=== PATIENT | female | born 1940 | race Caucasian/White ===

== ENCOUNTER 2020-02-27 22:48 | Inpatient (IN) | payer OTHER ==
[~2020-02-27] VITALS: Ht 157.5 cm; Wt 49.4 kg
[2020-02-28] MEDS ORDERED: MORPHINE SULFATE 4 MG/ML SYR/VIAL IV ONE (01:15)
[2020-02-28] MEDS ORDERED: ONDANSETRON HCL 4 MG/2 ML VIAL IV ONE (01:15)
[2020-02-28 01:37] LABS: Basophils # (auto) 0 10 ^3/uL (0-0.2); Basophils % (auto) 0.3 % (0.0-2.0); Eosinophils # (auto) 0.1 10 ^3/uL (0-0.8); Eosinophils % (auto) 0.5 % (0.0-7.0); Hematocrit 40.6 % (36.0-46.0); Hemoglobin 13.3 g/dL (12.2-16.2); Lymphocytes # (auto) 1.7 10 ^3/uL (0.4-5.4); Lymphocytes % (auto) 14.9 % (10.0-50.0); Mean Corpuscular Hemoglobin 32.3 pg (28.0-32.0); Mean Corpuscular Hgb Conc. 32.8 g/dL (32.0-36.0); Mean Corpuscular Volume 98.5 fL (80.0-100.0); Monocytes # (auto) 0.7 10 ^3/uL (0-1.3); Monocytes % (auto) 6.4 % (0.0-12.0); Neutrophils # (auto) 8.8 10 ^3/uL (1.6-8.6); Neutrophils % (auto) 77.9 % (37.0-80.0); Nucleated Red Blood Cells % 0.1 %; Platelet Count (auto) 179 10^3/uL (140-450); Red Blood Cells 4.13 10^6/uL (4.0-5.20); Red Cell Distribution Width 13.3 % (11.8-14.3); White Blood Cell 11.3 10^3/uL (4.4-10.8)
[2020-02-28 01:50] LABS: INR 0.98 (0.9-1.15); Partial Thromboplastin Time 23.8 sec (23.64-32.05)
[2020-02-28 01:53] LABS: Alanine Aminotransferase 24 U/L (13-56); Albumin 4.2 g/dL (3.4-5.0); Anion Gap 6 (5-15); Aspartate Aminotransferase 18 U/L (15-37); BUN/Creatinine Ratio 32.6; Blood Urea Nitrogen 28 mg/dL (7-18); Calcium 9.3 mg/dL (8.5-10.1); Carbon Dioxide 27 mmol/L (21-32); Chloride 109 mmol/L (98-107); GFR African American 82 mL/min; GFR Non-African American 68 mL/min; Glucose 103 mg/dL (74-106); Sodium 142 mmol/L (136-145)
[2020-02-28 01:58] LABS: Alkaline Phosphatase 63 U/L (45-117); Bilirubin, Total 0.5 mg/dL (0.2-1.0)
[2020-02-28 02:01] LABS: Potassium 5.6 mmol/L (3.5-5.1)
[2020-02-28] MEDS ORDERED: SODIUM ZIRCONIUM CYCL 10 GM PAK PO ONE (02:15)
[2020-02-28] MEDS ORDERED: ONDANSETRON HCL 4 MG/2 ML VIAL IV PRN (03:00)
[2020-02-28] MEDS ORDERED: MORPHINE SULF INJ 2 MG/ML SYRINGE 1ML IV PRN (03:00)
[2020-02-28] MEDS ORDERED: ACETAMINOPHEN 325 MG TAB PO PRN (03:00)
[2020-02-28] MEDS ORDERED: HYDROcodone-ACET 5/325MG TAB PO PRN (03:00)
[2020-02-28] MEDS ORDERED: NITROGLYCERIN 0.4 MG SL TAB SL PRN (03:00)
[2020-02-28 04:00] LABS: Urine Amorphous Crystal FEW /hpf (None Seen); Urine Bacteria FEW /hpf (None Seen); Urine Blood 1+ /uL (Negative); Urine Mucus FEW (None Seen); Urine WBC 1 /hpf (0 - 5)
--- NOTE | 2020-02-28 04:10 | NUR ---
Telemetry admit from ER MARIE BRANDT admitted to Telemetry unit after SBAR received. Patient oriented to Deyanira Plye RN primary RN, unit, room, bed, and unit policies regarding patient care and visiting hours. Patient now on continuous telemetry monitoring, tele box #35. Patient weighed by bedscale and encouraged to call if they need something. All questions and concerns addressed, patient verbalized understanding. Bed is in lowest locked poisition with bed rails up x2 and call light is within reach of the patient.
[2020-02-28] MEDS ORDERED: ATOR10TA PO (04:41)
[2020-02-28] MEDS ORDERED: TRAZ150T79 PO (04:41)
[2020-02-28] MEDS ORDERED: GABA100C9 PO (04:41)
[2020-02-28] MEDS ORDERED: MID10T PO (04:41)
[2020-02-28] MEDS ORDERED: CITA10TA70 PO (04:41)
[2020-02-28 05:15] VITALS: BP 111/64
[2020-02-28] MEDS: MORPHINE SULFATE 4 MG/ML SYR/VIAL IV PRN ×3 (06:18→18:20)
--- NOTE | 2020-02-28 07:40 | NUR ---
Opening Note Assumed pt care from NOC RN. Pt is a/ox4 with no s/s of distress or SOB. Pt is currently sitting upright in bed with mild c/o pain 4/10 to R Hip; discussed pain relieving interventions. Discussed POC with pt; pt verbalized understanding. Cox is present, draining to gravity. Safety measures maintained with call light within reach, bed in lowest position and side rails up. Will continue to monitor for changes.
[2020-02-28 09:00] VITALS: BP 101/56
[2020-02-28] MEDS ORDERED: FAMOTIDINE 20 MG TAB PO SCH (10:00)
--- NOTE | 2020-02-28 10:21 | NUR ---
Dr Lopez at Bedside MD to see pt. Discussed POC with pt. Plans to possibly transfer pt to [facility] due to pt's insurance. Discussed plans to possibly perform surgery; pending Ortho's consult. MD stated that he would keep updated on POC. Will continue to monitor.
[2020-02-28 11:18] LABS: BUN/Creatinine Ratio 31.6; Calcium 8.6 mg/dL (8.5-10.1); Potassium 3.9 mmol/L (3.5-5.1)
--- NOTE | 2020-02-28 11:35 | NUR ---
Updated Dr Noe Updated MD on POC. No new orders at this time.
[2020-02-28 13:00] VITALS: BP 95/50
--- NOTE | 2020-02-28 13:45 | NUR ---
COVID SWAB WALKED TO LAB
--- NOTE | 2020-02-28 13:55 | NUR ---
D/C PLANNING Per Dr Lopez, pt has been accepted into room 260A at [facility]. Accepting MD is Dr Vera. Will call case management.
--- NOTE | 2020-02-28 14:10 | NUR ---
D/C Alejandra Spoke with Jennifer in case management regarding case. Jennifer requested that I place a SS consul. Will continue with d/c plan. Addendum: 02/28/20 at 1648 by COURTNEY TAO RN RN Left message with Jennifer in case management for transportation status. Awaiting call back for further transport information.
[2020-02-28 14:33] VITALS: BP 99/50
[2020-02-28 17:00] VITALS: BP 101/48
--- NOTE | 2020-02-28 17:33 | NUR ---
Transfer Planning Spoke with manager case management with [employer] [facility]. Updated on pt's current status and POC for transfer. Stated that pt has bed at this time, just pending transportation. fruit or nut crops farm manager stated that she would contact me to help arrange pick up attendant. Will continue to monitor and continue with transfer. Addendum: 02/28/20 at 1813 by COURTNEY TAO RN RN Spoke with manager case management from [employer]. [facility] to pick up attendant pt at 1999. Will endorse to ARIELLE WATTS for transportation as well as report. Will continue with d/c. Mari's number for report [phone] To go to room 260A. Accepting MD alpesh Vera Addendum: 02/28/20 at 1817 by COURTNEY TAO RN RN [facility] fruit or nut crops farm manager further requested that I try to reach out to Dr Vera for confirmation of transfer. I have paged and left a message with MD regarding the need to contact [facility]. Will continue with transfer.
--- NOTE | 2020-02-28 20:13 | NUR ---
PATIENT TRANSFERRED TO [facility] VIA [facility]. ALL BELONGINGS AND APPROPRIATE DOCUMENTS SENT WITH PATIENT. PATIENT GOING TO ROOM 260A. NO ACUTE S/S OF DISTRESS NOTED. TELE BOX REMOVED AND SENT TO SOCIAL WORK THERAPIST. ATTEMPTED TO CALL [facility] AT [phone] TO GIVE REPORT. ON HOLD FOR 10 MINS WITH NO ANSWER. WILL ATTEMPT TO REACH RN AGAIN.
--- NOTE | 2020-02-28 21:01 | NUR ---
RECEIVED CALL BACK FROM RUBEN WATTS AT [facility]. REPORT GIVEN.
== END 2020-02-28 20:13 | disposition short-term general hospital (02) | DRG 536 ==
LOC: ER 22:48 → TELE 22:49 → TELE-CENTR 02-28 03:47
PROVIDERS: ADMIT Nurse Practitioner; ATTEND Internal Medicine Geriatric Medicine
DX: S72.144A Nondisplaced intertrochanteric fracture of right femur, initial encounter for closed fracture (principal); I10 Essential (primary) hypertension; E87.5 Hyperkalemia; E78.5 Hyperlipidemia, unspecified; I95.1 Orthostatic hypotension; M85.80 Other specified disorders of bone density and structure, unspecified site; W18.39XA Other fall on same level, initial encounter; Y93.89 Activity, other specified; Y92.89 Other specified places as the place of occurrence of the external cause; Z83.3 Family history of diabetes mellitus; Y99.8 Other external cause status; Z11.59 Encounter for screening for other viral diseases
CPT/HCPCS: 36415; 71045; 73502; 73700; 80048; 80053; 81001; 84484; 85025; 85610; 85730; 86850; 86900; 86901; 96374; 96375; 96376; G0378; J2405

== ENCOUNTER 2023-08-31 17:40 | Inpatient (IN) | payer OTHER ==
[~2023-08-31] VITALS: Ht 160 cm; Wt 43.3 kg
[~2023-08-31 17:40] MED LIST: ATOR10TA PO; CITA10TA5 PO; GABA-1308 PO; MID10T PO; TRAZ1TAB12 PO
[2023-08-31 18:42] LABS: Basophils # (auto) 0 10 ^3/uL (0-0.2); Basophils % (auto) 0.2 % (0.0-2.0); Eosinophils # (auto) 0 10 ^3/uL (0-0.8); Hematocrit 43.7 % (36.0-46.0); Hemoglobin 14.4 g/dL (12.2-16.2); Lymphocytes # (auto) 0.6 10 ^3/uL (0.4-5.4); Lymphocytes % (auto) 4.1 % (10.0-50.0); Mean Corpuscular Hemoglobin 30.5 pg (28.0-32.0); Mean Corpuscular Volume 92.2 fL (80.0-100.0); Monocytes # (auto) 0.5 10 ^3/uL (0-1.3); Monocytes % (auto) 3.7 % (0.0-12.0); Neutrophils # (auto) 12.8 10 ^3/uL (1.6-8.6); Red Blood Cells 4.74 10^6/uL (4.0-5.20); Red Cell Distribution Width 14.6 % (11.8-14.3); White Blood Cell 13.9 10^3/uL (4.4-10.8)
[2023-08-31 18:59] LABS: INR 1.01 (0.9-1.15); Partial Thromboplastin Time 22.9 SEC (24.5-34.5); Prothrombin Time 10.6 sec (9.3-11.8)
[2023-08-31 19:00] LABS: Alanine Aminotransferase 18 U/L (7-40); Albumin 4.8 g/dL (3.2-4.8); Alkaline Phosphatase 63 U/L (46-116); Anion Gap 13 (5-15); Aspartate Aminotransferase 24 U/L (13-40); BUN/Creatinine Ratio 32.9 (10.0-20.0); Blood Alcohol < 3.0 mg/dL (<10); Blood Urea Nitrogen 23 mg/dL (9-23); Carbon Dioxide 23 mmol/L (20-30); Chloride 110 mmol/L (98-107); Glucose 108 mg/dL (74-106); Potassium 3.3 mmol/L (3.5-5.1); Sodium 146 mmol/L (136-145)
[2023-08-31 19:01] VITALS: PULSE 71; RESP 13; O2SAT 97
[2023-08-31 19:01] LABS: Bilirubin, Total 0.7 mg/dL (0.2-1.0); Total Protein 7.7 g/dL (5.7-8.2)
[2023-08-31 19:19] LABS: Magnesium 1.8 mg/dL (1.6-2.6)
[2023-08-31 19:23] LABS: Lactic Acid w/Reflex 2.3 mmol/L (0.4-2.0)
[2023-08-31 19:36] VITALS: PULSE 68; RESP 13; O2SAT 96
[2023-08-31] MEDS: LACTATED RINGER'S 2,000 ML IV ONE (20:00)
[2023-08-31 20:47] LABS: Urine Bacteria FEW /hpf (None Seen); Urine Blood 1+ /uL (Negative); Urine Clarity Clear (Clear); Urine Hyaline Cast FEW /lpf (0 - 2); Urine Mucus FEW (None Seen); Urine Protein, UAD 1+ (Negative); Urine Specific Gravity 1.012 (1.001-1.035); Urine Urobilinogen Normal (Negative); Urine WBC 5 /hpf (0 - 5)
[2023-08-31 20:49] LABS: Urine Color STRAW (Yellow)
[2023-08-31 20:56] LABS: Amphetamine Screen, Urine Neg (NEGATIVE); Barbiturate Scree,Urine Neg (NEGATIVE); Benzodiazephine Screen, Urine Neg (NEGATIVE); Cannabinoid Screen, Urine Neg (NEGATIVE); Cocaine Screen, Urine Neg (NEGATIVE); Opiate Scree,Urine Neg (NEGATIVE); Phencyclidine Screen, Urine Neg (NEGATIVE)
[2023-08-31] MEDS ORDERED: ONDANSETRON HCL 4 MG/2 ML VIAL IV PRN (22:30)
[2023-08-31] MEDS ORDERED: MORPHINE SULFATE INJ 2 MG/ml SYRG IV PRN (22:30)
[2023-08-31] MEDS ORDERED: NITROGLYCERIN 0.4 MG SL TAB SL PRN (22:30)
[2023-08-31] MEDS: POTASSIUM CHL 20MEQ/100ML 100 ML IV ONE (22:52)
[2023-08-31] MEDS: D5W/SOD CHLO 0.9% 1,000 ML IV SCH (22:52)
[2023-09-01] VITALS (8 sets, daily range): BP systolic 142–159; BP diastolic 56–97; PULSE 75–98; RESP 16–18; TEMP 98.1–99.1; O2SAT 95–100
[2023-09-01] MEDS: hydrALAZINE HCL 20 MG/ML VL IV PRN (02:28)
[2023-09-01 06:24] LABS: Basophils # (auto) 0 10 ^3/uL (0-0.2); Basophils % (auto) 0.1 % (0.0-2.0); Eosinophils # (auto) 0 10 ^3/uL (0-0.8); Hematocrit 37.3 % (36.0-46.0); Hemoglobin 12.5 g/dL (12.2-16.2); Lymphocytes # (auto) 0.9 10 ^3/uL (0.4-5.4); Lymphocytes % (auto) 9.1 % (10.0-50.0); Mean Corpuscular Hemoglobin 30.9 pg (28.0-32.0); Mean Corpuscular Hgb Conc. 33.6 g/dL (32.0-36.0); Mean Corpuscular Volume 92.1 fL (80.0-100.0); Monocytes # (auto) 0.6 10 ^3/uL (0-1.3); Monocytes % (auto) 6.6 % (0.0-12.0); Neutrophils # (auto) 8.1 10 ^3/uL (1.6-8.6); Neutrophils % (auto) 84.2 % (37.0-80.0); Red Blood Cells 4.05 10^6/uL (4.0-5.20); Red Cell Distribution Width 14.8 % (11.8-14.3); White Blood Cell 9.7 10^3/uL (4.4-10.8)
[2023-09-01 06:34] LABS: Chloride 113 mmol/L (98-107); Potassium 3.3 mmol/L (3.5-5.1); Sodium 145 mmol/L (136-145)
[2023-09-01 06:35] LABS: Anion Gap 8 (5-15); Calcium 9.2 mg/dL (8.5-10.1); Carbon Dioxide 24 mmol/L (20-30)
[2023-09-01 06:40] LABS: BUN/Creatinine Ratio 18.5 (10.0-20.0); Blood Urea Nitrogen 12 mg/dL (9-23); Glucose 126 mg/dL (74-106)
[2023-09-01] MEDS: ENOXAPARIN SOD 40 MG/0.4 ML SYRINGE SC SCH (09:12)
[2023-09-01] MEDS: cefTRIAXone 1GM/50ML D5W 50 ML IV SCH (09:12)
[2023-09-01] MEDS: D5W/SOD CHL 0.45%/KCL 20MEQ 1,000 ML IV SCH (13:11)
[2023-09-01] MEDS ORDERED: CITA-73 PO (16:32)
[2023-09-01] MEDS ORDERED: BACL10TA PO (16:32)
[2023-09-01] MEDS ORDERED: GABA-1250 PO (16:32)
[2023-09-01] MEDS ORDERED: LEV25T GT (16:32)
[2023-09-01] MEDS ORDERED: ATOR20TA50 PO (16:32)
[2023-09-02] VITALS (8 sets, daily range): BP systolic 126–159; BP diastolic 58–91; PULSE 87–104; RESP 12–18; TEMP 97.3–98.9; O2SAT 93–98
[2023-09-02 06:54] LABS: Basophils # (auto) 0 10 ^3/uL (0-0.2); Basophils % (auto) 0.2 % (0.0-2.0); Eosinophils # (auto) 0 10 ^3/uL (0-0.8); Eosinophils % (auto) 0.3 % (0.0-7.0); Hematocrit 35.6 % (36.0-46.0); Hemoglobin 12.1 g/dL (12.2-16.2); Lymphocytes # (auto) 1.2 10 ^3/uL (0.4-5.4); Lymphocytes % (auto) 16.1 % (10.0-50.0); Mean Corpuscular Hemoglobin 31.3 pg (28.0-32.0); Mean Corpuscular Hgb Conc. 33.9 g/dL (32.0-36.0); Mean Corpuscular Volume 92.3 fL (80.0-100.0); Monocytes # (auto) 0.6 10 ^3/uL (0-1.3); Monocytes % (auto) 7.8 % (0.0-12.0); Neutrophils # (auto) 5.5 10 ^3/uL (1.6-8.6); Neutrophils % (auto) 75.6 % (37.0-80.0); Red Blood Cells 3.86 10^6/uL (4.0-5.20); Red Cell Distribution Width 14.7 % (11.8-14.3); White Blood Cell 7.2 10^3/uL (4.4-10.8)
[2023-09-02 07:03] LABS: Alanine Aminotransferase 10 U/L (7-40); Albumin 3.8 g/dL (3.2-4.8); Alkaline Phosphatase 48 U/L (46-116); Anion Gap 8 (5-15); Aspartate Aminotransferase 14 U/L (13-40); BUN/Creatinine Ratio 19.6 (10.0-20.0); Blood Urea Nitrogen 10 mg/dL (9-23); Calcium 8.8 mg/dL (8.7-10.4); Carbon Dioxide 26 mmol/L (20-30); Chloride 110 mmol/L (98-107); Glucose 105 mg/dL (74-106); Magnesium 1.7 mg/dL (1.6-2.6); Potassium 2.8 mmol/L (3.5-5.1); Sodium 144 mmol/L (136-145)
[2023-09-02 07:04] LABS: Bilirubin, Total 0.8 mg/dL (0.2-1.0); Total Protein 6.2 g/dL (5.7-8.2)
[2023-09-02 07:11] LABS: Cholesterol 135 mg/dL (< 200); HDL Cholesterol 56 mg/dL (40-59); LDL Cholesterol 58 mg/dL (< 100); Triglycerides 58 mg/dL (< 150)
[2023-09-02] MEDS: MAGNESIUM SULFATE 1GM/100ML 100 ML IV SCH (13:57)
[2023-09-02] MEDS: POTASSIUM CHL 20MEQ/100ML 100 ML IV SCH (14:00)
[2023-09-02] MEDS ORDERED: LORazepam 2MG/ML-1ML VIAL IV PRN (20:45)
[2023-09-02] MEDS: CARBIDOPA W LEVODOPA 25/100mg TABLET PO SCH (22:00)
[2023-09-03 04:43] VITALS: BP 140/75; PULSE 86; RESP 14; TEMP 97.9; O2SAT 96
[2023-09-03 06:31] LABS: Anion Gap 7 (5-15); Carbon Dioxide 25 mmol/L (20-30); Chloride 109 mmol/L (98-107); Potassium 3.4 mmol/L (3.5-5.1); Sodium 141 mmol/L (136-145)
[2023-09-03 06:32] LABS: Calcium 8.4 mg/dL (8.7-10.4)
[2023-09-03 06:37] LABS: BUN/Creatinine Ratio 18.4 (10.0-20.0); Blood Urea Nitrogen 9 mg/dL (9-23); Glucose 107 mg/dL (74-106)
[2023-09-03 08:00] VITALS: PULSE 89; PULSE 93; RESP 18; O2SAT 98
[2023-09-03 09:00] VITALS: BP 141/76; PULSE 94; RESP 20; TEMP 97.9; O2SAT 96
[2023-09-03] MEDS: POTASSIUM CHL 20MEQ/100ML 100 ML IV ONE (12:23)
[2023-09-03 13:00] VITALS: BP 134/71; PULSE 112; RESP 20; TEMP 98; O2SAT 95
[2023-09-03 16:54] VITALS: BP 142/82; PULSE 99; RESP 20; TEMP 98.2; O2SAT 96
[2023-09-03 20:00] VITALS: PULSE 97
[2023-09-04] VITALS (7 sets, daily range): BP systolic 120–143; BP diastolic 69–80; PULSE 76–91; RESP 12–20; TEMP 98.1–98.3; O2SAT 95–98
[2023-09-04 07:25] LABS: Basophils # (auto) 0 10 ^3/uL (0-0.2); Basophils % (auto) 0.2 % (0.0-2.0); Eosinophils # (auto) 0.1 10 ^3/uL (0-0.8); Eosinophils % (auto) 1.7 % (0.0-7.0); Hematocrit 37.3 % (36.0-46.0); Hemoglobin 12.6 g/dL (12.2-16.2); Lymphocytes # (auto) 1.3 10 ^3/uL (0.4-5.4); Lymphocytes % (auto) 17.9 % (10.0-50.0); Mean Corpuscular Hemoglobin 31.2 pg (28.0-32.0); Mean Corpuscular Hgb Conc. 33.7 g/dL (32.0-36.0); Mean Corpuscular Volume 92.4 fL (80.0-100.0); Monocytes # (auto) 0.3 10 ^3/uL (0-1.3); Monocytes % (auto) 4.6 % (0.0-12.0); Neutrophils # (auto) 5.5 10 ^3/uL (1.6-8.6); Neutrophils % (auto) 75.6 % (37.0-80.0); Red Blood Cells 4.03 10^6/uL (4.0-5.20); Red Cell Distribution Width 14.4 % (11.8-14.3); White Blood Cell 7.3 10^3/uL (4.4-10.8)
[2023-09-04 07:41] LABS: Anion Gap 7 (5-15); Carbon Dioxide 25 mmol/L (20-30); Chloride 108 mmol/L (98-107); Potassium 3.8 mmol/L (3.5-5.1); Sodium 140 mmol/L (136-145)
[2023-09-04 07:42] LABS: Calcium 8.7 mg/dL (8.7-10.4)
[2023-09-04 07:47] LABS: BUN/Creatinine Ratio 14.8 (10.0-20.0); Blood Urea Nitrogen 8 mg/dL (9-23); Glucose 113 mg/dL (74-106)
[2023-09-04 07:48] LABS: Magnesium 1.8 mg/dL (1.6-2.6)
[2023-09-04] MEDS: D5W/SOD CHL 0.45%/KCL 20MEQ 1,000 ML IV SCH (13:22)
[2023-09-04] MEDS: MAGNESIUM OXIDE 400 MG TAB PO SCH (21:49)
[2023-09-05] VITALS (7 sets, daily range): BP systolic 113–147; BP diastolic 67–79; PULSE 74–89; RESP 16–76; TEMP 97.7–98.6; O2SAT 92–96
[2023-09-05 06:22] LABS: Anion Gap 6 (5-15); Carbon Dioxide 27 mmol/L (20-30); Chloride 109 mmol/L (98-107); Potassium 3.5 mmol/L (3.5-5.1); Sodium 142 mmol/L (136-145)
[2023-09-05 06:23] LABS: Calcium 8.5 mg/dL (8.5-10.1)
[2023-09-05 06:28] LABS: Blood Urea Nitrogen 9 mg/dL (9-23); Glucose 93 mg/dL (74-106)
[2023-09-05 11:30] LABS: Folate (Folic Acid) 8.39 ng/mL (>5.38)
[2023-09-06 04:50] VITALS: BP 138/74; PULSE 78; RESP 20; TEMP 98.1; O2SAT 95
[2023-09-06 08:00] VITALS: PULSE 82; PULSE 88; RESP 19; O2SAT 96
[2023-09-06 09:16] VITALS: BP 117/62; PULSE 81; RESP 17; TEMP 98.3; O2SAT 96
[2023-09-06 12:43] VITALS: BP 132/69; PULSE 72; RESP 17; TEMP 98; O2SAT 95
[2023-09-06 15:23] VITALS: BP 159/89
[2023-09-06 16:59] VITALS: BP 143/85; PULSE 76; RESP 16; TEMP 97.3; O2SAT 94
== END 2023-09-06 18:00 | DRG 640 ==
LOC: ER 17:40 → EDUNIT# 17:40 → EDBD 17:40 → TELE-EAST 22:35 → TELE 22:35 → TELE-EAST 23:49
PROVIDERS: ADMIT Nurse Practitioner; ATTEND Internal Medicine Geriatric Medicine
DX: E86.0 Dehydration (principal); G93.41 Metabolic encephalopathy; N39.0 Urinary tract infection, site not specified; E87.1 Hypo-osmolality and hyponatremia; E87.20 Acidosis, unspecified; E87.6 Hypokalemia; E78.5 Hyperlipidemia, unspecified; E03.9 Hypothyroidism, unspecified; F17.200 Nicotine dependence, unspecified, uncomplicated; G20.A1 Parkinson's disease without dyskinesia, without mention of fluctuations; G30.9 Alzheimer's disease, unspecified; F32.A Depression, unspecified; Z81.1 Family history of alcohol abuse and dependence; Z83.3 Family history of diabetes mellitus
CPT/HCPCS: 36415; 70450; 70551; 71045; 80048; 80053; 80061; 80307; 80320; 81001; 82140; 82607; 82746; 83605; 83735; 84443; 84484; 85025; 85610; 85730; 87040; 92507; 92610; 93005; 93306; 93886; 95819; 96361; 96365; 97110; 97116; 97163; 97530; G0378; J3480; J7042

== ENCOUNTER 2023-12-06 16:42 | Inpatient (IN) | payer OTHER ==
[~2023-12-06] VITALS: Ht 167.6 cm; Wt 40.1 kg
[~2023-12-06 16:42] MED LIST changes: -ATOR10TA PO; +ATOR20TA50 PO; +BACL10TA PO; +BUSP5TAB51 PO; +GABA-1250 PO; -GABA-1308 PO; +LEV25T PO; +PERCOT PO; +TRAZ-181 PO; -TRAZ1TAB12 PO
[2023-12-06 18:20] VITALS: O2SAT 96
[2023-12-06 19:16] LABS: Basophils # (auto) 0 10 ^3/uL (0-0.2); Basophils % (auto) 0.1 % (0.0-2.0); Eosinophils # (auto) 0 10 ^3/uL (0-0.8); Eosinophils % (auto) 0.1 % (0.0-7.0); Hematocrit 39.1 % (36.0-46.0); Hemoglobin 12.6 g/dL (12.2-16.2); Lymphocytes # (auto) 0.5 10 ^3/uL (0.4-5.4); Lymphocytes % (auto) 4.1 % (10.0-50.0); Mean Corpuscular Hemoglobin 31.3 pg (28.0-32.0); Mean Corpuscular Hgb Conc. 32.4 g/dL (32.0-36.0); Mean Corpuscular Volume 96.7 fL (80.0-100.0); Monocytes # (auto) 0.8 10 ^3/uL (0-1.3); Monocytes % (auto) 5.9 % (0.0-12.0); Neutrophils # (auto) 11.9 10 ^3/uL (1.6-8.6); Neutrophils % (auto) 89.8 % (37.0-80.0); Red Blood Cells 4.04 10^6/uL (4.0-5.20); Red Cell Distribution Width 16.1 % (11.8-14.3); White Blood Cell 13.3 10^3/uL (4.4-10.8)
[2023-12-06 19:30] VITALS: PULSE 111; RESP 14; O2SAT 97
[2023-12-06 19:53] LABS: Urine Bacteria None Seen /hpf (None Seen)
[2023-12-06 20:14] LABS: Alanine Aminotransferase 11 U/L (7-40); Albumin 4.3 g/dL (3.2-4.8); Alkaline Phosphatase 84 U/L (46-116); Anion Gap 11 (5-15); Aspartate Aminotransferase 23 U/L (13-40); BUN/Creatinine Ratio 10.6 (10.0-20.0); Blood Urea Nitrogen 11 mg/dL (9-23); Calcium 9.7 mg/dL (8.5-10.1); Carbon Dioxide 24 mmol/L (20-30); Chloride 106 mmol/L (98-107); Glucose 122 mg/dL (74-106); Sodium 141 mmol/L (136-145)
[2023-12-06 20:15] LABS: Bilirubin, Total 0.8 mg/dL (0.2-1.0); Total Protein 7.1 g/dL (5.7-8.2)
[2023-12-06 20:30] LABS: Urine Blood 1+ /uL (Negative); Urine Budding Yeast OCCASIONAL /hpf (None Seen); Urine Clarity Turbid (Clear); Urine Color Yellow (Yellow); Urine Hyaline Cast MANY /lpf (0 - 2); Urine Mucus FEW (None Seen); Urine Protein, UAD 1+ (Negative); Urine Specific Gravity 1.015 (1.001-1.035); Urine Urobilinogen Normal (Negative); Urine WBC 6 /hpf (0 - 5)
[2023-12-06] MEDS: SODIUM CHLORIDE 0.9% 1,000 ML IV ONE (22:25)
[2023-12-06] MEDS: cefTRIAXone 1GM/50ML D5W 50 ML IV ONE (22:25)
[2023-12-06] MEDS: hydrALAZINE HCL 20 MG/ML VL IV ONE (22:26)
[2023-12-06] MEDS: LORazepam 2MG/ML-1ML VIAL IV ONE (23:07)
[2023-12-06 23:13] LABS: Amphetamine Screen, Urine Neg (NEGATIVE); Barbiturate Scree,Urine Neg (NEGATIVE); Benzodiazephine Screen, Urine Neg (NEGATIVE); Cannabinoid Screen, Urine Neg (NEGATIVE); Cocaine Screen, Urine Neg (NEGATIVE); Opiate Scree,Urine Neg (NEGATIVE); Phencyclidine Screen, Urine Neg (NEGATIVE)
[2023-12-06] MEDS ORDERED: ONDANSETRON HCL 4 MG/2 ML VIAL IV PRN (23:15)
[2023-12-06] MEDS: POTASSIUM CHLORIDE 20 MEQ, LIDOCAINE 1% (LOCAL ANESTH.) 2 ML in SODIUM CHL 0.9% 100 ML IV ONE (23:15)
[2023-12-07 06:46] LABS: Alanine Aminotransferase 21 U/L (7-40); Albumin 3.9 g/dL (3.2-4.8); Alkaline Phosphatase 72 U/L (46-116); Anion Gap 9 (5-15); Aspartate Aminotransferase 50 U/L (13-40); BUN/Creatinine Ratio 15.7 (10.0-20.0); Bilirubin, Total 0.8 mg/dL (0.2-1.0); Blood Urea Nitrogen 13 mg/dL (9-23); Calcium 9.3 mg/dL (8.5-10.1); Carbon Dioxide 25 mmol/L (20-30); Chloride 109 mmol/L (98-107); Glucose 120 mg/dL (74-106); Potassium 2.9 mmol/L (3.5-5.1); Sodium 143 mmol/L (136-145); Total Protein 6.4 g/dL (5.7-8.2)
[2023-12-07 06:48] LABS: Basophils # (auto) 0 10 ^3/uL (0-0.2); Basophils % (auto) 0.3 % (0.0-2.0); Eosinophils # (auto) 0 10 ^3/uL (0-0.8); Eosinophils % (auto) 0.1 % (0.0-7.0); Hemoglobin 11.7 g/dL (12.2-16.2); Lymphocytes # (auto) 0.7 10 ^3/uL (0.4-5.4); Lymphocytes % (auto) 6.7 % (10.0-50.0); Mean Corpuscular Hemoglobin 31.2 pg (28.0-32.0); Mean Corpuscular Hgb Conc. 32.6 g/dL (32.0-36.0); Mean Corpuscular Volume 95.8 fL (80.0-100.0); Monocytes # (auto) 0.6 10 ^3/uL (0-1.3); Monocytes % (auto) 5.7 % (0.0-12.0); Neutrophils # (auto) 8.9 10 ^3/uL (1.6-8.6); Neutrophils % (auto) 87.2 % (37.0-80.0); Nucleated Red Blood Cells % 0.1 %; Red Blood Cells 3.76 10^6/uL (4.0-5.20); White Blood Cell 10.2 10^3/uL (4.4-10.8)
[2023-12-07] MEDS: LEVOTHYROXINE SODIUM 25 MCG TAB PO SCH (07:02)
[2023-12-07] MEDS: GABAPENTIN 300 MG CAP PO SCH (09:57)
[2023-12-07] MEDS: ENOXAPARIN SOD 40 MG/0.4 ML SYRINGE SC SCH (09:58)
[2023-12-07] MEDS: POTASSIUM CHL 20 Meq TABLET PO ONE (14:29)
[2023-12-07] MEDS: SODIUM CHLORIDE 0.9% 1,000 ML IV SCH (14:29)
[2023-12-07] MEDS ORDERED: VENL37.588 PO (17:17)
[2023-12-07] MEDS ORDERED: CARB-112 PO (17:17)
[2023-12-07] MEDS ORDERED: PRIM50TA27 PO (17:17)
[2023-12-07 20:00] VITALS: BP 115/65; PULSE 85; RESP 16; TEMP 97.9; O2SAT 93
[2023-12-07 21:00] VITALS: BP 115/65; PULSE 85; RESP 16; TEMP 97.9; O2SAT 93
[2023-12-07] MEDS: cefTRIAXone 1GM/50ML D5W 50 ML IV SCH (21:13)
[2023-12-07] MEDS: ATORVASTATIN 20 MG TAB PO SCH (21:13)
[2023-12-08] VITALS (7 sets, daily range): BP systolic 120–152; BP diastolic 66–79; PULSE 76–88; RESP 14–18; TEMP 97.9–98.8; O2SAT 90–94
[2023-12-08 07:05] LABS: Basophils # (auto) 0 10 ^3/uL (0-0.2); Basophils % (auto) 0.3 % (0.0-2.0); Eosinophils # (auto) 0.1 10 ^3/uL (0-0.8); Eosinophils % (auto) 1.5 % (0.0-7.0); Hematocrit 34.7 % (36.0-46.0); Hemoglobin 11.4 g/dL (12.2-16.2); Lymphocytes # (auto) 1.1 10 ^3/uL (0.4-5.4); Lymphocytes % (auto) 13.9 % (10.0-50.0); Mean Corpuscular Hgb Conc. 32.8 g/dL (32.0-36.0); Mean Corpuscular Volume 94.6 fL (80.0-100.0); Monocytes # (auto) 0.5 10 ^3/uL (0-1.3); Monocytes % (auto) 5.9 % (0.0-12.0); Neutrophils # (auto) 6.5 10 ^3/uL (1.6-8.6); Neutrophils % (auto) 78.4 % (37.0-80.0); Red Blood Cells 3.66 10^6/uL (4.0-5.20); Red Cell Distribution Width 16.5 % (11.8-14.3); White Blood Cell 8.2 10^3/uL (4.4-10.8)
[2023-12-08 07:35] LABS: Calcium 9.1 mg/dL (8.5-10.1); Chloride 111 mmol/L (98-107); Potassium 3.5 mmol/L (3.5-5.1); Sodium 143 mmol/L (136-145)
[2023-12-08 07:36] LABS: Anion Gap 8 (5-15); Carbon Dioxide 24 mmol/L (20-30)
[2023-12-08 07:41] LABS: Glucose 93 mg/dL (74-106)
[2023-12-08 07:42] LABS: Blood Urea Nitrogen 13 mg/dL (9-23); Magnesium 1.8 mg/dL (1.6-2.6)
[2023-12-08] MEDS ORDERED: CEPH250C PO (12:12)
[2023-12-08] MEDS: ACETAMINOPHEN 325 MG TAB PO PRN (14:43)
[2023-12-09] VITALS (8 sets, daily range): BP systolic 118–179; BP diastolic 54–100; PULSE 77–99; RESP 17–18; TEMP 97.7–98.5; O2SAT 91–97
[2023-12-09] MEDS: hydrALAZINE HCL 20 MG/ML VL IV PRN (05:38)
[2023-12-10] VITALS (10 sets, daily range): BP systolic 116–184; BP diastolic 62–92; PULSE 75–89; RESP 17–21; TEMP 97.6–98.4; O2SAT 91–97
[2023-12-10 06:42] LABS: Basophils # (auto) 0 10 ^3/uL (0-0.2); Basophils % (auto) 0.4 % (0.0-2.0); Eosinophils # (auto) 0.2 10 ^3/uL (0-0.8); Hematocrit 35.5 % (36.0-46.0); Hemoglobin 11.8 g/dL (12.2-16.2); Lymphocytes # (auto) 1.6 10 ^3/uL (0.4-5.4); Mean Corpuscular Hemoglobin 31.7 pg (28.0-32.0); Mean Corpuscular Hgb Conc. 33.4 g/dL (32.0-36.0); Mean Corpuscular Volume 95.1 fL (80.0-100.0); Monocytes # (auto) 0.4 10 ^3/uL (0-1.3); Monocytes % (auto) 7.1 % (0.0-12.0); Neutrophils # (auto) 3.8 10 ^3/uL (1.6-8.6); Neutrophils % (auto) 62.5 % (37.0-80.0); Red Blood Cells 3.73 10^6/uL (4.0-5.20); Red Cell Distribution Width 15.9 % (11.8-14.3); White Blood Cell 6.1 10^3/uL (4.4-10.8)
[2023-12-10 06:49] LABS: Anion Gap 8 (5-15); Carbon Dioxide 25 mmol/L (20-30); Chloride 109 mmol/L (98-107); Potassium 3.6 mmol/L (3.5-5.1); Sodium 142 mmol/L (136-145)
[2023-12-10 06:50] LABS: Calcium 9.3 mg/dL (8.5-10.1)
[2023-12-10 06:55] LABS: BUN/Creatinine Ratio 21.7 (10.0-20.0); Blood Urea Nitrogen 13 mg/dL (9-23); Glucose 88 mg/dL (74-106); Magnesium 1.6 mg/dL (1.6-2.6)
[2023-12-11] VITALS (8 sets, daily range): BP systolic 133–178; BP diastolic 69–84; PULSE 75–93; RESP 16–20; TEMP 97.7–98.3; O2SAT 90–93
[2023-12-12] VITALS (8 sets, daily range): BP systolic 132–154; BP diastolic 65–85; PULSE 62–88; RESP 16–20; TEMP 36.8; O2SAT 90–92
[2023-12-13] VITALS (7 sets, daily range): BP systolic 122–148; BP diastolic 68–83; PULSE 63–85; RESP 16–19; TEMP 97.7–99.7; O2SAT 91–94
[2023-12-14] VITALS (8 sets, daily range): BP systolic 108–150; BP diastolic 62–80; PULSE 69–80; RESP 15–19; TEMP 97.6–98.5; O2SAT 90–94
[2023-12-15 05:00] VITALS: BP 135/68; PULSE 72; RESP 16; TEMP 98.1; O2SAT 91
[2023-12-15 08:00] VITALS: PULSE 77; RESP 20; O2SAT 99
[2023-12-15 08:52] VITALS: BP 148/79; PULSE 77; RESP 16; TEMP 98.8; O2SAT 99
[2023-12-15 12:58] VITALS: BP 101/60; PULSE 77; RESP 16; TEMP 98; O2SAT 92
[2023-12-15 14:39] VITALS: BP 154/70
[2023-12-15 17:00] VITALS: BP 139/62; PULSE 76; RESP 18; TEMP 98.2; O2SAT 97
== END 2023-12-15 19:45 | DRG 70 ==
LOC: EDUNIT# 16:42 → EDBD 16:42 → ER 16:42 → OVERFLOW 23:11 → WEST WING 12-07 16:46
PROVIDERS: ADMIT Internal Medicine Geriatric Medicine; ATTEND Internal Medicine Geriatric Medicine
DX: G93.41 Metabolic encephalopathy (principal); N17.0 Acute kidney failure with tubular necrosis; N39.0 Urinary tract infection, site not specified; E86.0 Dehydration; G20.A1 Parkinson's disease without dyskinesia, without mention of fluctuations; E87.6 Hypokalemia; E03.9 Hypothyroidism, unspecified; E78.5 Hyperlipidemia, unspecified; F17.200 Nicotine dependence, unspecified, uncomplicated; I25.2 Old myocardial infarction; Z83.3 Family history of diabetes mellitus; Z82.49 Family history of ischemic heart disease and other diseases of the circulatory system; W01.0XXA Fall on same level from slipping, tripping and stumbling without subsequent striking against object, initial encounter; Y92.009 Unspecified place in unspecified non-institutional (private) residence as the place of occurrence of the external cause; Z87.440 Personal history of urinary (tract) infections
CPT/HCPCS: 36415; 70450; 80048; 80053; 80307; 81001; 83605; 83735; 85025; 87040; 95819; 97110; 97116; 97163; 97530; G0378; J2001

== ENCOUNTER 2024-02-22 12:55 | Inpatient (IN) | payer OTHER ==
[~2024-02-22] VITALS: Ht 157.5 cm; Wt 42.4 kg
[~2024-02-22 12:55] MED LIST changes: +CARB-112 PO; +CEPH250C PO; +PRIM50TA27 PO; +VENL37.588 PO
[2024-02-22 13:10] VITALS: PULSE 80; RESP 16; O2SAT 96
[2024-02-22] MEDS: fentaNYL CITRATE 100 MCG/2 ML VL IV ONE (14:25)
[2024-02-22] MEDS: SODIUM CHLORIDE 0.9% 1,000 ML IV ONE (14:30)
[2024-02-22 14:36] LABS: Urine Bacteria None Seen /hpf (None Seen)
[2024-02-22 14:51] LABS: Urine Blood TRACE /uL (Negative); Urine Clarity Clear (Clear); Urine Color Light-Yellow (Yellow); Urine Protein, UAD TRACE (Negative); Urine Specific Gravity 1.012 (1.001-1.035); Urine Urobilinogen Normal (Negative); Urine WBC 2 /hpf (0 - 5)
[2024-02-22 15:15] LABS: Basophils # (auto) 0 10 ^3/uL (0-0.2); Basophils % (auto) 0.2 % (0.0-2.0); Eosinophils # (auto) 0 10 ^3/uL (0-0.8); Hematocrit 36.3 % (36.0-46.0); Hemoglobin 12.3 g/dL (12.2-16.2); Lymphocytes # (auto) 0.6 10 ^3/uL (0.4-5.4); Lymphocytes % (auto) 5.8 % (10.0-50.0); Mean Corpuscular Hemoglobin 31.6 pg (28.0-32.0); Monocytes # (auto) 0.4 10 ^3/uL (0-1.3); Neutrophils # (auto) 9.6 10 ^3/uL (1.6-8.6); Nucleated Red Blood Cells % 0.1 %; Red Cell Distribution Width 15.4 % (11.8-14.3); White Blood Cell 10.6 10^3/uL (4.4-10.8)
[2024-02-22 15:37] LABS: Alanine Aminotransferase 21 U/L (7-40); Albumin 4.2 g/dL (3.2-4.8); Alkaline Phosphatase 146 U/L (46-116); Anion Gap 8 (5-15); Aspartate Aminotransferase 20 U/L (13-40); BUN/Creatinine Ratio 20.3 (10.0-20.0); Bilirubin, Total 0.9 mg/dL (0.2-1.0); Blood Urea Nitrogen 13 mg/dL (9-23); Calcium 9.2 mg/dL (8.7-10.4); Carbon Dioxide 28 mmol/L (20-30); Chloride 108 mmol/L (98-107); Glucose 103 mg/dL (74-106); Sodium 144 mmol/L (136-145); Total Protein 6.9 g/dL (5.7-8.2)
[2024-02-22 15:50] LABS: Potassium 2.5 mmol/L (3.5-5.1)
[2024-02-22] MEDS: ONDANSETRON HCL 4 MG/2 ML VIAL IV ONE (17:15)
[2024-02-22] MEDS: POTASSIUM EFFERVESENT TAB 25 MEQ PO ONE (17:15)
[2024-02-22] MEDS: MORPHINE SULFATE INJ 2 MG/ml SYRG IV ONE (17:18)
[2024-02-22 19:30] VITALS: PULSE 82; RESP 11; O2SAT 99
[2024-02-22] MEDS ORDERED: ACETAMINOPHEN 325 MG TAB PO PRN (19:45)
[2024-02-22] MEDS ORDERED: ONDANSETRON HCL 4 MG/2 ML VIAL IV PRN (19:45)
[2024-02-22] MEDS: LACTATED RINGER'S 1,000 ML IV ONE (21:23)
[2024-02-22] MEDS: HYDROmorphone HCL 2 MG/ML VL/or syr IV PRN (21:24)
[2024-02-22] MEDS: SODIUM CHLOR 0.9% PF (SALINE LOCK) 10ML VIAL/SYR IV SCH (21:24)
[2024-02-23 07:34] LABS: Basophils # (auto) 0 10 ^3/uL (0-0.2); Basophils % (auto) 0.6 % (0.0-2.0); Eosinophils # (auto) 0 10 ^3/uL (0-0.8); Eosinophils % (auto) 0.6 % (0.0-7.0); Hematocrit 33.2 % (36.0-46.0); Hemoglobin 11.2 g/dL (12.2-16.2); Lymphocytes # (auto) 0.9 10 ^3/uL (0.4-5.4); Lymphocytes % (auto) 12.6 % (10.0-50.0); Mean Corpuscular Hemoglobin 31.3 pg (28.0-32.0); Mean Corpuscular Hgb Conc. 33.7 g/dL (32.0-36.0); Mean Corpuscular Volume 92.9 fL (80.0-100.0); Monocytes # (auto) 0.4 10 ^3/uL (0-1.3); Monocytes % (auto) 5.6 % (0.0-12.0); Neutrophils # (auto) 5.8 10 ^3/uL (1.6-8.6); Neutrophils % (auto) 80.6 % (37.0-80.0); Red Blood Cells 3.57 10^6/uL (4.0-5.20); Red Cell Distribution Width 15.2 % (11.8-14.3); White Blood Cell 7.2 10^3/uL (4.4-10.8)
[2024-02-23 07:42] LABS: Chloride 111 mmol/L (98-107); Potassium 3.1 mmol/L (3.5-5.1); Sodium 145 mmol/L (136-145)
[2024-02-23 07:43] LABS: Anion Gap 7 (5-15); Carbon Dioxide 27 mmol/L (20-30)
[2024-02-23 07:44] LABS: Calcium 8.8 mg/dL (8.7-10.4)
[2024-02-23 07:48] LABS: Glucose 95 mg/dL (74-106)
[2024-02-23 07:49] LABS: BUN/Creatinine Ratio 21.8 (10.0-20.0); Blood Urea Nitrogen 12 mg/dL (9-23)
[2024-02-23] MEDS: HYDROcodone-ACET 5/325MG TAB PO PRN (08:23)
[2024-02-23 09:05] VITALS: PULSE 81; RESP 16; O2SAT 95
[2024-02-23] MEDS: FAMOTIDINE 20 MG TAB PO SCH (10:43)
[2024-02-23] MEDS: ENOXAPARIN SOD 30 MG/0.3 ML SYRINGE SC SCH (10:44)
[2024-02-23 13:46] VITALS: BP 145/76; PULSE 80; RESP 16; TEMP 98.1; O2SAT 97
[2024-02-23 14:08] VITALS: BP 145/76; PULSE 80; RESP 16; TEMP 98.1; O2SAT 97
[2024-02-23 16:42] VITALS: BP 158/71; PULSE 75; RESP 14; TEMP 97.6; O2SAT 95
[2024-02-23 21:00] VITALS: BP 159/75; PULSE 81; RESP 18; TEMP 99.1; O2SAT 90
[2024-02-24] VITALS (7 sets, daily range): BP systolic 130–152; BP diastolic 63–78; PULSE 71–81; RESP 17–19; TEMP 97.4–98.2; O2SAT 86–98
[2024-02-24 07:37] LABS: Basophils # (auto) 0 10 ^3/uL (0-0.2); Basophils % (auto) 0.3 % (0.0-2.0); Eosinophils # (auto) 0.1 10 ^3/uL (0-0.8); Eosinophils % (auto) 2.2 % (0.0-7.0); Hematocrit 32.2 % (36.0-46.0); Lymphocytes # (auto) 1.3 10 ^3/uL (0.4-5.4); Lymphocytes % (auto) 19.5 % (10.0-50.0); Mean Corpuscular Hemoglobin 31.8 pg (28.0-32.0); Mean Corpuscular Hgb Conc. 34.1 g/dL (32.0-36.0); Mean Corpuscular Volume 93.3 fL (80.0-100.0); Monocytes # (auto) 0.3 10 ^3/uL (0-1.3); Monocytes % (auto) 4.6 % (0.0-12.0); Neutrophils # (auto) 4.9 10 ^3/uL (1.6-8.6); Neutrophils % (auto) 73.4 % (37.0-80.0); Red Blood Cells 3.46 10^6/uL (4.0-5.20); White Blood Cell 6.7 10^3/uL (4.4-10.8)
[2024-02-24 07:43] LABS: Chloride 108 mmol/L (98-107); Potassium 3.2 mmol/L (3.5-5.1); Sodium 144 mmol/L (136-145)
[2024-02-24 07:44] LABS: Anion Gap 5 (5-15); Carbon Dioxide 31 mmol/L (20-30)
[2024-02-24 07:45] LABS: Calcium 8.6 mg/dL (8.7-10.4)
[2024-02-24 07:49] LABS: Glucose 96 mg/dL (74-106)
[2024-02-24 07:50] LABS: BUN/Creatinine Ratio 19.4 (10.0-20.0); Blood Urea Nitrogen 12 mg/dL (9-23); Magnesium 1.6 mg/dL (1.6-2.6)
[2024-02-24] MEDS: POTASSIUM CHL 20 Meq TABLET PO ONE (15:07)
[2024-02-24] MEDS: MAGNESIUM OXIDE 400 MG TAB PO SCH (21:41)
[2024-02-25] VITALS (7 sets, daily range): BP systolic 124–164; BP diastolic 63–90; PULSE 70–80; RESP 17–18; TEMP 97.5–98.7; O2SAT 91–99
[2024-02-25] MEDS: POTASSIUM CHL 10 Meq TABLET PO ONE (11:30)
[2024-02-26 00:52] VITALS: BP 124/86; PULSE 74; RESP 18; TEMP 97.7; O2SAT 94
[2024-02-26 05:00] VITALS: BP 156/81; PULSE 70; RESP 17; TEMP 97.6; O2SAT 97
[2024-02-26] MEDS: DOCUSATE SOD 100 MG CAP PO PRN (05:05)
[2024-02-26 08:00] VITALS: BP 152/84; PULSE 73; PULSE 78; RESP 16; RESP 17; TEMP 98.1; O2SAT 92; O2SAT 95
[2024-02-26] MEDS: POTASSIUM CHL 10 Meq TABLET PO SCH (08:37)
[2024-02-26 17:11] VITALS: BP 160/75; PULSE 81; RESP 16; O2SAT 93
[2024-02-26 20:50] VITALS: BP 132/66; PULSE 87; RESP 18; TEMP 97.6; O2SAT 96
[2024-02-26] MEDS: risperiDONE 1 MG TAB PO SCH (22:00)
[2024-02-27 01:00] VITALS: BP_SYST 132; BP_SYST 161; BP_DIAS 62; BP_DIAS 83; PULSE 82; PULSE 87; RESP 17; RESP 19; TEMP 97.5; O2SAT 95; O2SAT 96
[2024-02-27] MEDS: hydrALAZINE HCL 20 MG/ML VL IV PRN (01:35)
[2024-02-27 04:49] VITALS: BP 138/72; PULSE 94; RESP 18; O2SAT 98
[2024-02-27 05:57] LABS: Basophils # (auto) 0 10 ^3/uL (0-0.2); Basophils % (auto) 0.3 % (0.0-2.0); Eosinophils # (auto) 0.1 10 ^3/uL (0-0.8); Eosinophils % (auto) 1.9 % (0.0-7.0); Hematocrit 36.3 % (36.0-46.0); Hemoglobin 12.1 g/dL (12.2-16.2); Lymphocytes # (auto) 1.5 10 ^3/uL (0.4-5.4); Lymphocytes % (auto) 20.2 % (10.0-50.0); Mean Corpuscular Hemoglobin 31.3 pg (28.0-32.0); Mean Corpuscular Hgb Conc. 33.3 g/dL (32.0-36.0); Mean Corpuscular Volume 94.1 fL (80.0-100.0); Monocytes # (auto) 0.6 10 ^3/uL (0-1.3); Monocytes % (auto) 7.4 % (0.0-12.0); Neutrophils # (auto) 5.3 10 ^3/uL (1.6-8.6); Neutrophils % (auto) 70.2 % (37.0-80.0); Nucleated Red Blood Cells % 0.2 %; Red Blood Cells 3.86 10^6/uL (4.0-5.20); Red Cell Distribution Width 15.9 % (11.8-14.3); White Blood Cell 7.6 10^3/uL (4.4-10.8)
[2024-02-27 06:16] LABS: Albumin 3.5 g/dL (3.2-4.8); Alkaline Phosphatase 99 U/L (46-116); Anion Gap 10 (5-15); Aspartate Aminotransferase 12 U/L (13-40); BUN/Creatinine Ratio 16.9 (10.0-20.0); Blood Urea Nitrogen 10 mg/dL (9-23); Calcium 8.9 mg/dL (8.7-10.4); Carbon Dioxide 26 mmol/L (20-30); Chloride 105 mmol/L (98-107); Glucose 90 mg/dL (74-106); Magnesium 2.1 mg/dL (1.6-2.6); Sodium 141 mmol/L (136-145)
[2024-02-27 06:17] LABS: Alanine Aminotransferase < 9 U/L (7-40); Bilirubin, Total 0.8 mg/dL (0.2-1.0); Total Protein 6.1 g/dL (5.7-8.2)
[2024-02-27 08:00] VITALS: PULSE 74; RESP 16; O2SAT 95
[2024-02-27 09:00] VITALS: BP 117/74; PULSE 78; RESP 16; TEMP 97.8; O2SAT 95
[2024-02-27 13:00] VITALS: BP 122/70; PULSE 80; RESP 16; TEMP 98.1; O2SAT 98
[2024-02-27 17:00] VITALS: BP 134/82; PULSE 78; RESP 16; TEMP 98.2; O2SAT 98
[2024-02-28 01:00] VITALS: BP 132/62; PULSE 82; RESP 17; TEMP 97.5; O2SAT 95
[2024-02-28 05:00] VITALS: BP 154/81; PULSE 75; RESP 18; TEMP 97.5; O2SAT 96
[2024-02-28 06:25] VITALS: BP 120/74; PULSE 78
[2024-02-28 08:00] VITALS: PULSE 80; RESP 18; O2SAT 95
[2024-02-28 09:00] VITALS: BP 116/60; PULSE 81; RESP 18; TEMP 97.5; O2SAT 94
[2024-02-28 11:16] LABS: Urine Amorphous Crystal FEW /hpf (None Seen); Urine Bacteria FEW /hpf (None Seen); Urine Blood 2+ /uL (Negative); Urine Clarity Turbid (Clear); Urine Color Colorless (Yellow); Urine Mucus FEW (None Seen); Urine Protein, UAD TRACE (Negative); Urine Specific Gravity 1.009 (1.001-1.035); Urine Urobilinogen Normal (Negative); Urine WBC 49 /hpf (0 - 5)
[2024-02-28 13:00] VITALS: BP 129/75; PULSE 80; RESP 18; TEMP 97.8; O2SAT 96
[2024-02-28] MEDS: cefTRIAXone 1GM/50ML D5W 50 ML IV ONE (13:05)
[2024-02-28] MEDS ORDERED: CARBIDOPA W LEVODOPA 25/100mg TABLET PO SCH (14:00)
[2024-02-28] MEDS ORDERED: MIDODRINE HCL 10 MG TAB PO SCH (14:00)
[2024-02-28] MEDS ORDERED: GABAPENTIN 300 MG CAP PO SCH (22:00)
[2024-02-28] MEDS ORDERED: ATORVASTATIN 20 MG TAB PO SCH (22:00)
[2024-02-29] MEDS ORDERED: LEVOTHYROXINE SODIUM 25 MCG TAB PO SCH (07:00)
[2024-02-29] MEDS ORDERED: cefTRIAXone 1GM/50ML D5W 50 ML IV SCH (09:00)
[2024-02-29] MEDS ORDERED: VENLAFAXINE HCL 37.5mg XR cap PO SCH (10:00)
== END 2024-02-28 15:12 | DRG 565 ==
LOC: EDBD 12:55 → ER 12:55 → OVERFLOW 19:36 → CENTRAL 02-23 12:00 → WEST WING 02-26 06:05
PROVIDERS: ADMIT Internal Medicine; ATTEND Internal Medicine Geriatric Medicine
DX: S42.191A Fracture of other part of scapula, right shoulder, initial encounter for closed fracture (principal); M48.54XA Collapsed vertebra, not elsewhere classified, thoracic region, initial encounter for fracture; S42.031A Displaced fracture of lateral end of right clavicle, initial encounter for closed fracture; E03.9 Hypothyroidism, unspecified; E78.5 Hyperlipidemia, unspecified; E87.6 Hypokalemia; G20.A1 Parkinson's disease without dyskinesia, without mention of fluctuations; F02.80 Dementia in other diseases classified elsewhere, unspecified severity, without behavioral disturbance, psychotic disturbance, mood disturbance, and anxiety; S40.011A Contusion of right shoulder, initial encounter; I95.9 Hypotension, unspecified; Z87.440 Personal history of urinary (tract) infections; W18.39XA Other fall on same level, initial encounter; Y92.098 Other place in other non-institutional residence as the place of occurrence of the external cause; Y93.89 Activity, other specified; Y99.8 Other external cause status
CPT/HCPCS: 36415; 70450; 71250; 72125; 73030; 74176; 80048; 80053; 81001; 83735; 85025; 87086; 97110; 97116; 97163; 97530; G0378; J2405

== ENCOUNTER 2024-06-06 18:48 | Emergency (ER) | payer MEDICARE, OTHER ==
[~2024-06-06] VITALS: Ht 154.9 cm; Wt 64.0 kg
[~2024-06-06 18:48] MED LIST changes: -BACL10TA PO; -BUSP5TAB51 PO; -CITA10TA5 PO; -PRIM50TA27 PO; -TRAZ-181 PO
--- NOTE | 2024-06-06 19:29 | ED.PDOC ---
History of Present Illness HPI Comments HPI: HPI: Poor Historian. Patient is Full Code. 84-year-old female brought in by EMS from intermediate presents with a chief complaint of right elbow abrasion s/p mechanical fall earlier today. Patient is being brought to the ER from a SNF and had a mechanical slip and fall there. Patient mentions that she was trying to be careful walking, "but I just slipped". Patient reports that she hit her head on the floor, but denies losing consciousness. Patient has a small minimal skin abrasion on the lateral aspect of her right elbow. Patient is alert and oriented currently. Patient denies any acute pain or distress. Patient says that she is not allowed to walk but she took a chance anyways. PMHx: Parkinson's with Dyskinesia, UTIs, HLD, Anxiety-Unspecified Diagnosis, Dementia with Agitation, Multiple Rib Fx, Scapula Fx, Right Shoulder Fx, Right Clavicle Fx, Hypothyroidism, Depression, Restless/Agitation, GERD, Fall History, Gait Abnormality, Dysphasia PSHx: Right Hip Replacement, Appendectomy Allergies: None Initial Vital Signs: BP: 144/76 HR: 74 Temp: 98.6F SpO2: 97% RR: 16 REVIEW OF SYSTEMS: CONSTITUTIONAL: Denies acute: fever, diaphoresis, chills, generalized weakness. HEAD: Denies acute: headache, photophobia Eyes: Denies acute: Double vision, vision loss, eye pain, eye discharge. EARS: Denies acute: tinnitus, hearing loss, ear discharge, ear pain, THROAT: Denies acute: sore throat, swelling, difficulty swallowing , pain with swallowing, change in voice. NECK: Denies acute: neck pain, neck swelling, stiff neck. HEART: Denies acute : chest pain, palpitations, LUNGS: Denies acute: SOB, wheezing, cough, hemoptysis ABDOMEN: Denies acute: abdominal pain, Nausea, Vomiting, diarrhea, melena , hematemesis, hematochezia SKIN: Denies acute: rash, redness, lesions, itchiness. EXTREMITIES: Denies acute: calf pain, numbness, tingling, weakness, denies pain in extremity. Denies acute: Low back pain. Neuro: Denies acute: focal neurological deficit, motor or sensory focal neurological deficit, tremors, seizure like activity, confusion, dizziness, change in mental status, loss of bowel or bladder function, cauda equina like symptoms. : Denies acute: dysuria, hematuria, flank pain, increase in urinary frequency. PSYCH: Denies acute: hallucination, suicidal ideation, homicidal ideation. FEMALE: Denies acute: abnormal vaginal bleeding, foul odor, unusual discharge. PHYSICAL EXAM: General: no acute distress, awake and alert. Head: normocephalic, atraumatic. Neck: supple, trachea is midline, no swelling. Cervical spine: Palpation of the posterior midline of the cervical spine reveals no focal swelling, erythema, focal tenderness to palpation. Patient has normal range of motion. Throat: Normal phonation. Eyes:, no erythema, no purulent discharge, no proptosis, no icterus. Heart: regular rate, regular rhythm, no significant murmur appreciated. Lungs: no apparent respiratory distress, Able to speak in full sentences. No wheezing, no rhonchi, no crackles. No stridors Clear to auscultation bilaterally. Abdomen: non tender to palpation, non distended, soft, no guarding, no rebound, + bowel sounds. Neuro: Awake, Alert, oriented to name, self, situation, follows commands GCS=15. Speech is normal. Skin: no petechia, no purpura, no cyanosis, non-pale, not jaundice. Lower extremities: --no - Pitting edema no deformity, no focal swelling, no calf TTP. Evaluation of the right elbow reveals no erythema, no deformity, no swelling, normal range of motion. Patient is neurovascularly intact in the affected extremity. Radial pulses palpable. Makes eye contact. moves all four extremities. Face: no apparent facial droop. . No nuchal rigidity, Kernig's sign, Brudzinski's sign, no meningeal signs. Chief Complaint: Fall Injury Time Seen by MD: 19:30 Primary Care Provider: UNKNOWN Reviewed Notes: Nurses Notes, Medications, Allergies Allergies: Coded Allergies: No Known Drug Allergy (Verified Allergy, Unknown, 02/28/20) Home Meds Active Scripts Cephalexin (KEFLEX CAPSULE) 250 Mg Cp, 1 CAP PO TID, #21 CAP Prov:YARED MCINTYRE MD 12/08/23 Reported Medications Levodopa W/Carbidopa (Carbidopa/Levodopa) 1 Tab Tab, 1 TAB PO TID 12/07/23 Venlafaxine Hcl (Venlafaxine Hcl Er) 37.5 Mg Cap, 1 CAP PO DAILY 12/07/23 Oxycodone W/ Acetaminophen (Percocet 5/325MG) 1 Tab Tb, 1 TAB PO BID PRN for PAIN SCALE 7 THRU 10, TAB 10/31/23 Atorvastatin Calcium (ATORVASTATIN CALCIUM) 20 Mg Tab, 1 TAB PO HS, #30 TAB 5 Refills 09/01/23 Gabapentin (Gabapentin) 300 Mg Cap, 300 MG PO BID for 30 Days, MG 09/01/23 Levothyroxine Sodium (Levothyroxine Sodium) 25 Mcg Tab, 25 MCG PO QAM, TAB 09/01/23 Midodrine HCl (Midodrine HCl) 10 Mg Tab, 10 MG PO TID, TAB 02/28/20 Information Source: Patient, Emergency Med Personnel, PMD Records Mode of Arrival: EMS Past Medical History PAST MEDICAL HISTORY: Dementia, High Lipids, Hypotension, [place], 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 Was a procedure done?: No Differential Dx Considerations may include: Dislocation, fracture, contusion, bleeding, spinal cord injury, X-Ray, Labs, Meds, VS Vital Signs Date Time Temp Pulse Resp B/P (MAP) Pulse Ox O2 Delivery O2 Flow Rate FiO2 06/06/24 19:55 71 06/06/24 19:08 98.6 74 16 144/76 (98) 97 Lab Test 06/06/24 20:50 06/06/24 20:28 06/06/24 19:37 Range/Units Troponin I High Sensitivity Pending 3 L </=34 ng/L Urine Color Yellow Yellow Urine Clarity Clear Clear Urine pH 6.0 5.0-9.0 Urine Specific Addison 1.023 1.001-1.035 Urine Protein Negative Negative Urine Ketones Negative Negative Urine Blood Negative Negative /uL Urine Nitrite Negative Negative Urine Bilirubin Negative Negative Urine Urobilinogen Normal Negative mg/dL Urine Leukocyte Esterase Negative Negative /uL Urine RBC 2 0 - 4 /hpf Urine WBC 2 0 - 5 /hpf Urine Squamous Epithelial Cells Few <5 /hpf Urine Bacteria None seen None Seen /hpf Urine Glucose Normal Normal mg/dL White Blood Count 6.2 4.4-10.8 10^3/uL Red Blood Count 4.48 4.0-5.20 10^6/uL Hemoglobin 14.0 12.2-16.2 g/dL Hematocrit 42.0 36.0-46.0 % Mean Corpuscular Volume 93.8 80.0-100.0 fL Mean Corpuscular Hemoglobin 31.4 28.0-32.0 pg Mean Corpuscular Hemoglobin Concent 33.4 32.0-36.0 g/dL Red Cell Distribution Width 14.9 H 11.8-14.3 % Platelet Count 246 140-450 10^3/uL Mean Platelet Volume 8.9 6.9-10.8 fL Neutrophils (%) (Auto) 58.4 37.0-80.0 % Lymphocytes (%) (Auto) 31.3 10.0-50.0 % Monocytes (%) (Auto) 7.9 0.0-12.0 % Eosinophils (%) (Auto) 2.1 0.0-7.0 % Basophils (%) (Auto) 0.3 0.0-2.0 % Neutrophils # (Auto) 3.6 1.6-8.6 10 ^3/uL Lymphocytes # (Auto) 1.9 0.4-5.4 10 ^3/uL Monocytes # (Auto) 0.5 0-1.3 10 ^3/uL Eosinophils # (Auto) 0.1 0-0.8 10 ^3/uL Basophils # (Auto) 0 0-0.2 10 ^3/uL Nucleated Red Blood Cells 0.1 % Sodium Level 140 136-145 mmol/L Potassium Level 5.1 3.5-5.1 mmol/L Chloride Level 105 98-107 mmol/L Carbon Dioxide Level 32 H 20-31 mmol/L Anion Gap 3 L 5-15 Blood Urea Nitrogen 35 H 9-23 mg/dL Creatinine 0.81 0.550-1.02 mg/dL Glomerular Filtration Rate Calc 72 >90 mL/min BUN/Creatinine Ratio 43.2 H 10.0-20.0 Serum Glucose 98 74-106 mg/dL Lactic Acid Level 1.4 0.4-2.0 mmol/L Calcium Level 10.5 H 8.7-10.4 mg/dL Total Bilirubin 0.3 0.2-1.0 mg/dL Aspartate Amino Transferase (AST) 13 13-40 U/L Alanine Aminotransferase (ALT) 17 7-40 U/L Alkaline Phosphatase 106 46-116 U/L Total Protein 7.8 5.7-8.2 g/dL Albumin 4.6 3.2-4.8 g/dL [facility] [id number] [place] [id number] Ph: [phone] DIAGNOSTIC IMAGING Diagnostic Imaging Report : [id number] Signed PATIENT: MARIE BRANDT ACCT: [id number] UNIT: [id number] : 1940 LOC: ER ROOM / BED: / AGE / SEX: 84 / F ADM STATUS: REG ER SERVICE 00 ORDERING PHYSICIAN: GASTON HERBERT DO PROCEDURE(s): CS2 - CERVICAL WITHOUT CONTRAST REASON: fall ORDER NUMBER(s): [id number], ACCESSION NUMBER(s): [id number] EXAM: CT CERVICAL WITHOUT CONTRAST INDICATION: fall EXAM DATE: 06/06/2024 07:18 PM COMPARISON: CT HEAD WITHOUT CONTRAST on DOS: 02/22/24, CT CERVICAL WITHOUT CONTRAST on DOS: 02/22/24, CT HEAD WITHOUT CONTRAST on DOS: 12/06/23 TECHNIQUE: Multiple axial CT images of the cervical spine were obtained using bone algorithm. Axial and coronal reformatting was done. Bone and soft tissue windows were reviewed. Radiation Dose Information: CT Dose: CTDI volume is 7.74 mGy. Dose-length product is 196.05 mGy*cm Findings: There is no evidence of an acute fracture or spondylolisthesis. The vertebral body heights are well-maintained. The craniocervical junction and dens are intact. No neuroforaminal narrowing. No spinal canal stenosis. There is a normal cervical lordosis. Multinodular thyroid gland. The lung apices demonstrate no acute abnormality. The paraspinal and neck soft tissues appear within normal limits. C2-3: Normal C3-4: Severe degenerative disc disease. C4-5: Moderate degenerative disc disease. C5-6: Moderate degenerative disc disease. C6-7: Normal C7-T1: Normal Impression: 1. No evidence of an acute fracture. 2. Mild degenerative changes with multilevel moderate to severe degenerative disc disease. 3. Multinodular thyroid gland. Consider a nonemergent, outpatient thyroid ultrasound as clinically indicated. ATED BY: JULIANNA JACKSON DO DICTATED DATE/TIME: 06/06/241947 SIGNED BY: JULIANNA JACKSON DO SIGNED DATE/TIME: 06/06/241947 [place] [address] Ph: [phone] DIAGNOSTIC IMAGING Diagnostic Imaging Report : [id number] Signed PATIENT: MARIE BRANDT ACCT: [id number] UNIT: [id number] : 1940 LOC: ER ROOM / BED: / AGE / SEX: 84 / F ADM STATUS: REG ER SERVICE 00 ORDERING PHYSICIAN: GASTON HERBERT DO PROCEDURE(s): RELB3 - R ELBOW 3 VIEW XRAY REASON: fall ORDER NUMBER(s): [id number], ACCESSION NUMBER(s): [id number] EXAM: XY R ELBOW 3 VIEW XRAY CLINICAL HISTORY: fall COMPARISON: XY R SHOULDER 2+ VIEW XRAY on DOS: 02/22/24 TECHNIQUE: XY R ELBOW 3 VIEW XRAY Findings/Impression: 3 views of the right elbow. There is no evidence of an acute fracture, dislocation, blastic, or lytic lesions. No radiopaque foreign bodies. Osteopenia. No joint effusion or superficial soft tissue abnormalities. ATED BY: JULIANNA JACKSON DO DICTATED DATE/TIME: 06/06/241930 SIGNED BY: JULIANNA JACKSON DO SIGNED DATE/TIME: 06/06/241930 [place] [address] Ph: [phone] DIAGNOSTIC IMAGING Diagnostic Imaging Report : [id number] Signed PATIENT: MARIE BRANDT ACCT: [id number] UNIT: [id number] : 1940 LOC: ER ROOM / BED: / AGE / SEX: 84 / F ADM STATUS: REG ER SERVICE 00 ORDERING PHYSICIAN: GASTON HERBERT DO PROCEDURE(s): HWOCT - HEAD WITHOUT CONTRAST REASON: fall ORDER NUMBER(s): [id number], ACCESSION NUMBER(s): [id number] CT BRAIN WITHOUT CONTRAST HISTORY: fall TECHNIQUE: Axial scans were obtained from the skull base through the vertex without contrast. Sagittal and coronal reformats were generated. One or more of the following radiation dose reduction techniques were used for this examination: automated exposure control, adjustment of the mA and/or kV according to patient size, use of iterative reconstruction technique. COMPARISON: CT HEAD WITHOUT CONTRAST on DOS: 02/22/24 FINDINGS: Mild to moderate generalized cerebral atrophy. No acute intracranial hemorrhage or evidence of large vessel territorial infarction is identified at this time. No midline shift. The basilar cisterns are patent. Focal calcification again noted in the superior left parietal lobe. The visualized paranasal sinuses and mastoid air cells are clear. No grossly displaced calvarial fracture is identified. IMPRESSION: No acute intracranial findings. ATED BY: LINCOLN DOTY MD DICTATED DATE/TIME: 06/06/241947 SIGNED BY: LINCOLN DOTY MD SIGNED DATE/TIME: 06/06/241947 Time of 1ST Reevaluation: 20:00 Reevaluation 1ST: Unchanged Patient Education/Counseling: Diagnosis, Treatment Family Education/Counseling: No Family Present Comments Patient presented with the above HPI.---fall/head injury---workup was initiated. patient was found with the above mentioned diagnosis. Patient ED course and VS have been stabilized. Patient has been reassessed in the ED and remained in a stable condition. Pertinent incidental findings were discussed with the patient and/or family. Patient/family voices understanding and is agreeable with plan. Patient has been observed in the ED adequate length of time to insure improvement/stability. patient was discharged home in a stable condition. All the reports of any imaging studies that were ordered by myself were reviewed by myself. Departure 1 Departure Time of Disposition: 20:08 Impression: Primary Impression: History of unsteady gait Additional Impressions: Closed head injury Abrasion of right elbow Abnormal finding on CT scan Multinodular thyroid Disposition: HOME / SELF CARE / HOMELESS Condition: Stable Additional Instructions: Additional discharge instructions: You MUST follow-up with your primary care/family doctor in 1 to 2 days. If you are unable to see your primary care/family doctor, please return to our emergency room for re-assessment and re-evaluation in 1 to 2 days. Return to the emergency room here in our facility or to the nearest ER [facility] if your symptoms change or worsen. CONSULTATIONS: you MUST Follow-up for consultation as soon as possible with: -ENT doctor regarding the incidental finding of the thyroid gland. Please call for appointment You MUST call the consultants office yourself to make an appointment. You may n eed to arrange that through your insurance and/or your primary/family doctor. If you are unable to see the financial management consultant in 1 to 2 days, you must return to our emergency room (or any other ER of your choice) for re-assessment and re- evaluation. Adequate fluid hydration. Fall precautions. Ambulate with the assistance at all times. Below is a copy of your radiological report for follow up: [place] [address] Ph: [phone] DIAGNOSTIC IMAGING Diagnostic Imaging Report : [id number] Signed PATIENT: MARIE BRANDT ACCT: [id number] UNIT: [id number] : 1940 LOC: ER ROOM / BED: / AGE / SEX: 84 / F ADM STATUS: REG ER SERVICE 190 ORDERING PHYSICIAN: GASTON HERBERT DO PROCEDURE(s): CS2 - CERVICAL WITHOUT CONTRAST REASON: fall ORDER NUMBER(s): [id number], ACCESSION NUMBER(s): [id number] EXAM: CT CERVICAL WITHOUT CONTRAST INDICATION: fall EXAM DATE: 06/06/2024 07:18 PM COMPARISON: CT HEAD WITHOUT CONTRAST on DOS: 02/22/24, CT CERVICAL WITHOUT CONTRAST on DOS: 02/22/24, CT HEAD WITHOUT CONTRAST on DOS: 12/06/23 TECHNIQUE: Multiple axial CT images of the cervical spine were obtained using bone algorithm. Axial and coronal reformatting was done. Bone and soft tissue windows were reviewed. Radiation Dose Information: CT Dose: CTDI volume is 7.74 mGy. Dose-length product is 196.05 mGy*cm Findings: There is no evidence of an acute fracture or spondylolisthesis. The vertebral body heights are well-maintained. The craniocervical junction and dens are intact. No neuroforaminal narrowing. No spinal canal stenosis. There is a normal cervical lordosis. Multinodular thyroid gland. The lung apices demonstrate no acute abnormality. The paraspinal and neck soft tissues appear within normal limits. C2-3: Normal C3-4: Severe degenerative disc disease. C4-5: Moderate degenerative disc disease. C5-6: Moderate degenerative disc disease. C6-7: Normal C7-T1: Normal Impression: 1. No evidence of an acute fracture. 2. Mild degenerative changes with multilevel moderate to severe degenerative disc disease. 3. Multinodular thyroid gland. Consider a nonemergent, outpatient thyroid ultrasound as clinically indicated. ATED BY: JULIANNA JACKSON DO DICTATED DATE/TIME: 06/06/241947 SIGNED BY: JULIANNA JACKSON DO SIGNED DATE/TIME: 06/06/241947 Discharged With: Self Critical Care Note Critical Care Time?: No I personally scribed for GASTON HERBERT DO ([email or web address]) on 06/06/24 at 19:28. Electronically submitted by Radhames Mercer ([email or web address]). I personally scribed for GASTON HERBERT DO ([email or web address]) on 06/06/24 at 19:36. Electronically submitted by Radhames Mercer ([email or web address]). I personally scribed for GASTON HERBERT DO ([email or web address]) on 06/06/24 at 20:10. Electronically submitted by Radhames Mercer ([email or web address]). I personally scribed for GASTON HERBERT DO ([email or web address]) on 06/06/24 at 20:50. Electronically submitted by Radhames Mercer ([email or web address]). GASTON HERBERT DO Jun 06, 2024 19:28
--- NOTE | 2024-06-06 19:33 | DVH ---
EXAM: XY R ELBOW 3 VIEW XRAY CLINICAL HISTORY: fall COMPARISON: XY R SHOULDER 2+ VIEW XRAY on DOS: 02/22/24 TECHNIQUE: XY R ELBOW 3 VIEW XRAY Findings/Impression: 3 views of the right elbow. There is no evidence of an acute fracture, dislocation, blastic, or lytic lesions. No radiopaque foreign bodies. Osteopenia. No joint effusion or superficial soft tissue abnormalities.
--- NOTE | 2024-06-06 19:50 | DVH ---
EXAM: CT CERVICAL WITHOUT CONTRAST INDICATION: fall EXAM DATE: 06/06/2024 07:18 PM COMPARISON: CT HEAD WITHOUT CONTRAST on DOS: 02/22/24, CT CERVICAL WITHOUT CONTRAST on DOS: 02/22/24, C T HEAD WITHOUT CONTRAST on DOS: 12/06/23 TECHNIQUE: Multiple axial CT images of the cervical spine were obtained using bone algorithm. Axial a nd coronal reformatting was done. Bone and soft tissue windows were reviewed. Radiation Dose Information: CT Dose: CTDI volume is 7.74 mGy. Dose-length product is 196.05 mGy*cm Findings: There is no evidence of an acute fracture or spondylolisthesis. The vertebral body heights are well-m aintained. The craniocervical junction and dens are intact. No neuroforaminal narrowing. No spinal canal stenosis. There is a normal cervical lordosis. Multinodular thyroid gland. The lung apices demonstrate no acute abnormality. The paraspinal and neck soft tissues appear within normal limits. C2-3: Normal C3-4: Severe degenerative disc disease. C4-5: Moderate degenerative disc disease. C5-6: Moderate degenerative disc disease. C6-7: Normal C7-T1: Normal Impression: 1. No evidence of an acute fracture. 2. Mild degenerative changes with multilevel moderate to severe degenerative disc disease. 3. Multinodular thyroid gland. Consider a nonemergent, outpatient thyroid ultrasound as clinically in dicated.
--- NOTE | 2024-06-06 19:51 | DVH ---
CT BRAIN WITHOUT CONTRAST HISTORY: fall TECHNIQUE: Axial scans were obtained from the skull base through the vertex without contrast. Sagitta l and coronal reformats were generated. One or more of the following radiation dose reduction techniq ues were used for this examination: automated exposure control, adjustment of the mA and/or kV accord ing to patient size, use of iterative reconstruction technique. COMPARISON: CT HEAD WITHOUT CONTRAST on DOS: 02/22/24 FINDINGS: Mild to moderate generalized cerebral atrophy. No acute intracranial hemorrhage or evidence of large vessel territorial infarction is identified at this time. No midline shift. The basilar cisterns are patent. Focal calcification again noted in the superior left parietal lobe. The visualized paranasal sinuses and mastoid air cells are clear. No grossly displaced calvarial fra cture is identified. IMPRESSION: No acute intracranial findings.
[2024-06-06 20:29] LABS: Urine Bacteria None Seen /hpf (None Seen)
[2024-06-06 20:29] LABS: Basophils # (auto) 0 10 ^3/uL (0-0.2); Basophils % (auto) 0.3 % (0.0-2.0); Eosinophils # (auto) 0.1 10 ^3/uL (0-0.8); Eosinophils % (auto) 2.1 % (0.0-7.0); Lymphocytes # (auto) 1.9 10 ^3/uL (0.4-5.4); Lymphocytes % (auto) 31.3 % (10.0-50.0); Mean Corpuscular Hemoglobin 31.4 pg (28.0-32.0); Mean Corpuscular Hgb Conc. 33.4 g/dL (32.0-36.0); Mean Corpuscular Volume 93.8 fL (80.0-100.0); Monocytes # (auto) 0.5 10 ^3/uL (0-1.3); Monocytes % (auto) 7.9 % (0.0-12.0); Neutrophils # (auto) 3.6 10 ^3/uL (1.6-8.6); Neutrophils % (auto) 58.4 % (37.0-80.0); Nucleated Red Blood Cells % 0.1 %; Platelet Count (auto) 246 10^3/uL (140-450); Red Blood Cells 4.48 10^6/uL (4.0-5.20); Red Cell Distribution Width 14.9 % (11.8-14.3); White Blood Cell 6.2 10^3/uL (4.4-10.8)
[2024-06-06 20:30] LABS: Alanine Aminotransferase 17 U/L (7-40); Albumin 4.6 g/dL (3.2-4.8); Alkaline Phosphatase 106 U/L (46-116); Anion Gap 3 (5-15); Aspartate Aminotransferase 13 U/L (13-40); BUN/Creatinine Ratio 43.2 (10.0-20.0); Bilirubin, Total 0.3 mg/dL (0.2-1.0); Blood Urea Nitrogen 35 mg/dL (9-23); Calcium 10.5 mg/dL (8.7-10.4); Carbon Dioxide 32 mmol/L (20-31); Chloride 105 mmol/L (98-107); Glucose 98 mg/dL (74-106); Potassium 5.1 mmol/L (3.5-5.1); Sodium 140 mmol/L (136-145); Total Protein 7.8 g/dL (5.7-8.2)
[2024-06-06 20:42] LABS: Urine Blood Negative /uL (Negative); Urine Clarity Clear (Clear); Urine Color Yellow (Yellow); Urine Protein, UAD Negative (Negative); Urine Specific Gravity 1.023 (1.001-1.035); Urine Urobilinogen Normal (Negative); Urine WBC 2 /hpf (0 - 5)
--- NOTE | 2024-06-06 21:06 | ECG ---
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
[2024-06-07 02:43] VITALS: PULSE 86; RESP 12; O2SAT 98
[2024-06-07 07:30] VITALS: PULSE 88; RESP 12; TEMP 98.4; O2SAT 96
[2024-06-07 11:00] VITALS: BP 129/61; PULSE 83; RESP 15; O2SAT 97
== END 2024-06-06 21:06 ==
LOC: EDBD 18:48 → ER 18:48
DX: S50.311A Abrasion of right elbow, initial encounter (principal); S09.8XXA Other specified injuries of head, initial encounter; E04.2 Nontoxic multinodular goiter; I10 Essential (primary) hypertension; E03.9 Hypothyroidism, unspecified; E78.5 Hyperlipidemia, unspecified; F03.90 Unspecified dementia, unspecified severity, without behavioral disturbance, psychotic disturbance, mood disturbance, and anxiety; Z90.49 Acquired absence of other specified parts of digestive tract; Z79.899 Other long term (current) drug therapy; W01.0XXA Fall on same level from slipping, tripping and stumbling without subsequent striking against object, initial encounter; Y93.89 Activity, other specified; Y92.89 Other specified places as the place of occurrence of the external cause; Y99.8 Other external cause status
CPT/HCPCS: 36415; 70450; 72125; 73080; 80053; 81001; 83605; 84484; 85025; 93005

== ENCOUNTER 2024-09-27 06:37 | Inpatient (IN) | payer MEDICARE, MEDICAID ==
[~2024-09-27] VITALS: Ht 157.5 cm; Wt 43.6 kg
[2024-09-27] MEDS: HYDROcodone-ACET 5/325MG TAB PO ONE (07:23)
--- NOTE | 2024-09-27 07:25 | ED.PDOC ---
History of Present Illness HPI Comments 84 y/o F, BIBA with PMHX of HLD, HTN, Dementia, and MT presents to the ED for CC of back pain. Per EMS, patient has been experiencing back pain [id number]. Patient comments on, getting out of bed and twisting her body which resulted in back pain. Patient endorse on, pain worsening with movement. Patient is able to ambulate with walker. Patient denies musculoskeletal injury, head injury, recent fall, LOC, fatigue, or weakness. Patient is poor historian and no other symptoms or PMHX obtainable at this time. Chief Complaint: Back Pain Time Seen by MD: 07:10 Primary Care Provider: n/a Reviewed Notes: Nurses Notes, Art Instructor Notes, Medications, Allergies Allergies: Coded Allergies: No Known Drug Allergy (Verified Allergy, Unknown, 02/28/20) Home Meds Active Scripts Cephalexin (KEFLEX CAPSULE) 250 Mg Cp, 1 CAP PO TID, #21 CAP Prov:YARED MCINTYRE MD 12/08/23 Reported Medications Levodopa W/Carbidopa (Carbidopa/Levodopa) 1 Tab Tab, 1 TAB PO TID 12/07/23 Venlafaxine Hcl (Venlafaxine Hcl Er) 37.5 Mg Cap, 1 CAP PO DAILY 12/07/23 Oxycodone W/ Acetaminophen (Percocet 5/325MG) 1 Tab Tb, 1 TAB PO BID PRN for PAIN SCALE 7 THRU 10, TAB 10/31/23 Atorvastatin Calcium (ATORVASTATIN CALCIUM) 20 Mg Tab, 1 TAB PO HS, #30 TAB 5 Refills 09/01/23 Gabapentin (Gabapentin) 300 Mg Cap, 300 MG PO BID for 30 Days, MG 09/01/23 Levothyroxine Sodium (Levothyroxine Sodium) 25 Mcg Tab, 25 MCG PO QAM, TAB 09/01/23 Midodrine HCl (Midodrine HCl) 10 Mg Tab, 10 MG PO TID, TAB 02/28/20 Information Source: Patient, Emergency Med Personnel Mode of Arrival: EMS Severity: Moderate Timing: Days Duration: Since onset Prehospital treatment: None Past Medical History PAST MEDICAL HISTORY: Dementia, High Lipids, Hypotension, MT, Thyroid Surgical History: Unobtainable 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 Hx Family History Family History: Reviewed,noncontributory to illness Social History Smoker: Non-Smoker Alcohol: Denies ETOH Use Drugs: Denies Drug Use Lives In: Home Constitutional: denies: chills, diaphoresis, fatigue, fever, malaise, sweats, weakness, others EENTM: denies: blurred vision, double vision, ear bleeding, ear discharge, ear drainage, ear pain, ear ringing, eye pain, eye redness, hearing loss, mouth pain, mouth swelling, nasal discharge, nose bleeding, nose congestion, nose pain, photophobia, tearing, throat pain, throat swelling, voice changes, others Respiratory: denies: cough, hemoptysis, orthopnea, SOB at rest, shortness of breath, SOB with excertion, stridor, wheezing, others Cardiovascular: denies: chest pain, dizzy spells, diaphoresis, Dyspnea on exertion, edema, irregular heart beat, left arm pain, lightheadedness, palpitations, PND, syncope, others Gastrointestinal: denies: abdomen distended, abdominal pain, blood streaked bowels, constipated, diarrhea, dysphagia, difficulty swallowing, hematemesis, melena, nausea, poor appetite, poor fluid intake, rectal bleeding, rectal pain, vomiting, others Genitourinary: denies: abnormal vagina bleeding, burning, dyspareunia, dysuria, flank pain, frequency, hematuria, incontinence, pain, , vagina discharge, urgency, others Neurological: denies: dizziness, fainting, headache, left sided numbness, left sided weakness, numbness, paresthesia, pre-existing deficit, right sided numbness, right sided weakness, seizure, speech problems, tingling, tremors, weakness, others Musculoskeletal: reports: back pain; denies: gout, joint pain, joint swelling, muscle pain, muscle stiffness, neck pain, others Integumetry: denies: bruises, change in color, change in hair/nails, dryness, laceration, lesions, lumps, rash, wounds, others Allergic/Immunocompromised: denies: Difficulty Healing, Frequent Infections, Hives, Itching, others Hematologic/Lymphatic: denies: anemia, blood clots, easy bleeding, easy bruising, swollen glands, others Endocrine: denies: excessive hunger, excessive sweating, excessive thirst, excessive urination, flushing, intolerance to cold, intolerance to heat, unexplained weight gain, unexplained weight loss, others Psychiatric: denies: anxiety, bipolar disorder, depression, hopeless, panic disorder, schizophrenia, sleepless, suicidal, others All Other Systems: Reviewed and Negative Physical Exam General Appearance: Moderate Distress HEENT: Normal ENT Inspection, Pharynx Normal, TMs Normal Neck: Full Range of Motion, Non-Tender, Normal, Normal Inspection Respiratory: Chest Non-Tender, Lungs Clear, No Accessory Muscle Use, No Respiratory Distress, Normal Breath Sounds Cardiovascular: No Edema, No JVD, No Murmur, No Gallop, Normal Peripheral Pulses, Regular Rate/Rhythm Breast Exam: Deferred Gastrointestinal: No Organomegaly, Non Tender, No Pulsatile Mass, Normal Bowel Sounds, Soft Genitalia: Deferred Pelvic: Deferred Rectal: Deferred Extremities: Normal inspection Musculoskeletal : Apperance: Normal Neurologic: Disoriented Cerebellar Function: NOT DONE Reflexes: NOT DONE Skin: Normal Color Peripheral Pulses: 3+ Radial (R), 3+ Radial (L) Lymphatic: No Adenopathy Was a procedure done? Was a procedure done?: No Differential Dx Considerations may include: musculoskeletal pain Dementia X-Ray, Labs, Meds, VS Vital Signs Date Time Temp Pulse Resp B/P (MAP) Pulse Ox O2 Delivery O2 Flow Rate FiO2 09/27/24 07:28 97.9 85 16 115/58 (77) 95 97.9 09/27/24 07:28 85 16 95 Room Air* 0 21 09/27/24 06:38 98.6 91 16 144/86 (105) 96 09/27/24 06:37 86 Lab Test 09/27/24 07:31 09/27/24 07:17 09/27/24 07:03 Range/Units White Blood Count 7.1 4.4-10.8 10^3/uL Red Blood Count 4.59 4.0-5.20 10^6/uL Hemoglobin 14.3 12.2-16.2 g/dL Hematocrit 43.3 36.0-46.0 % Mean Corpuscular Volume 94.4 80.0-100.0 fL Mean Corpuscular Hemoglobin 31.2 28.0-32.0 pg Mean Corpuscular Hemoglobin Concent 33.1 32.0-36.0 g/dL Red Cell Distribution Width 15.3 H 11.8-14.3 % Platelet Count 276 140-450 10^3/uL Mean Platelet Volume 8.8 6.9-10.8 fL Neutrophils (%) (Auto) 82.8 H 37.0-80.0 % Lymphocytes (%) (Auto) 11.9 10.0-50.0 % Monocytes (%) (Auto) 5.0 0.0-12.0 % Eosinophils (%) (Auto) 0.1 0.0-7.0 % Basophils (%) (Auto) 0.2 0.0-2.0 % Neutrophils # (Auto) 5.9 1.6-8.6 10 ^3/uL Lymphocytes # (Auto) 0.8 0.4-5.4 10 ^3/uL Monocytes # (Auto) 0.4 0-1.3 10 ^3/uL Eosinophils # (Auto) 0 0-0.8 10 ^3/uL Basophils # (Auto) 0 0-0.2 10 ^3/uL Nucleated Red Blood Cells 0.3 % Sodium Level 139 136-145 mmol/L Potassium Level 3.2 L 3.5-5.1 mmol/L Chloride Level 106 98-107 mmol/L Carbon Dioxide Level 20 20-31 mmol/L Anion Gap 13 5-15 Blood Urea Nitrogen 16 9-23 mg/dL Creatinine 0.83 0.550-1.02 mg/dL Glomerular Filtration Rate Calc 70 >90 mL/min BUN/Creatinine Ratio 19.3 10.0-20.0 Serum Glucose 104 74-106 mg/dL Calcium Level 9.8 8.7-10.4 mg/dL Urine Color Yellow Yellow Urine Clarity Clear Clear Urine pH 5.5 5.0-9.0 Urine Specific [place] 1.037 H 1.001-1.035 Urine Protein 1+ H Negative Urine Ketones Negative Negative Urine Blood Negative Negative /uL Urine Nitrite Negative Negative Urine Bilirubin Negative Negative Urine Urobilinogen Normal Negative mg/dL Urine Leukocyte Esterase Negative Negative /uL Urine RBC 4 0 - 4 /hpf Urine Microscopic WBC 4 0-5 /HPF Urine Squamous Epithelial Cells Few <5 /hpf Urine Bacteria None seen None Seen /hpf Urine Mucus Few None Seen Urine Glucose Normal Normal mg/dL POC Glucose 99 70-106 mg/dl Current Medications Medications (Trade) Dose Ordered Sig/Judah Route Start Time Stop Time Status Last Admin Acetaminophen/ Hydrocodone Bitart ([place] 5/325MG Tab) 1 tab ONCE ONCE PO 09/27/24 07:15 09/27/24 07:16 DC 2/27/25 07:23 Patient slightly confused. Generalized symptoms. Possible degenerative disc disease. Vitals stable. Possibly dementia. WBC within normal limits. Neutrophils are elevated. Possible dehydration. Was given pain medication. Fluid challenge. She continues to have pain. Possibly will need MRI of the spine. Physiotherapy. Patient will need to be admitted with referral to histology specialist. Continue to monitor. Time of 1ST Reevaluation: 07:40 Reevaluation 1ST: Unchanged Patient Education/Counseling: Diagnosis, Treatment Family Education/Counseling: No Family Present Departure 1 Departure Time of Disposition: 09:28 Impression: Primary Impression: Metabolic encephalopathy Additional Impression: Degenerative disc disease Qualified Codes: M51.369 - Other intervertebral disc degeneration, lumbar region without mention of lumbar back pain or lower extremity pain Disposition: ADMITTED INPATIENT Admit to: Med Surg Condition: Guarded Critical Care Note Critical Care Time?: No Stability Stability form required: No Heart Score Heart Score: Heart Score Response (Comments) Value History Slightly Suspicious 0 EKG Normal 0 Age >65 2 Risk Factors 1 or 2 risk factors 1 Troponin N/A 0 Total 3 I personally scribed for MELANIE MONGE MD ([email or web address]) on 09/27/24 at 07:25. Electronically submitted by Luann Hanley ([email or web address]). I personally scribed for MELANIE MONGE MD ([email or web address]) on 09/27/24 at 07:26. Electronically submitted by Luann Hanley ([employer]). I personally scribed for MELANIE MONGE MD ([email or web address]) on 09/27/24 at 07:30. Electronically submitted by Luann Hanley ([employer]). MELANIE MONGE MD Sep 27, 2024 07:25
[2024-09-27 07:28] VITALS: PULSE 85; RESP 16; O2SAT 95
[2024-09-27 07:46] LABS: Basophils # (auto) 0 10 ^3/uL (0-0.2); Basophils % (auto) 0.2 % (0.0-2.0); Eosinophils # (auto) 0 10 ^3/uL (0-0.8); Eosinophils % (auto) 0.1 % (0.0-7.0); Hematocrit 43.3 % (36.0-46.0); Hemoglobin 14.3 g/dL (12.2-16.2); Lymphocytes # (auto) 0.8 10 ^3/uL (0.4-5.4); Lymphocytes % (auto) 11.9 % (10.0-50.0); Mean Corpuscular Hemoglobin 31.2 pg (28.0-32.0); Mean Corpuscular Hgb Conc. 33.1 g/dL (32.0-36.0); Mean Corpuscular Volume 94.4 fL (80.0-100.0); Monocytes # (auto) 0.4 10 ^3/uL (0-1.3); Neutrophils # (auto) 5.9 10 ^3/uL (1.6-8.6); Neutrophils % (auto) 82.8 % (37.0-80.0); Nucleated Red Blood Cells % 0.3 %; Platelet Count (auto) 276 10^3/uL (140-450); Red Blood Cells 4.59 10^6/uL (4.0-5.20); Red Cell Distribution Width 15.3 % (11.8-14.3); White Blood Cell 7.1 10^3/uL (4.4-10.8)
[2024-09-27 07:50] LABS: Chloride 106 mmol/L (98-107); Sodium 139 mmol/L (136-145)
[2024-09-27 07:51] LABS: Anion Gap 13 (5-15); Calcium 9.8 mg/dL (8.7-10.4)
[2024-09-27 07:53] LABS: Urine Bacteria None Seen /hpf (None Seen)
[2024-09-27 07:54] LABS: Carbon Dioxide 20 mmol/L (20-31); Potassium 3.2 mmol/L (3.5-5.1)
[2024-09-27 07:56] LABS: BUN/Creatinine Ratio 19.3 (10.0-20.0); Blood Urea Nitrogen 16 mg/dL (9-23); Glucose 104 mg/dL (74-106)
[2024-09-27 08:06] LABS: Urine Blood Negative /uL (Negative); Urine Clarity Clear (Clear); Urine Color Yellow (Yellow); Urine Mucus FEW (None Seen); Urine Protein, UAD 1+ (Negative); Urine Specific Gravity 1.037 (1.001-1.035); Urine Squamous Epithelial Cell FEW /hpf (<5); Urine Urobilinogen Normal (Negative); Urine WBC 4 /HPF (0-5); Urine pH 5.5 (5.0-9.0)
--- NOTE | 2024-09-27 08:39 | ECG ---
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
--- NOTE | 2024-09-27 11:37 | DVH ---
INDICATION: pain COMPARISON: CT 02/22/2024 TECHNIQUE: 3 views of the lumbar spine were obtained. FINDINGS/IMPRESSION: Diffuse osteopenia. Severe multilevel degenerative disc disease of the lumbosacral spine. Dextroscol iosis centered at the L3 vertebral body. Chronic appearing vertebral compression fractures of the L2 vertebral body and and T12 and T11 vertebral bodies.
[2024-09-27] MEDS ORDERED: FAMO-12 (12:19)
--- NOTE | 2024-09-27 12:21 | DVHHP2 ---
History of Present Illness Reason for Visit: Back pain History of Present Illness Keena Kelley is an 84-year-old female with past medical history of hyperlipidemia, dementia, hypotension, IA, thyroid disease, and knee surgery who presents to the ED with back pain. Patient states that she fell out of her bed in 2023 does not recall the month. She also states that her left leg is shorter than her right. She states that the pain is 10/10 sharp and constant she also reports that she has been using a wheelchair the last several days but before that was using a front wheel walker to ambulate. She states that she lives with a roommate. She denies any chest pain, shortness of breath, fever, chills, recent sick contacts, abdominal pain, nausea, vomiting, diarrhea, and lightheadedness. 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 IMPROVEMENT: Dementia Endocrine: Hypothyroidism Past Surgical History: Other (Knee surgery) Family History: DM, Other (Mom with diabetes) Smoke: No ALCOHOL: none Drugs: None Lives: Roommate Domestic Violence: Neg Review of Systems Musculoskeletal: back pain Allergies: Coded Allergies: No Known Drug Allergy (Verified Allergy, Unknown, 02/28/20) Exam Vital Signs Vital Signs Date Time Temp Pulse Resp B/P (MAP) Pulse Ox O2 Delivery O2 Flow Rate FiO2 09/27/24 10:09 98.0 82 16 97/55 (69) 97 98.0 09/27/24 07:28 Room Air* 0 21 General Appearance: Alert, Oriented X3, Cooperative, No acute distress HEENT: Atraumatic, PERRLA, EOMI, Mucous membr. moist/pink Respiratory: Clear to auscultation, Normal air movement Cardiovascular: Normal S1, Normal S2, No murmurs Abdominal: Normal bowel sounds, Soft, No tenderness, No hepatospenomegaly Extremities: No clubbing, No cyanosis, No edema, Normal pulses, No tenderness/swelling Neuro: Normal speech, Sensation intact Psych/Mental Status: Mental status NL, Mood NL Labs/Xrays Labs Test 09/27/24 07:31 09/27/24 07:17 09/27/24 07:03 Range/Units White Blood Count 7.1 4.4-10.8 10^3/uL Red Blood Count 4.59 4.0-5.20 10^6/uL Hemoglobin 14.3 12.2-16.2 g/dL Hematocrit 43.3 36.0-46.0 % Mean Corpuscular Volume 94.4 80.0-100.0 fL Mean Corpuscular Hemoglobin 31.2 28.0-32.0 pg Mean Corpuscular Hemoglobin Concent 33.1 32.0-36.0 g/dL Red Cell Distribution Width 15.3 H 11.8-14.3 % Platelet Count 276 140-450 10^3/uL Mean Platelet Volume 8.8 6.9-10.8 fL Neutrophils (%) (Auto) 82.8 H 37.0-80.0 % Lymphocytes (%) (Auto) 11.9 10.0-50.0 % Monocytes (%) (Auto) 5.0 0.0-12.0 % Eosinophils (%) (Auto) 0.1 0.0-7.0 % Basophils (%) (Auto) 0.2 0.0-2.0 % Neutrophils # (Auto) 5.9 1.6-8.6 10 ^3/uL Lymphocytes # (Auto) 0.8 0.4-5.4 10 ^3/uL Monocytes # (Auto) 0.4 0-1.3 10 ^3/uL Eosinophils # (Auto) 0 0-0.8 10 ^3/uL Basophils # (Auto) 0 0-0.2 10 ^3/uL Nucleated Red Blood Cells 0.3 % Sodium Level 139 136-145 mmol/L Potassium Level 3.2 L 3.5-5.1 mmol/L Chloride Level 106 98-107 mmol/L Carbon Dioxide Level 20 20-31 mmol/L Anion Gap 13 5-15 Blood Urea Nitrogen 16 9-23 mg/dL Creatinine 0.83 0.550-1.02 mg/dL Glomerular Filtration Rate Calc 70 >90 mL/min BUN/Creatinine Ratio 19.3 10.0-20.0 Serum Glucose 104 74-106 mg/dL Calcium Level 9.8 8.7-10.4 mg/dL Urine Color Yellow Yellow Urine Clarity Clear Clear Urine pH 5.5 5.0-9.0 Urine Specific [place] 1.037 H 1.001-1.035 Urine Protein 1+ H Negative Urine Ketones Negative Negative Urine Blood Negative Negative /uL Urine Nitrite Negative Negative Urine Bilirubin Negative Negative Urine Urobilinogen Normal Negative mg/dL Urine Leukocyte Esterase Negative Negative /uL Urine RBC 4 0 - 4 /hpf Urine Microscopic WBC 4 0-5 /HPF Urine Squamous Epithelial Cells Few <5 /hpf Urine Bacteria None seen None Seen /hpf Urine Mucus Few None Seen Urine Glucose Normal Normal mg/dL POC Glucose 99 70-106 mg/dl INDICATION: pain COMPARISON: CT 02/22/2024 TECHNIQUE: 3 views of the lumbar spine were obtained. FINDINGS/IMPRESSION: Diffuse osteopenia. Severe multilevel degenerative disc disease of the lumbosacral spine. Dextroscoliosis centered at the L3 vertebral body. Chronic appearing vertebral compression fractures of the L2 vertebral body and and T12 and T11 vertebral bodies. Assessment/Plan Assessment/Plan Assessment/Plan: Intractable back pain Diffuse osteopenia Severe multilevel degenerative disc disease of the lumbosacral spine Dextroscoliosis centered at the L3 vertebral body Hypokalemia Proteinuria Replete lytes Labs UA Pain management Diet EKG X-ray lumbar spine Antiemetics A.m. labs Chronic hyperlipidemia Continue home medications History of dementia Continue home medications History of IA Continue home medications History of hypothyroidism Continue home medications FEN/PPX diet Hep-Lock DVT prophylaxis -Lovenox PUD prophylaxis - continue home medication, famotidine Admit to med surge Home medications reconciled Discussed plan of care with patient and nurse Plan discussed with: Patient My Orders Orders - SATYA BERNAL Procedure Category Date Status Time Lumbar Spine 3 View XY 09/27/24 Resulted 10:51 Date of Service: Sep 27, 2024 Billing Provider: SATYA BERNAL Common Visit Codes: [id number] INP/OBS CARE (HIGH) SATYA BERNAL Sep 27, 2024 12:21
[2024-09-27] MEDS: SODIUM CHLORIDE 0.9% 500 ML IV ONE (12:41)
[2024-09-27] MEDS: POTASSIUM CHL 20 Meq TABLET PO ONE (12:55)
[2024-09-27] MEDS: MIDODRINE HCL 10 MG TAB PO SCH (13:03)
[2024-09-27] MEDS: CARBIDOPA W LEVODOPA 25/100mg TABLET PO SCH (14:15)
[2024-09-27 16:45] VITALS: BP 123/67; PULSE 84; RESP 16; TEMP 98.1; O2SAT 94
[2024-09-27 17:14] VITALS: PULSE 76; RESP 16; O2SAT 93
[2024-09-27] MEDS: ONDANSETRON HCL 4 MG/2 ML VIAL IV PRN (18:04)
[2024-09-27 20:00] VITALS: PULSE 60; RESP 16; O2SAT 93
[2024-09-27 21:00] VITALS: BP 133/55; PULSE 60; RESP 16; TEMP 97.9; O2SAT 93
[2024-09-27] MEDS: ATORVASTATIN 20 MG TAB PO SCH (21:37)
[2024-09-27] MEDS: GABAPENTIN 300 MG CAP PO SCH (21:37)
[2024-09-28] VITALS (9 sets, daily range): BP systolic 122–130; BP diastolic 59–67; PULSE 66–87; RESP 16–19; TEMP 97.1–98.7; O2SAT 91–98
[2024-09-28] MEDS: ACETAMINOPHEN 325 MG TAB PO PRN (05:46)
[2024-09-28] MEDS: LEVOTHYROXINE SODIUM 25 MCG TAB PO SCH (07:00)
[2024-09-28 07:11] LABS: Basophils # (auto) 0 10 ^3/uL (0-0.2); Basophils % (auto) 0.4 % (0.0-2.0); Eosinophils # (auto) 0.1 10 ^3/uL (0-0.8); Eosinophils % (auto) 1.4 % (0.0-7.0); Hematocrit 37.6 % (36.0-46.0); Hemoglobin 12.5 g/dL (12.2-16.2); Lymphocytes # (auto) 1.5 10 ^3/uL (0.4-5.4); Mean Corpuscular Hemoglobin 31.7 pg (28.0-32.0); Mean Corpuscular Hgb Conc. 33.4 g/dL (32.0-36.0); Mean Corpuscular Volume 94.9 fL (80.0-100.0); Monocytes # (auto) 0.5 10 ^3/uL (0-1.3); Monocytes % (auto) 7.2 % (0.0-12.0); Neutrophils # (auto) 5.1 10 ^3/uL (1.6-8.6); Nucleated Red Blood Cells % 0.2 %; Platelet Count (auto) 239 10^3/uL (140-450); Red Blood Cells 3.96 10^6/uL (4.0-5.20); Red Cell Distribution Width 15.2 % (11.8-14.3); White Blood Cell 7.2 10^3/uL (4.4-10.8)
[2024-09-28 07:17] LABS: Alkaline Phosphatase 82 U/L (46-116); Anion Gap 14 (5-15); BUN/Creatinine Ratio 22.6 (10.0-20.0); Blood Urea Nitrogen 19 mg/dL (9-23); Calcium 9.5 mg/dL (8.7-10.4); Carbon Dioxide 21 mmol/L (20-31); Chloride 106 mmol/L (98-107); Glucose 77 mg/dL (74-106); Sodium 141 mmol/L (136-145)
[2024-09-28 07:18] LABS: Aspartate Aminotransferase 19 U/L (13-40); Bilirubin, Total 0.4 mg/dL (0.2-1.0); Total Protein 6.2 g/dL (5.7-8.2)
[2024-09-28 07:25] LABS: Potassium 3.4 mmol/L (3.5-5.1)
[2024-09-28 07:26] LABS: Alanine Aminotransferase < 9 U/L (7-40)
[2024-09-28] MEDS: ENOXAPARIN SOD 40 MG/0.4 ML SYRINGE SC SCH (10:25)
[2024-09-28] MEDS: VENLAFAXINE HCL 37.5mg XR cap PO SCH (10:25)
--- NOTE | 2024-09-28 13:34 | DVHPN2 ---
Reviewed: Care Plan, H&P, Labs, Medications, Previous Orders, Radiology Changes from previous H/P or p: No Changes Musculoskeletal: back pain Objective Vitals Vital Signs Date Time Temp Pulse Resp B/P (MAP) Pulse Ox O2 Delivery O2 Flow Rate FiO2 09/28/24 09:00 97.3 69 16 122/61 (81) 92 97.3 09/27/24 20:00 Room Air* 0 21 Intake/Output Intake and Output 09/28/24 07:00 Intake Total 650 ml Balance 650 ml Intake Oral 150 ml IV Total 500 ml # Voids 1 Medications Current Medications Medications Dose Ordered Sig/Judah Route Start Time Stop Time Status Last Admin Dose Admin Ondansetron HCl 4 mg Q4HP PRN IV 09/27/24 12:00 09/28/24 10:26 4 MG Acetaminophen 650 mg Q6HP PRN PO 09/27/24 12:00 09/28/24 05:46 650 MG Enoxaparin Sodium 40 mg DAILY SC 09/28/24 10:00 09/28/24 10:25 40 MG Atorvastatin Calcium 20 mg HS PO 09/27/24 22:00 09/27/24 21:37 20 MG Gabapentin 300 mg BID PO 09/27/24 22:00 09/28/24 10:24 300 MG Carbidopa/Levodopa 1 tab TID PO 09/27/24 14:00 09/28/24 05:46 1 TAB Levothyroxine Sodium 25 mcg QAM PO 09/28/24 07:00 09/28/24 07:00 25 MCG Midodrine 10 mg DAILY@0600,1200,1800 PO 09/27/24 12:45 09/28/24 05:46 10 MG Venlafaxine HCl 37.5 mg DAILY PO 09/28/24 10:00 09/28/24 10:25 37.5 MG Laboratory Results Laboratory Tests 09/28/24 05:49 Chemistry Test 09/28/24 05:49 Albumin 4.0 g/dL (3.2-4.8) Calcium Level 9.5 mg/dL (8.7-10.4) Total Protein 6.2 g/dL (5.7-8.2) LFT Test 09/28/24 05:49 Alanine Aminotransferase (ALT) < 9 U/L (7-40) Alkaline Phosphatase 82 U/L (46-116) Aspartate Amino Transferase (AST) 19 U/L (13-40) Total Bilirubin 0.4 mg/dL (0.2-1.0) Urinalysis Test 09/27/24 07:17 Urine Color Yellow (Yellow) Urine Clarity Clear (Clear) Urine pH 5.5 (5.0-9.0) Urine Specific [place] 1.037 (1.001-1.035) Urine Protein 1+ (Negative) H Urine Ketones Negative (Negative) Urine Blood Negative /uL (Negative) Urine Nitrite Negative (Negative) Urine Bilirubin Negative (Negative) Urine Urobilinogen Normal mg/dL (Negative) Urine Leukocyte Esterase Negative /uL (Negative) Urine RBC 4 /hpf (0 - 4) Urine Microscopic WBC 4 /HPF (0-5) Urine Squamous Epithelial Cells Few /hpf (<5) Urine Bacteria None seen /hpf (None Seen) Urine Mucus Few (None Seen) Urine Glucose Normal mg/dL (Normal) Labs and/or images reviewed: Labs reviewed by me, Image(s) reviewed by me Assessment/Plan Assessment/Plan Acute exacerbation of chronic back pain L-spine x-ray shows DJD changes, will order L-spine CT: [place] History of [place] Depression: Effexor Hypercholesterolemia lipitor Hypothyroidism : Synthroid Chronic hypotension: Midodrine Parkinson's: Sinemet Dementia Patient lives with a roommate Plan discussed with: Patient My Orders Orders - BLAKE LINDA MD Procedure Category Date Status Time Ls Spine Wo Contrast CT 09/28/24 Verified 13:28 Date of Service: Sep 28, 2024 Billing Provider: BLAKE LINDA MD Common Visit Codes: [id number] INP/OBS CARE(HIGH) BLAKE LINDA MD Sep 28, 2024 13:34
--- NOTE | 2024-09-28 14:32 | DVH ---
EXAM: CT LS SPINE WO CONTRAST INDICATION: Severe back pain EXAM DATE: 09/28/2024 01:46 PM COMPARISON: CT CAP from 02/22/24 TECHNIQUE: Multiple axial CT images of the lumbar spine were obtained using bone algorithm. Axial and coronal reformatting was done. Bone and soft tissue windows were reviewed. Radiation Dose Information: CT Dose: CTDI volume is 9.03 mGy. Dose-length product is 274.58 mGy*cm Findings: There are 5 nonrib-bearing lumbar vertebrae. Severe compression fractures of T11, L2, and L5. No retropulsion. Mild compression fracture of T12. There is no evidence of spondylolisthesis. Moderate spondylosis. No spinal canal stenosis. The alignment is within normal limits. The paraspinal soft tissues appear within normal limits. Diver ticulosis. Bilateral nephrolithiasis. T12-L1: Moderate degenerative disc disease. Mild left neuroforaminal stenosis. L1-L2: Moderate degenerative disc disease. Moderate right and mild left neuroforaminal stenosis. L2-L3: Moderate degenerative disc disease. Mild to moderate right and mild left neuroforaminal steno sis. L3-L4: Severe degenerative disc disease. L4-L5: Moderate degenerative disc disease. Mild right neuroforaminal stenosis. L5-S1: Normal Impression: 1. No evidence of an acute fracture. 2. Chronic compression fractures of T11, T12, L2, and L5. No retropulsion. 3. Moderate degenerative changes of the lumbar spine with multilevel [id number] degenerative disc disease and neural foraminal stenosis.
[2024-09-28] MEDS: HYDROcodone-ACET 5/325MG TAB PO PRN (16:55)
[2024-09-29 05:00] VITALS: BP 133/66; PULSE 81; RESP 18; TEMP 98; O2SAT 94
[2024-09-29 09:24] VITALS: BP 148/78; PULSE 81; RESP 17; O2SAT 92
--- NOTE | 2024-09-29 09:37 | DVHPN2 ---
Reviewed: Care Plan, H&P, Labs, Medications, Previous Orders, Radiology Changes from previous H/P or p: No Changes Musculoskeletal: back pain Objective Vitals Vital Signs Date Time Temp Pulse Resp B/P (MAP) Pulse Ox O2 Delivery O2 Flow Rate FiO2 09/29/24 05:00 98.0 81 18 133/66 (88) 94 98.0 09/28/24 20:00 Room Air* 0 21 Intake/Output Intake and Output 09/29/24 07:00 Intake Total 240 ml Output Total 0 ml Balance 240 ml Intake Oral 240 ml Output Urine Total 0 ml # Voids 3 # Bowel Movements 1 Medications Current Medications Medications Dose Ordered Sig/Judah Route Start Time Stop Time Status Last Admin Dose Admin Ondansetron HCl 4 mg Q4HP PRN IV 09/27/24 12:00 09/28/24 10:26 4 MG Acetaminophen 650 mg Q6HP PRN PO 09/27/24 12:00 09/28/24 05:46 650 MG Enoxaparin Sodium 40 mg DAILY SC 09/28/24 10:00 09/28/24 10:25 40 MG Atorvastatin Calcium 20 mg HS PO 09/27/24 22:00 09/28/24 21:19 20 MG Gabapentin 300 mg BID PO 09/27/24 22:00 09/28/24 21:19 300 MG Carbidopa/Levodopa 1 tab TID PO 09/27/24 14:00 09/29/24 05:46 1 TAB Levothyroxine Sodium 25 mcg QAM PO 09/28/24 07:00 09/29/24 05:47 25 MCG Midodrine 10 mg DAILY@0600,1200,1800 PO 09/27/24 12:45 09/29/24 05:52 10 MG Venlafaxine HCl 37.5 mg DAILY PO 09/28/24 10:00 09/28/24 10:25 37.5 MG Acetaminophen/ Hydrocodone Bitart 1 tab Q4HPRN PRN PO 09/28/24 13:45 09/29/24 04:07 1 TAB Laboratory Results Laboratory Tests 09/28/24 05:49 Urinalysis Test 09/27/24 07:17 Urine Color Yellow (Yellow) Urine Clarity Clear (Clear) Urine pH 5.5 (5.0-9.0) Urine Specific [place] 1.037 (1.001-1.035) Urine Protein 1+ (Negative) H Urine Ketones Negative (Negative) Urine Blood Negative /uL (Negative) Urine Nitrite Negative (Negative) Urine Bilirubin Negative (Negative) Urine Urobilinogen Normal mg/dL (Negative) Urine Leukocyte Esterase Negative /uL (Negative) Urine RBC 4 /hpf (0 - 4) Urine Microscopic WBC 4 /HPF (0-5) Urine Squamous Epithelial Cells Few /hpf (<5) Urine Bacteria None seen /hpf (None Seen) Urine Mucus Few (None Seen) Urine Glucose Normal mg/dL (Normal) Labs and/or images reviewed: Labs reviewed by me, Image(s) reviewed by me Assessment/Plan Assessment/Plan Acute exacerbation of chronic back pain L-spine x-ray shows DJD changes, [place] Chronic compression fractures of T11, T12, L2, and L5. No retropulsion. 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
[2024-09-29 13:01] VITALS: BP 138/81; PULSE 81; RESP 18; O2SAT 91
[2024-09-29 17:20] VITALS: BP 124/66; PULSE 83; RESP 18; TEMP 97.6; O2SAT 90
[2024-09-29 21:00] VITALS: BP 153/83; PULSE 96; RESP 18; TEMP 97.7; O2SAT 93
[2024-09-30] VITALS (7 sets, daily range): BP systolic 124–142; BP diastolic 67–75; PULSE 70–87; RESP 16–19; TEMP 97.5–98; O2SAT 92–97
--- NOTE | 2024-09-30 10:30 | DVHPN2 ---
Reviewed: Care Plan, H&P, Labs, Medications, Previous Orders, Radiology Changes from previous H/P or p: No Changes Musculoskeletal: back pain Objective Vitals Vital Signs Date Time Temp Pulse Resp B/P (MAP) Pulse Ox O2 Delivery O2 Flow Rate FiO2 09/30/24 05:00 97.7 77 18 126/73 (90) 97 97.7 09/29/24 20:00 Room Air* 0 21 Intake/Output Intake and Output 09/30/24 07:00 Intake Total 1015 ml Balance 1015 ml Intake Oral 1015 ml # Voids 7 Medications Current Medications Medications Dose Ordered Sig/Judah Route Start Time Stop Time Status Last Admin Dose Admin Ondansetron HCl 4 mg Q4HP PRN IV 09/27/24 12:00 09/28/24 10:26 4 MG Acetaminophen 650 mg Q6HP PRN PO 09/27/24 12:00 09/28/24 05:46 650 MG Enoxaparin Sodium 40 mg DAILY SC 09/28/24 10:00 09/29/24 09:45 40 MG Atorvastatin Calcium 20 mg HS PO 09/27/24 22:00 09/29/24 21:30 20 MG Gabapentin 300 mg BID PO 09/27/24 22:00 09/29/24 21:30 300 MG Carbidopa/Levodopa 1 tab TID PO 09/27/24 14:00 09/30/24 05:56 1 TAB Levothyroxine Sodium 25 mcg QAM PO 09/28/24 07:00 09/30/24 05:56 25 MCG Midodrine 10 mg DAILY@0600,1200,1800 PO 09/27/24 12:45 09/30/24 05:56 10 MG Venlafaxine HCl 37.5 mg DAILY PO 09/28/24 10:00 09/29/24 09:44 37.5 MG Acetaminophen/ Hydrocodone Bitart 1 tab Q4HPRN PRN PO 09/28/24 13:45 09/30/24 05:57 1 TAB Laboratory Results Laboratory Tests 09/28/24 05:49 Urinalysis Test 09/27/24 07:17 Urine Color Yellow (Yellow) Urine Clarity Clear (Clear) Urine pH 5.5 (5.0-9.0) Urine Specific [place] 1.037 (1.001-1.035) Urine Protein 1+ (Negative) H Urine Ketones Negative (Negative) Urine Blood Negative /uL (Negative) Urine Nitrite Negative (Negative) Urine Bilirubin Negative (Negative) Urine Urobilinogen Normal mg/dL (Negative) Urine Leukocyte Esterase Negative /uL (Negative) Urine RBC 4 /hpf (0 - 4) Urine Microscopic WBC 4 /HPF (0-5) Urine Squamous Epithelial Cells Few /hpf (<5) Urine Bacteria None seen /hpf (None Seen) Urine Mucus Few (None Seen) Urine Glucose Normal mg/dL (Normal) Labs and/or images reviewed: Labs reviewed by me, Image(s) reviewed by me Assessment/Plan Assessment/Plan Acute exacerbation of chronic back pain L-spine x-ray shows DJD changes, [place] Chronic compression fractures of T11, T12, L2, and L5. No retropulsion. History of [place] Depression: Effexor Hypercholesterolemia lipitor Hypothyroidism : Synthroid Chronic hypotension: Midodrine Parkinson's: Sinemet Dementia Patient lives with a roommate Grandson and power of deputy attorney general Silvestre [phone] bedside Per Silvestre, patient was in [place] post acute Mar 2024 to 08-15-24 Physical therapy ordered Plan discussed with: Patient Date of Service: Sep 30, 2024 Billing Provider: BLAKE LINDA MD Common Visit Codes: [id number] INP/OBS CARE(HIGH) BLAKE LINDA MD Sep 30, 2024 10:30
[2024-10-01 05:00] VITALS: BP 131/70; PULSE 70; RESP 17; TEMP 97.9; O2SAT 93
[2024-10-01 07:06] LABS: COVID19 ANTIGEN SOFIA FIA NEGATIVE (NEGATIVE)
[2024-10-01 08:00] VITALS: PULSE 63; RESP 18; O2SAT 96
[2024-10-01 08:54] VITALS: BP 158/78; PULSE 63; RESP 18; TEMP 97.4; O2SAT 96
--- NOTE | 2024-10-01 11:10 | DVHPN2 ---
Reviewed: Care Plan, H&P, Labs, Medications, Previous Orders, Radiology Changes from previous H/P or p: No Changes Musculoskeletal: back pain Objective Vitals Vital Signs Date Time Temp Pulse Resp B/P (MAP) Pulse Ox O2 Delivery O2 Flow Rate FiO2 10/01/24 08:54 97.4 63 18 158/78 (104) 96 97.4 10/01/24 08:00 Room Air* 0 21 Intake/Output Intake and Output 10/01/24 07:00 Intake Total 515 ml Balance 515 ml Intake Oral 515 ml # Voids 6 Medications Current Medications Medications Dose Ordered Sig/Judah Route Start Time Stop Time Status Last Admin Dose Admin Ondansetron HCl 4 mg Q4HP PRN IV 09/27/24 12:00 09/28/24 10:26 4 MG Acetaminophen 650 mg Q6HP PRN PO 09/27/24 12:00 09/28/24 05:46 650 MG Enoxaparin Sodium 40 mg DAILY SC 09/28/24 10:00 10/01/24 09:58 40 MG Atorvastatin Calcium 20 mg HS PO 09/27/24 22:00 09/30/24 21:17 20 MG Gabapentin 300 mg BID PO 09/27/24 22:00 10/01/24 09:56 300 MG Carbidopa/Levodopa 1 tab TID PO 09/27/24 14:00 10/01/24 05:56 1 TAB Levothyroxine Sodium 25 mcg QAM PO 09/28/24 07:00 10/01/24 05:56 25 MCG Midodrine 10 mg DAILY@0600,1200,1800 PO 09/27/24 12:45 10/01/24 05:56 10 MG Venlafaxine HCl 37.5 mg DAILY PO 09/28/24 10:00 10/01/24 09:56 37.5 MG Acetaminophen/ Hydrocodone Bitart 1 tab Q4HPRN PRN PO 09/28/24 13:45 10/01/24 10:05 1 TAB Laboratory Results Laboratory Tests 09/28/24 05:49 Urinalysis Test 09/27/24 07:17 Urine Color Yellow (Yellow) Urine Clarity Clear (Clear) Urine pH 5.5 (5.0-9.0) Urine Specific [place] 1.037 (1.001-1.035) Urine Protein 1+ (Negative) H Urine Ketones Negative (Negative) Urine Blood Negative /uL (Negative) Urine Nitrite Negative (Negative) Urine Bilirubin Negative (Negative) Urine Urobilinogen Normal mg/dL (Negative) Urine Leukocyte Esterase Negative /uL (Negative) Urine RBC 4 /hpf (0 - 4) Urine Microscopic WBC 4 /HPF (0-5) Urine Squamous Epithelial Cells Few /hpf (<5) Urine Bacteria None seen /hpf (None Seen) Urine Mucus Few (None Seen) Urine Glucose Normal mg/dL (Normal) Labs and/or images reviewed: Labs reviewed by me, Image(s) reviewed by me Assessment/Plan Assessment/Plan Acute exacerbation of chronic back pain L-spine x-ray shows DJD changes, [place] Chronic compression fractures of T11, T12, L2, and L5. No retropulsion. Recurrent falls History of [place] Depression: Effexor Hypercholesterolemia lipitor Hypothyroidism : Synthroid Chronic hypotension: Midodrine Parkinson's: Sinemet Dementia Patient lives with a roommate Grandson and power of trial attorney Silvestre [phone] bedside Per Silvestre, patient was in [place] post acute Mar 2024 to 08-15-24 Physical therapy ordered Plan discussed with: Patient Date of Service: Oct 01, 2024 Billing Provider: BLAEK LINDA MD Common Visit Codes: [id number] INP/OBS CARE(HIGH) BLAKE LINDA MD Oct 01, 2024 11:10
--- NOTE | 2024-10-01 11:14 | DVHDS2 ---
Discharge Summary Date of Admission Sep 27, 2024 at 11:46 Date of Discharge: Oct 01, 2024 Admitting Diagnosis Acute exacerbation of chronic back pain Wounds: None Labs/Diagnostic Data: Laboratory Results Test 10/01/24 06:06 09/28/24 05:49 09/27/24 07:17 09/27/24 07:03 SARS-CoV-2 Antigen (Rapid) Negative (NEGATIVE) White Blood Count 7.2 10^3/uL (4.4-10.8) Red Blood Count 3.96 10^6/uL (4.0-5.20) Hemoglobin 12.5 g/dL (12.2-16.2) Hematocrit 37.6 % (36.0-46.0) Mean Corpuscular Volume 94.9 fL (80.0-100.0) Mean Corpuscular Hemoglobin 31.7 pg (28.0-32.0) Mean Corpuscular Hemoglobin Concent 33.4 g/dL (32.0-36.0) Red Cell Distribution Width 15.2 % (11.8-14.3) Platelet Count 239 10^3/uL (140-450) Mean Platelet Volume 9.5 fL (6.9-10.8) Neutrophils (%) (Auto) 70.0 % (37.0-80.0) Lymphocytes (%) (Auto) 21.0 % (10.0-50.0) Monocytes (%) (Auto) 7.2 % (0.0-12.0) Eosinophils (%) (Auto) 1.4 % (0.0-7.0) Basophils (%) (Auto) 0.4 % (0.0-2.0) Neutrophils # (Auto) 5.1 10 ^3/uL (1.6-8.6) Lymphocytes # (Auto) 1.5 10 ^3/uL (0.4-5.4) Monocytes # (Auto) 0.5 10 ^3/uL (0-1.3) Eosinophils # (Auto) 0.1 10 ^3/uL (0-0.8) Basophils # (Auto) 0 10 ^3/uL (0-0.2) Nucleated Red Blood Cells 0.2 % Sodium Level 141 mmol/L (136-145) Potassium Level 3.4 mmol/L (3.5-5.1) Chloride Level 106 mmol/L (98-107) Carbon Dioxide Level 21 mmol/L (20-31) Anion Gap 14 (5-15) Blood Urea Nitrogen 19 mg/dL (9-23) Creatinine 0.84 mg/dL (0.550-1.02) Glomerular Filtration Rate Calc 69 mL/min (>90) BUN/Creatinine Ratio 22.6 (10.0-20.0) Serum Glucose 77 mg/dL (74-106) Calcium Level 9.5 mg/dL (8.7-10.4) Total Bilirubin 0.4 mg/dL (0.2-1.0) Aspartate Amino Transferase (AST) 19 U/L (13-40) Alanine Aminotransferase (ALT) < 9 U/L (7-40) Alkaline Phosphatase 82 U/L (46-116) Total Protein 6.2 g/dL (5.7-8.2) Albumin 4.0 g/dL (3.2-4.8) Urine Color Yellow (Yellow) Urine Clarity Clear (Clear) Urine pH 5.5 (5.0-9.0) Urine Specific [place] 1.037 (1.001-1.035) Urine Protein 1+ (Negative) Urine Ketones Negative (Negative) Urine Blood Negative /uL (Negative) Urine Nitrite Negative (Negative) Urine Bilirubin Negative (Negative) Urine Urobilinogen Normal mg/dL (Negative) Urine Leukocyte Esterase Negative /uL (Negative) Urine RBC 4 /hpf (0 - 4) Urine Microscopic WBC 4 /HPF (0-5) Urine Squamous Epithelial Cells Few /hpf (<5) Urine Bacteria None seen /hpf (None Seen) Urine Mucus Few (None Seen) Urine Glucose Normal mg/dL (Normal) POC Glucose 99 mg/dl (70-106) Other Laboratory Tests 09/28/24 05:49 Brief Hx & Hospital Course: Ruled out female with a history of [place] depression hypercholesterolemia hypothyroidism chronic hypotension Parkinson's disease dementia with a chronic back pain multiple fractures in the back recurrent falls at home lives alone came in for exacerbation of the back pain. CT LS spine showed chronic compression fractures T11, T12-L2 and L5, no retropulsion. 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 Patient was put back on home medications and treated with the pain medications for the chronic back pain exacerbation received physical therapy who recommended nursing facility placement for rehab with the patient and her grandson is agreeable Consults/Reason for consult None Operations or Procedures CT LS spine Condition at Discharge: Fair Final Diagnosis/Problems List Acute exacerbation of chronic back pain L-spine x-ray shows DJD changes, [place] Chronic compression fractures of T11, T12, L2, and L5. No retropulsion. Recurrent falls History of [place] Depression: Effexor Hypercholesterolemia lipitor Hypothyroidism : Synthroid Chronic hypotension: Midodrine Parkinson's: Sinemet Dementia Discharge Disposition: Nursing Home Facility Discharge Instruct/Medications Diet: Regular Activity: Light activity Follow Up/Referral: Follow up with the longterm Medications: see list 39 (Time Taken for discharge summary 39 minutes) Discharge Statement: "Patient was advised to return to the ER or call 911 if any headaches, dizziness, shortness of breath, chest pain, abdominal pain, bleeding, fevers, or worsening of medical condition. Patient was counseled about treatment plan, medications, possible side effects, patientverbalized understanding. All questions were answered to the best of my ability. This discharge took greater then 30 minutes in planning, reviewing documentation, counseling the patient, and discussing with other team members." ASSESSMENT ASSESSMENT Hospital Course Uneventful Assessment Acute exacerbation of chronic back pain L-spine x-ray shows DJD changes, [place] Chronic compression fractures of T11, T12, L2, and L5. No retropulsion. Recurrent falls History of [place] Depression: Effexor Hypercholesterolemia lipitor Hypothyroidism : Synthroid Chronic hypotension: Midodrine Parkinson's: Sinemet Dementia Date of Service: Oct 01, 2024 Billing Provider: BLAKE LINDA MD Common Visit Codes: [id number] DISCH DAY >30min BLAKE LINDA MD Oct 01, 2024 11:14
[2024-10-01 12:10] VITALS: BP 158/78; PULSE 63; RESP 18; TEMP 97.4; O2SAT 96
[2024-10-01 12:59] VITALS: BP 133/59; PULSE 70; RESP 18; TEMP 97.9; O2SAT 95
[2024-10-01 17:05] VITALS: BP 137/69; PULSE 73; RESP 18; TEMP 97.6; O2SAT 94
== END 2024-10-01 18:45 | DRG 551 ==
LOC: ER 06:37 → EDBD 06:37 → OVERFLOW 11:46 → EAST 16:37
PROVIDERS: ADMIT Family Medicine; ATTEND Family Medicine
DX: M47.816 Spondylosis without myelopathy or radiculopathy, lumbar region (principal); G93.41 Metabolic encephalopathy; M48.54XA Collapsed vertebra, not elsewhere classified, thoracic region, initial encounter for fracture; M48.55XA Collapsed vertebra, not elsewhere classified, thoracolumbar region, initial encounter for fracture; M51.379 Other intervertebral disc degeneration, lumbosacral region without mention of lumbar back pain or lower extremity pain; M41.86 Other forms of scoliosis, lumbar region; E03.9 Hypothyroidism, unspecified; E78.00 Pure hypercholesterolemia, unspecified; E87.6 Hypokalemia; F32.A Depression, unspecified; G20.A1 Parkinson's disease without dyskinesia, without mention of fluctuations; Z20.822 Contact with and (suspected) exposure to COVID-19; F02.80 Dementia in other diseases classified elsewhere, unspecified severity, without behavioral disturbance, psychotic disturbance, mood disturbance, and anxiety; R29.6 Repeated falls; G89.29 Other chronic pain; I10 Essential (primary) hypertension; I95.89 Other hypotension; R80.9 Proteinuria, unspecified; M85.88 Other specified disorders of bone density and structure, other site; Z79.2 Long term (current) use of antibiotics; Z79.899 Other long term (current) drug therapy; Z79.891 Long term (current) use of opiate analgesic; Z83.3 Family history of diabetes mellitus; Z79.1 Long term (current) use of non-steroidal anti-inflammatories (NSAID); I25.2 Old myocardial infarction
CPT/HCPCS: 36415; 72100; 72131; 80048; 80053; 81001; 82962; 85025; 87426; 93005; 97163; G0378; J2405

== ENCOUNTER 2025-01-18 11:18 | Inpatient (IN) | payer MEDICARE, MEDICAID ==
[~2025-01-18] VITALS: Ht 157.5 cm; Wt 59.6 kg
[~2025-01-18 11:18] MED LIST changes: +FAMO-12
[2025-01-18] MEDS: SODIUM CHLORIDE 0.9% 1,000 ML IV ONE (11:30)
--- NOTE | 2025-01-18 12:04 | ED.PDOC ---
HPI Comments This is a 84 year old female LEIGH ANN presenting to the ED with chief complaint of chest pain. Patient reports that she has started to experience sudden 10/10 chest pain this morning that radiated to her left arm. EMS relays that the patient's BP was 60 systolically and HR ranged from 150-160 with A-Fib with RVR. EMS notes patient was given 324mg of ASA and 500mL of fluids prior to arrival. Patient denies any SOB, dizziness, N/V, fever, chills, numbness, or weakness. Chief Complaint: Chest Pain Time Seen by MD: 11:30 Primary Care Provider: n/a Reviewed Notes: Nurses Notes, Parachutist/Combatant Diver Qualified Notes, Medications, Allergies Allergies: Coded Allergies: No Known Drug Allergy (Verified Allergy, Unknown, 02/28/20) Home Meds Active Scripts Cephalexin (KEFLEX CAPSULE) 250 Mg Cp, 1 CAP PO TID, #21 CAP Prov:YARED MCINTYRE MD 12/08/23 Reported Medications Famotidine (Famotidine) 20 Mg Tab, 1 DAILY 09/27/24 Levodopa W/Carbidopa (Carbidopa/Levodopa) 1 Tab Tab, 1 TAB PO TID 12/07/23 Venlafaxine Hcl (Venlafaxine Hcl Er) 37.5 Mg Cap, 1 CAP PO DAILY 12/07/23 Oxycodone W/ Acetaminophen (Percocet 5/325MG) 1 Tab Tb, 1 TAB PO BID PRN for PAIN SCALE 7 THRU 10, TAB 10/31/23 Atorvastatin Calcium (ATORVASTATIN CALCIUM) 20 Mg Tab, 1 TAB PO HS, #30 TAB 5 Refills 09/01/23 Gabapentin (Gabapentin) 300 Mg Cap, 300 MG PO BID for 30 Days, MG 09/01/23 Levothyroxine Sodium (Levothyroxine Sodium) 25 Mcg Tab, 25 MCG PO QAM, TAB 09/01/23 Midodrine HCl (Midodrine HCl) 10 Mg Tab, 10 MG PO TID, TAB 02/28/20 Information Source: Patient, Emergency Med Personnel Mode of Arrival: EMS Severity: Moderate Timing: Hours Duration: Since onset Prehospital treatment: None Location: Chest (L) Quality: Sharp Onset: At Rest Cardiac Risk Factors: Hyperlipidemia PE Risk Factors: None History of: None Past Medical History PAST MEDICAL HISTORY: AFIB, Dementia, High Lipids, Hypotension, [place], Thyroid Surgical History: Denies all surgeries REPACKER History: Denies all REPACKER Hx Family History Family History: Reviewed,noncontributory to illness Social History Smoker: Non-Smoker Alcohol: Denies ETOH Use Drugs: Denies Drug Use Lives In: Home Constitutional: denies: chills, diaphoresis, fatigue, fever, malaise, sweats, weakness, others EENTM: denies: blurred vision, double vision, ear bleeding, ear discharge, ear drainage, ear pain, ear ringing, eye pain, eye redness, hearing loss, mouth pa in, mouth swelling, nasal discharge, nose bleeding, nose congestion, nose pain, photophobia, tearing, throat pain, throat swelling, voice changes, others Respiratory: denies: cough, hemoptysis, orthopnea, SOB at rest, shortness of breath, SOB with excertion, stridor, wheezing, others Cardiovascular: reports: chest pain, left arm pain; denies: dizzy spells, diaphoresis, Dyspnea on exertion, edema, irregular heart beat, lightheadedness, palpitations, PND, syncope, others Gastrointestinal: denies: abdomen distended, abdominal pain, blood streaked bowels, constipated, diarrhea, dysphagia, difficulty swallowing, hematemesis, melena, nausea, poor appetite, poor fluid intake, rectal bleeding, rectal pain, vomiting, others Genitourinary: denies: abnormal vagina bleeding, burning, dyspareunia, dysuria, flank pain, frequency, hematuria, incontinence, pain, , vagina discharge, urgency, others Neurological: denies: dizziness, fainting, headache, left sided numbness, left sided weakness, numbness, paresthesia, pre-existing deficit, right sided numbness, right sided weakness, seizure, speech problems, tingling, tremors, weakness, others Musculoskeletal: denies: back pain, gout, joint pain, joint swelling, muscle pain, muscle stiffness, neck pain, others Integumetry: denies: bruises, change in color, change in hair/nails, dryness, laceration, lesions, lumps, rash, wounds, others Allergic/Immunocompromised: denies: Difficulty Healing, Frequent Infections, Hives, Itching, others Hematologic/Lymphatic: denies: anemia, blood clots, easy bleeding, easy bruising, swollen glands, others Endocrine: denies: excessive hunger, excessive sweating, excessive thirst, excessive urination, flushing, intolerance to cold, intolerance to heat, unexplained weight gain, unexplained weight loss, others Psychiatric: denies: anxiety, bipolar disorder, depression, hopeless, panic disorder, schizophrenia, sleepless, suicidal, others All Other Systems: Reviewed and Negative Physical Exam General Appearance: No Apparent Distress, Normal HEENT: Normal ENT Inspection, Pharynx Normal, TMs Normal Neck: Full Range of Motion, Non-Tender, Normal, Normal Inspection Respiratory: Chest Non-Tender, Lungs Clear, No Accessory Muscle Use, No Respiratory Distress, Normal Breath Sounds Cardiovascular: No Edema, No JVD, No Murmur, No Gallop, Normal Peripheral Pulses, Tachycardia, Other (Irregularly irregular) Breast Exam: Deferred Gastrointestinal: No Organomegaly, Non Tender, No Pulsatile Mass, Normal Bowel Sounds, Soft Genitalia: Deferred Pelvic: Deferred Rectal: Deferred Extremities: No calf tenderness, Normal capillary refill, Normal inspection, Normal range of motion, Non-tender, No pedal edema Musculoskeletal : Apperance: Normal Neurologic: Alert, casual shoe inspector II-XII nml as Tested, No Motor Deficits, Normal Affect, Normal Mood, No Sensory Deficits Cerebellar Function: Normal Reflexes: Normal Skin: Dry, Normal Color, Warm Lymphatic: No Adenopathy Was a procedure done? Was a procedure done?: No CP Differential Dx Differential Diagnosis: A-fib, A-Flutter, Angina, PAC's Differential Diagnosis: Medical NonCompliance Differential Diagnosis: Cholelithiasis, Myocardial Infarction, Pericarditis X-Ray, Labs, Meds, VS Vital Signs Date Time Temp Pulse Resp B/P (MAP) Pulse Ox O2 Delivery O2 Flow Rate FiO2 01/18/25 12:20 140 12 95 Room Air* 0 21 01/18/25 12:20 98.2 140 16 85/56 (66) 96 98.2 01/18/25 12:17 132 01/18/25 11:24 98.1 148 16 100/47 (64) 96 98.1 01/18/25 11:20 156 Lab Test 01/18/25 12:58 01/18/25 11:53 Range/Units Troponin I High Sensitivity Pending 11 </=34 ng/L White Blood Count 7.4 4.4-10.8 10^3/uL Red Blood Count 4.49 4.0-5.20 10^6/uL Hemoglobin 14.2 12.2-16.2 g/dL Hematocrit 42.1 36.0-46.0 % Mean Corpuscular Volume 93.7 80.0-100.0 fL Mean Corpuscular Hemoglobin 31.5 28.0-32.0 pg Mean Corpuscular Hemoglobin Concent 33.6 32.0-36.0 g/dL Red Cell Distribution Width 14.7 H 11.8-14.3 % Platelet Count 147 140-450 10^3/uL Mean Platelet Volume 10.0 6.9-10.8 fL Neutrophils (%) (Auto) 37.0-80.0 % Lymphocytes (%) (Auto) 10.0-50.0 % Monocytes (%) (Auto) 0.0-12.0 % Basophils (%) (Auto) 0.0-2.0 % Neutrophils # (Auto) 1.6-8.6 10 ^3/uL Lymphocytes # (Auto) 0.4-5.4 10 ^3/uL Monocytes # (Auto) 0-1.3 10 ^3/uL Differential Total Cells Counted 100.0 100 Neutrophils % (Manual) 79 37.0-80.0 Band Neutrophils % (Manual) 0 Lymphocytes % (Manual) 16 10.0-50.0 Monocytes % (Manual) 2 0-12 Eosinophils % (Manual) 3 0-7 Basophils % (Manual) 0 0.0-2.0 Metamyelocytes % (manual) 0 Myelocytes % (Manual) 0 Promyelocytes % (Manual) 0 Blast Cells % (Manual) 0 Reactive Lymphocytes 0 Platelet Estimate Adequate Sodium Level 143 136-145 mmol/L Potassium Level 3.5 3.5-5.1 mmol/L Chloride Level 108 H 98-107 mmol/L Carbon Dioxide Level 15 L 20-31 mmol/L Anion Gap 20 H 5-15 Blood Urea Nitrogen 18 9-23 mg/dL Creatinine 0.86 0.550-1.02 mg/dL Glomerular Filtration Rate Calc 67 >90 mL/min BUN/Creatinine Ratio 20.9 H 10.0-20.0 Serum Glucose 78 74-106 mg/dL Calcium Level 8.9 8.7-10.4 mg/dL B-Type Natriuretic Peptide 186.92 0-100 pg/mL Current Medications Medications (Trade) Dose Ordered Sig/Judah Route Start Time Stop Time Status Last Admin Sodium Chloride 1,000 ml @ 1,000 mls/hr Q1H ONCE IV 01/18/25 11:30 01/18/25 12:29 DC 01/18/25 11:30 Time of 1ST Reevaluation: 12:27 Reevaluation 1ST: Improved Patient Education/Counseling: Diagnosis, Treatment Family Education/Counseling: No Family Present Additional Information Previous visits reviewed: 09/27/24 for intractable back pain The following tests were ordered, and results were reviewed by me: CBC, BMP, UA, BNP, Troponin, EKG, Chest XR Additional Information was gathered from interviewing the following independent historians: EMS I reviewed and agreed with the following test results read by other providers: Chest XR I discussed treatment and results with medical personnel and: patient Comprehensive systems review obtained and negative except for what is stated in the HPI. SEPSIS Sepsis Screen Physician Orders Urinalysis (01/18/25 11:22) Chest Portable (01/18/25 11:22) Electrocardigram (01/18/25 11:22) Troponin-I Hs (01/18/25 12:22) Troponin-I Hs (01/18/25 14:22) Electrocardigram (01/18/25 12:22) Electrocardigram (01/18/25 14:22) Amiodarone Bolus Kit (Cordarone) (01/18/25 13:30) Amiodarone 360mg/200ml Premix (Nexterone (01/18/25 13:30) Amiodarone 360mg/200ml Premix (Nexterone (01/18/25 19:30) Vital Signs Date Time Temp Pulse Resp B/P (MAP) Pulse Ox O2 Delivery O2 Flow Rate FiO2 01/18/25 12:20 140 12 95 Room Air* 0 21 01/18/25 12:20 98.2 140 16 85/56 (66) 96 98.2 01/18/25 12:17 132 01/18/25 11:24 98.1 148 16 100/47 (64) 96 98.1 01/18/25 11:20 156 Laboratory Tests Test 01/18/25 11:53 White Blood Count 7.4 10^3/uL (4.4-10.8) Medications Medications Dose Ordered Sig/Judah Route Start Time Stop Time Status Last Admin Dose Admin Sodium Chloride 1,000 ml @ 1,000 mls/hr Q1H ONCE IV 01/18/25 11:30 01/18/25 12:29 DC 01/18/25 11:30 Departure 1 Departure Time of Disposition: 13:22 (Patient presented with chest pain that was concerning for possible STEMI, ACS, PE, Pneumonia, Muscle Strain, COPD, Dissection. Data: 1. I ordered and reviewed the result of at least 3 labs including a CBC, BMP, and Troponin. 2. I independently interpreted the following tests: EKG which shows AFib with RVR and Chest X-ray which shows benign chest.Risk:This patient has a high risk of morbidity due to further diagnostic testing or treatment and may suffer from an acute cardiac or respiratory disorder. Workup reveals AFib with RVR and patient should be admitted for further workup and possible expert consultation. ) Impression: Primary Impression: Atrial fibrillation with RVR Additional Impression: Acute chest pain Disposition: ADMITTED INPATIENT Admit to: Tele Condition: Guarded Critical Care Note Critical Care Time?: Yes Critical care comment: AFib with RVR Authorized and Performed by: Laura Galeano MD Total critical care time: Approximately 39 minutes Due to a high probability of clinically significant, life threatening deterioration, the patient required my highest level of preparedness to intervene emergently and I personally spent this critical care time directly and personally managing the patient. This critical care time included obtaining a history; examining the patient; pulse oximetry; ordering and review of studies; arranging urgent treatment with development of a management plan; evaluation of patient's response to treatment; frequent reassessment; and, discussions with ot her providers. This critical care time was performed to assess and manage the high probability of imminent, life-threatening deterioration that could result in multi-organ failure. It was exclusive of separately billable procedures and treating other patients and teaching time. Please see my other sections and the rest of the note for further information on patient assessment and treatment. Stability Stability form required: No Heart Score Heart Score: Heart Score Response (Comments) Value History Highly Suspicious 2 EKG Repolarization Disturb 1 Age >65 2 Risk Factors >3 or Hx ASHD 2 Troponin >3 x's Normal limit 2 Total 9 I personally scribed for LAURA GALEANO MD ([email or web address]) on 01/18/25 at 12:03. Electronically submitted by Petr Franco ([email or web address]). LAURA GALEANO MD Jan 18, 2025 12:03
[2025-01-18 12:20] VITALS: PULSE 140; RESP 12; O2SAT 95
[2025-01-18 12:25] LABS: Hematocrit 42.1 % (36.0-46.0); Hemoglobin 14.2 g/dL (12.2-16.2); Mean Corpuscular Hemoglobin 31.5 pg (28.0-32.0); Mean Corpuscular Hgb Conc. 33.6 g/dL (32.0-36.0); Mean Corpuscular Volume 93.7 fL (80.0-100.0); Platelet Count (auto) 147 10^3/uL (140-450); Red Blood Cells 4.49 10^6/uL (4.0-5.20); Red Cell Distribution Width 14.7 % (11.8-14.3); White Blood Cell 7.4 10^3/uL (4.4-10.8)
[2025-01-18 12:27] LABS: Band Neutrophils % (manual) 0; Basophils % (manual) 0 (0.0-2.0); Blast Cells 0; Metamyelocytes % 0; Myelocytes % 0; Promyelocytes % 0; Reactive Lymphocytes 0
[2025-01-18 12:38] LABS: Anion Gap 20 (5-15); Sodium 143 mmol/L (136-145)
[2025-01-18 12:39] LABS: Calcium 8.9 mg/dL (8.7-10.4)
[2025-01-18 12:42] LABS: Carbon Dioxide 15 mmol/L (20-31); Chloride 108 mmol/L (98-107); Potassium 3.5 mmol/L (3.5-5.1)
[2025-01-18 12:44] LABS: BUN/Creatinine Ratio 20.9 (10.0-20.0); Blood Urea Nitrogen 18 mg/dL (9-23); Glucose 78 mg/dL (74-106)
--- NOTE | 2025-01-18 12:45 | DVH ---
CHEST RADIOGRAPH Indication: left sided chest pain Technique: Single frontal view of the chest was obtained COMPARISON: XY CHEST PORTABLE on DOS: 10/30/23, XY CHEST PORTABLE on DOS: 08/31/23, CHEST PORTABLE on D OS: 02/27/20 FINDINGS: Lines and Tubes: None Lungs: Clear Pleura: No effusion. No pneumothorax. Cardiomediastinal contours: Unremarkable Bones: Unremarkable IMPRESSION: No acute disease.
[2025-01-18 12:49] LABS: Eosinophils % (manual) 3 (0-7); Lymphocytes % (manual) 16 (10.0-50.0); Monocytes % (manual) 2 (0-12)
[2025-01-18 12:50] LABS: Platelet Estimate Adequate
[2025-01-18] MEDS: AMIODARONE BOLUS KIT 100 ML IV ONE (13:30)
[2025-01-18] MEDS: AMIODARONE 360mg/200mL PREMIX 200 ML IV ONE (13:30)
[2025-01-18] MEDS: AMIODARONE 360mg/200mL PREMIX 200 ML IV SCH (14:03)
[2025-01-18] MEDS ORDERED: NITROGLYCERIN 0.4 MG SL TAB SL PRN ×2 (15:45)
[2025-01-18] MEDS ORDERED: MORPHINE SULFATE INJ 2 MG/ml SYRG IV PRN (15:45)
[2025-01-18] MEDS ORDERED: ONDANSETRON HCL 4 MG/2 ML VIAL IV PRN (15:45)
[2025-01-18] MEDS ORDERED: ACETAMINOPHEN 325 MG TAB PO PRN (15:45)
[2025-01-18] MEDS ORDERED: MORPHINE SULFATE 4 MG/ML SYR/VIAL IV PRN (15:45)
[2025-01-18 16:19] LABS: Triglycerides 108 mg/dL (< 150)
[2025-01-18 16:20] LABS: LDL Cholesterol 77 mg/dL (< 100)
[2025-01-18 16:21] LABS: Cholesterol 156 mg/dL (< 200); HDL Cholesterol 58 mg/dL (40-59)
--- NOTE | 2025-01-18 16:21 | DVHHP2 ---
History of Present Illness Reason for Visit: Chest pain History of Present Illness Keena Kelley is an 84-year-old female with past medical history of hyperlipidemia, AFib, knee surgery, dementia, hypotension, AK, thyroid disease, spinal disease, and right hip replacement who presents to the ED with chest pain that radiates to left arm that started today. Patient states there are no triggering or alleviating factors. Upon examination patient states that her pain is 0/10. However when the pain started she stated the pain was 10/10 undescribable pain and constant. Patient also reports that she fell earlier in the year as well as in 2023. She states that she was hospitalized and then sent to rehab and now currently rents a room. She states that she uses a front wheel walker or cane to ambulate in her house. Patient is denying that she has dementia. Patient denies shortness of breath, fever, chills, lightheadedness, weakness, dizziness, recent trauma or injury, recent sick contacts, recent ingestion of spoiled food, abdominal pain, nausea, vomiting, diarrhea, or urinary symptoms. She reports that she is compliant with her medications. Cardiovascular: AFIB, AK, hyperipidemia Past Medical History Hypotension Thyroid disease Spinal disease at per patient reports Past Surgical History: Other (Knee surgery and right hip replacement) Family History: DM, Other (Mom and grandma with heart disease as well as diabetes) Smoke: No ALCOHOL: none Drugs: None Lives: Roommate Domestic Violence: Neg Review of Systems Cardiovascular: Chest Pain Allergies: Coded Allergies: No Known Drug Allergy (Verified Allergy, Unknown, 02/28/20) Medications Current Medications Medications Dose Ordered Sig/Judah Route Start Time Stop Time Status Last Admin Dose Admin Aspirin 81 mg DAILY PO 01/19/25 10:00 UNV Atorvastatin Calcium 40 mg HS PO 01/18/25 22:00 UNV Morphine Sulfate 2 mg Q30MP PRN IV 01/18/25 15:45 UNV Acetaminophen 650 mg Q6HP PRN PO 01/18/25 15:45 UNV Nitroglycerin 0.4 mg Q5MINP PRN SL 01/18/25 15:45 UNV Ondansetron HCl 4 mg Q4HP PRN IV 01/18/25 15:45 UNV Nitroglycerin 0.4 mg Q5MINP PRN SL 01/18/25 15:45 UNV Morphine Sulfate 2 mg Q30M PRN IV 01/18/25 15:45 UNV Exam Vital Signs Vital Signs Date Time Temp Pulse Resp B/P (MAP) Pulse Ox O2 Delivery O2 Flow Rate FiO2 01/18/25 13:30 98.2 77 15 124/82 (96) 97 98.2 01/18/25 12:20 Room Air* 0 21 General Appearance: Alert, Oriented X3, Cooperative, No acute distress HEENT: Atraumatic, PERRLA, EOMI, Mucous membr. moist/pink Respiratory: Clear to auscultation, Normal air movement Cardiovascular: Normal S1, Normal S2 Abdominal: Normal bowel sounds, Soft Extremities: No clubbing, No cyanosis, No edema, Normal pulses Skin: No significant lesion Neuro: Normal speech, Normal tone, Sensation intact Psych/Mental Status: Mental status NL, Mood NL Labs/Xrays Labs Test 01/18/25 15:07 01/18/25 11:53 Range/Units Troponin I High Sensitivity 148 *H </=34 ng/L White Blood Count 7.4 4.4-10.8 10^3/uL Red Blood Count 4.49 4.0-5.20 10^6/uL Hemoglobin 14.2 12.2-16.2 g/dL Hematocrit 42.1 36.0-46.0 % Mean Corpuscular Volume 93.7 80.0-100.0 fL Mean Corpuscular Hemoglobin 31.5 28.0-32.0 pg Mean Corpuscular Hemoglobin Concent 33.6 32.0-36.0 g/dL Red Cell Distribution Width 14.7 H 11.8-14.3 % Platelet Count 147 140-450 10^3/uL Mean Platelet Volume 10.0 6.9-10.8 fL Neutrophils (%) (Auto) 37.0-80.0 % Lymphocytes (%) (Auto) 10.0-50.0 % Monocytes (%) (Auto) 0.0-12.0 % Basophils (%) (Auto) 0.0-2.0 % Neutrophils # (Auto) 1.6-8.6 10 ^3/uL Lymphocytes # (Auto) 0.4-5.4 10 ^3/uL Monocytes # (Auto) 0-1.3 10 ^3/uL Differential Total Cells Counted 100.0 100 Neutrophils % (Manual) 79 37.0-80.0 Band Neutrophils % (Manual) 0 Lymphocytes % (Manual) 16 10.0-50.0 Monocytes % (Manual) 2 0-12 Eosinophils % (Manual) 3 0-7 Basophils % (Manual) 0 0.0-2.0 Metamyelocytes % (manual) 0 Myelocytes % (Manual) 0 Promyelocytes % (Manual) 0 Blast Cells % (Manual) 0 Reactive Lymphocytes 0 Platelet Estimate Adequate Sodium Level 143 136-145 mmol/L Potassium Level 3.5 3.5-5.1 mmol/L Chloride Level 108 H 98-107 mmol/L Carbon Dioxide Level 15 L 20-31 mmol/L Anion Gap 20 H 5-15 Blood Urea Nitrogen 18 9-23 mg/dL Creatinine 0.86 0.550-1.02 mg/dL Glomerular Filtration Rate Calc 67 >90 mL/min BUN/Creatinine Ratio 20.9 H 10.0-20.0 Serum Glucose 78 74-106 mg/dL Calcium Level 8.9 8.7-10.4 mg/dL B-Type Natriuretic Peptide 186.92 0-100 pg/mL CHEST RADIOGRAPH Indication: left sided chest pain Technique: Single frontal view of the chest was obtained COMPARISON: XY CHEST PORTABLE on DOS: 10/30/23, XY CHEST PORTABLE on DOS: 08/31/23, CHEST PORTABLE on DOS: 02/27/20 FINDINGS: Lines and Tubes: None Lungs: Clear Pleura: No effusion. No pneumothorax. Cardiomediastinal contours: Unremarkable Bones: Unremarkable IMPRESSION: No acute disease. Assessment/Plan Assessment/Plan Assessment NSTEMI AFib with RVR History of hyperlipidemia History of AFib History of knee surgery History of hypertension History of AK History of thyroid disease History of spinal disease from History of right hip replacement Patient denies that she has dementia Plan Admit to tele Aspirin + Statin Amio given in ED Troponin noted NS 1 L given ED Manual differential EKG Chest x-ray noted BNP noted Last echo on 09/01/2023 EF 50% Echo ordered UA UDS TSH Lipid panel Free T4 Diet Home medications reconciled DVT prophylaxis-Lovenox PUD prophylaxis-H2 blockers Discussed plan of care with patient and nurse Cardiology consult Plan discussed with: Patient My Orders Orders - SATYA BERNAL GRISTMILL OPERATOR Procedure Category Date Status Time Echo 2d Mode Cardiac US 01/18/25 Logged DOP 15:34 Urinalysis LAB 01/18/25 Logged 15:34 Drug Screen LAB 01/18/25 Logged 15:34 Thyroid Stimulating LAB 01/18/25 Logged Hormone 15:34 Lipid Panel LAB 01/18/25 Logged 15:34 Free T4 (Free LAB 01/18/25 Logged Thyroxine) 15:34 Admit ADMIT 01/18/25 Transmitted 15:34 Code Status CODE 01/18/25 Transmitted 15:34 Vital Signs KATLYN 01/18/25 In Process 15:34 Lift Team Technician KATLYN 01/18/25 In Process 15:34 Cardiac DIET 01/18/25 Transmitted Diet-2gna,Lofat,Lochol Dinner Aspirin Tablet PHA 01/19/25 Logged 10:00 Atorvastatin (Lipitor) PHA 01/18/25 Logged 22:00 Morphine Sulfate PHA 01/18/25 Logged Injection 15:45 Acetaminophen Tablet PHA 01/18/25 Logged (Tylenol Tablet) 15:45 Complete Blood Count LAB 01/19/25 Verified 04:00 Basic Metabolic Panel LAB 01/19/25 Verified 04:00 Magnesium LAB 01/19/25 Verified 04:00 Nitroglycerin PHA 01/18/25 Logged Sublingual (Ntrostat 15:45 Ondansetron Hcl PHA 01/18/25 Logged (Zofran) 15:45 Electrocardigram EKG 01/19/25 Logged 04:00 Troponin-I Hs LAB 01/18/25 Logged 15:34 Cardiac KATLYN 01/18/25 In Process Rehabilitation - Outpa Nitroglycerin PHA 01/18/25 Logged Sublingual (Ntrostat 15:45 Morphine Sulfate PHA 01/18/25 Logged Injection 15:45 Stat Ekg For Chest KATLYN 01/18/25 In Process Pain 15:34 Notify Md Of Changes KATLYN 01/18/25 In Process From Base 15:34 Money Room Supervisor For KATLYN 01/18/25 In Process 24 Hours 15:34 Emergency Dysrhythmia KATLYN 01/18/25 In Process Protocol 15:34 Rhythm Strips Once KATLYN 01/18/25 In Process Every Shift 15:34 Oxygen By Nasal RT 01/18/25 Transmitted Cannula 15:34 * Cardiology Consult CONS 01/18/25 Transmitted 15:48 Date of Service: Jan 18, 2025 Billing Provider: SATYA BERNAL GRISTMILL OPERATOR Common Visit Codes: [id number] INP/OBS CARE (HIGH) SATYA BERNAL [facility] Jan 18, 2025 16:21
[2025-01-18 16:26] LABS: Urine Bacteria None Seen /hpf (None Seen)
[2025-01-18 16:39] LABS: Urine Blood TRACE /uL (Negative); Urine Clarity Clear (Clear); Urine Color Light-Yellow (Yellow); Urine Mucus FEW (None Seen); Urine Protein, UAD Negative (Negative); Urine Specific Gravity 1.021 (1.001-1.035); Urine Squamous Epithelial Cell FEW /hpf (<5); Urine Urobilinogen 2 mg/dL (Negative); Urine WBC 2 /HPF (0-5); Urine pH 5.5 (5.0-9.0)
[2025-01-18 16:50] LABS: Amphetamine Screen, Urine Neg (NEGATIVE); Barbiturate Scree,Urine Neg (NEGATIVE); Benzodiazephine Screen, Urine Neg (NEGATIVE); Cannabinoid Screen, Urine Neg (NEGATIVE); Cocaine Screen, Urine Neg (NEGATIVE); Opiate Scree,Urine Neg (NEGATIVE); Phencyclidine Screen, Urine Neg (NEGATIVE)
[2025-01-18] MEDS: ENOXAPARIN SOD 40 MG/0.4 ML SYRINGE SC SCH (17:00)
--- NOTE | 2025-01-18 19:17 | ECG ---
[facility] Test Date: 2025-01-18 Test Time: 12:17:41 Pat Name: MARIE BRANDT Department: ED Room: [address] [place] [address] Gender: F Oyster Grader: yoel : 1940 Requested By: LAURA FERRIS Order Number: [id number] Reading MD: Tez Chamberlain Measurements Intervals [place] Rate: 132 P: 0 NM: 0 QRS: -9 QRSD: 80 T: 29 QT: 324 QTc: 480 Interpretive Statements Atrial fibrillation Borderline low voltage, extremity leads Anteroseptal infarct, old ST depression, probably rate related Electronically Signed On 01-18-2025 21:19:49 PDT by Tez Chamberlain Please click the below link to view image of tracing.
[2025-01-18] MEDS ORDERED: HYDROcodone-ACET 5/325MG TAB PO PRN ×2 (20:30→20:45)
[2025-01-18] MEDS: ATORVASTATIN 20 MG TAB PO SCH (22:01)
[2025-01-18] MEDS: MIDODRINE HCL 10 MG TAB PO SCH (22:01)
[2025-01-18] MEDS: GABAPENTIN 300 MG CAP PO SCH (22:01)
[2025-01-18] MEDS: CARBIDOPA W LEVODOPA 25/100mg TABLET PO SCH (22:02)
[2025-01-18 23:26] VITALS: BP 142/74; PULSE 65; RESP 17; TEMP 98; O2SAT 95
[2025-01-19] VITALS (8 sets, daily range): BP systolic 118–156; BP diastolic 56–76; PULSE 61–101; RESP 16–17; TEMP 97.8–99.3; O2SAT 89–96
[2025-01-19] MEDS: LEVOTHYROXINE SODIUM 25 MCG TAB PO SCH (06:04)
[2025-01-19 06:49] LABS: Basophils # (auto) 0 10 ^3/uL (0-0.2); Basophils % (auto) 0.5 % (0.0-2.0); Eosinophils # (auto) 0.2 10 ^3/uL (0-0.8); Hematocrit 35.1 % (36.0-46.0); Hemoglobin 11.9 g/dL (12.2-16.2); Lymphocytes % (auto) 44.1 % (10.0-50.0); Mean Corpuscular Hemoglobin 31.4 pg (28.0-32.0); Mean Corpuscular Hgb Conc. 33.9 g/dL (32.0-36.0); Mean Corpuscular Volume 92.6 fL (80.0-100.0); Monocytes # (auto) 0.3 10 ^3/uL (0-1.3); Monocytes % (auto) 7.3 % (0.0-12.0); Neutrophils % (auto) 44.1 % (37.0-80.0); Nucleated Red Blood Cells % 0.1 %; Platelet Count (auto) 156 10^3/uL (140-450); Red Blood Cells 3.79 10^6/uL (4.0-5.20); Red Cell Distribution Width 14.8 % (11.8-14.3); White Blood Cell 4.6 10^3/uL (4.4-10.8)
[2025-01-19 06:54] LABS: Potassium 3.6 mmol/L (3.5-5.1); Sodium 144 mmol/L (136-145)
[2025-01-19 06:55] LABS: Anion Gap 11 (5-15); Carbon Dioxide 23 mmol/L (20-31)
[2025-01-19 06:59] LABS: Calcium 8.6 mg/dL (8.7-10.4); Chloride 110 mmol/L (98-107)
[2025-01-19 07:00] LABS: BUN/Creatinine Ratio 34.4 (10.0-20.0); Blood Urea Nitrogen 22 mg/dL (9-23); Glucose 82 mg/dL (74-106)
[2025-01-19 07:01] LABS: Magnesium 1.7 mg/dL (1.6-2.6)
[2025-01-19] MEDS: FAMOTIDINE 20 MG TAB PO SCH (10:43)
[2025-01-19] MEDS: ASPirin 81 mg TAB PO SCH (10:44)
[2025-01-19] MEDS: VENLAFAXINE HCL 37.5mg XR cap PO SCH (10:44)
--- NOTE | 2025-01-19 12:35 | ECG ---
[facility] Test Date: 2025-01-19 Test Time: 03:16:37 Pat Name: MARIE BRANDT Department: Room: 0290T A Gender: F Door Technician: SHELLEY : 1940 Requested By: SATYA BERNAL Order Number: [id number] Reading MD: Tez Chamberlain Measurements Intervals [place] Rate: 58 P: 101 VA: 151 QRS: 17 QRSD: 98 T: 75 QT: 421 QTc: 414 Interpretive Statements Sinus rhythm Electronically Signed On 01-22-2025 22:11:57 PDT by Tez Chamberlain Please click the below link to view image of tracing.
--- NOTE | 2025-01-19 12:46 | DVHPN2 ---
Reviewed: Care Plan, H&P, Labs, Medications, Previous Orders, Radiology Changes from previous H/P or p: No Changes Cardiovascular: Chest Pain Objective Vitals Vital Signs Date Time Temp Pulse Resp B/P (MAP) Pulse Ox O2 Delivery O2 Flow Rate FiO2 01/19/25 09:00 97.8 65 16 128/74 (92) 89 97.8 01/19/25 08:00 Room Air* 0 21 Intake/Output Intake and Output 01/19/25 07:00 Intake Total 200 ml Balance 200 ml Intake Oral 200 ml # Voids 1 Medications Current Medications Medications Dose Ordered Sig/Judah Route Start Time Stop Time Status Last Admin Dose Admin Aspirin 81 mg DAILY PO 01/19/25 10:00 01/19/25 10:44 81 MG Atorvastatin Calcium 40 mg HS PO 01/18/25 22:00 01/18/25 22:01 40 MG Morphine Sulfate 2 mg Q30MP PRN IV 01/18/25 15:45 Acetaminophen 650 mg Q6HP PRN PO 01/18/25 15:45 Ondansetron HCl 4 mg Q4HP PRN IV 01/18/25 15:45 Nitroglycerin 0.4 mg Q5MINP PRN SL 01/18/25 15:45 Famotidine 20 mg DAILY PO 01/19/25 10:00 01/19/25 10:43 20 MG Gabapentin 300 mg BID PO 01/18/25 22:00 01/19/25 10:43 300 MG Carbidopa/Levodopa 1 tab TID PO 01/18/25 22:00 01/19/25 06:04 1 TAB Levothyroxine Sodium 25 mcg QAM PO 01/19/25 07:00 01/19/25 06:04 25 MCG Midodrine 10 mg TID PO 01/18/25 22:00 01/18/25 22:01 10 MG Venlafaxine HCl 37.5 mg DAILY PO 01/19/25 10:00 01/19/25 10:44 37.5 MG Enoxaparin Sodium 40 mg DAILY SC 01/18/25 16:00 01/19/25 10:44 40 MG Acetaminophen/ Hydrocodone Bitart 1 tab Q6HPRN PRN PO 01/18/25 20:30 Acetaminophen/ Hydrocodone Bitart 1 tab Q6HPRN PRN PO 01/18/25 20:45 Laboratory Results Laboratory Tests 01/19/25 06:03 Chemistry Test 01/19/25 06:03 Calcium Level 8.6 mg/dL (8.7-10.4) L Magnesium Level 1.7 mg/dL (1.6-2.6) Lipid panel Test 01/18/25 15:07 Cholesterol Level 156 mg/dL (< 200) HDL Cholesterol 58 mg/dL (40-59) Triglycerides Level 108 mg/dL (< 150) HgA1c, TSH Test 01/18/25 15:07 Thyroid Stimulating Hormone (TSH) 0.67 uIU/mL (0.55-4.78) Urinalysis Test 01/18/25 00:00 Urine Color Light-yellow (Yellow) Urine Clarity Clear (Clear) Urine pH 5.5 (5.0-9.0) Urine Specific [place] 1.021 (1.001-1.035) Urine Protein Negative (Negative) Urine Ketones 2+ (Negative) H Urine Blood Trace /uL (Negative) H Urine Nitrite Negative (Negative) Urine Bilirubin Negative (Negative) Urine Urobilinogen 2 mg/dL (Negative) H Urine Leukocyte Esterase Negative /uL (Negative) Urine RBC 2 /hpf (0 - 4) Urine Microscopic WBC 2 /HPF (0-5) Urine Squamous Epithelial Cells Few /hpf (<5) Urine Bacteria None seen /hpf (None Seen) Urine Mucus Few (None Seen) Urine Glucose Normal mg/dL (Normal) Labs and/or images reviewed: Labs reviewed by me, Image(s) reviewed by me Assessment/Plan Assessment/Plan Acute chest pain rule out coronary artery disease Non ST-elevation IL with a troponin to 48: Treatment per ACS protocol consult for Cardiology Dr. Doty Acute exacerbation of chronic back pain L-spine x-ray shows DJD changes, [place] Chronic compression fractures of T11, T12, L2, and L5. No retropulsion. Recurrent falls History of IL AFib with RVR, amiodarone drip Depression: Effexor Hypercholesterolemia lipitor Hypothyroidism : Synthroid Chronic hypotension: Midodrine Parkinson's: Sinemet Dementia Plan discussed with: Patient Date of Service: Jan 19, 2025 Billing Provider: BLAKE LINDA MD Common Visit Codes: [id number] CARE 30-74 MIN BLAKE LINDA MD Jan 19, 2025 12:46
[2025-01-19] MEDS: hydrALAZINE HCL 20 MG/ML VL IV PRN (18:13)
[2025-01-19] MEDS: METOPROLOL TARTRATE 25 MG TAB PO ONE (18:54)
--- NOTE | 2025-01-19 18:54 | DVHINCON2 ---
Date Seen: Jan 19, [address] Kenny Reason for Consultation AFib with RVR Chest pain History of Present Illness An 84-year-old female presented to the emergency department via EMS with a chief complaint of chest pain. She reported sudden onset of severe chest pain rated 10/10 that began yesterday morning, with radiation to her left arm. EMS recorded hypotension with a systolic blood pressure of 60 mmHg and tachycardia with heart rates 150-160 beats per minute consistent with atrial fibrillation with rapid ventricular response. In the emergency department, the patient remained in AFib with RVR and received 500 mL normal saline bolus. Upon assessment, she currently denies chest pain or shortness of breath. Initial 12 lead ECG showed AFib with RVR but a repeat ECG revealed normal sinus rhythm. Serial troponin levels were positive and trending upward from 11, 43, 148, and the most recent lead to 286. Her CHADS-VASc score is 4 and HAS- BLED score is 2. Significant past medical history of AFib, hyperlipidemia, hypertension, dementia, CAD, and thyroid disease. The patient is alert and oriented but somehow poor historian. Past Medical History As stated in HPI Past Surgical History Denies Family History: Alcoholism Cerebrovascular accident Diabetes mellitus G8 MOTHER, FH: heart attack Family History Reviewed, non-contributory to the management of this case. Social History The patient lives at home, denies smoking, alcohol or illicit drugs abuse. Allergies: Coded Allergies: No Known Drug Allergy (Verified Allergy, Unknown, 02/28/20) Home Meds Active Scripts Cephalexin (KEFLEX CAPSULE) 250 Mg Cp, 1 CAP PO TID, #21 CAP Prov:YARED MCINTYRE MD 12/08/23 Reported Medications Famotidine (Famotidine) 20 Mg Tab, 1 DAILY 09/27/24 Levodopa W/Carbidopa (Carbidopa/Levodopa) 1 Tab Tab, 1 TAB PO TID 12/07/23 Venlafaxine Hcl (Venlafaxine Hcl Er) 37.5 Mg Cap, 1 CAP PO DAILY 12/07/23 Oxycodone W/ Acetaminophen (Percocet 5/325MG) 1 Tab Tb, 1 TAB PO BID PRN for PAIN SCALE 7 THRU 10, TAB 10/31/23 Atorvastatin Calcium (ATORVASTATIN CALCIUM) 20 Mg Tab, 1 TAB PO HS, #30 TAB 5 Refills 2/1/24 Gabapentin (Gabapentin) 300 Mg Cap, 300 MG PO BID for 30 Days, MG 09/01/23 Levothyroxine Sodium (Levothyroxine Sodium) 25 Mcg Tab, 25 MCG PO QAM, TAB 09/01/23 Midodrine HCl (Midodrine HCl) 10 Mg Tab, 10 MG PO TID, TAB 02/28/20 Current Medications Current Medications Medications (Trade) Dose Ordered Sig/Judah Route PRN Reason Start Time Stop Time Status Last Admin Aspirin 81 mg DAILY PO 01/19/25 10:00 01/19/25 10:44 Atorvastatin Calcium (Lipitor) 40 mg HS PO 01/18/25 22:00 01/18/25 22:01 Famotidine (Pepcid Tablet) 20 mg DAILY PO 01/19/25 10:00 01/19/25 10:43 Gabapentin (Neurontin Capsule) 300 mg BID PO 01/18/25 22:00 01/19/25 10:43 Carbidopa/Levodopa (Sinemet 25/ 100MG) 1 tab TID PO 01/18/25 22:00 01/19/25 13:46 Levothyroxine Sodium (Synthroid Tablet) 25 mcg QAM PO 01/19/25 07:00 01/19/25 06:04 Midodrine (Proamatine Tablet) 10 mg TID PO 01/18/25 22:00 01/18/25 22:01 Venlafaxine HCl (Effexor Xr) 37.5 mg DAILY PO 01/19/25 10:00 01/19/25 10:44 Acetaminophen/ Hydrocodone Bitart ([place] 5/325MG Tab) 1 tab Q6HPRN PRN PO MILD PAIN (1-3 PAIN SCALE) 01/18/25 20:30 01/19/25 18:09 DC Acetaminophen/ Hydrocodone Bitart ([place] 5/325MG Tab) 1 tab Q6HPRN PRN PO MILD PAIN (1-3 PAIN SCALE) 01/18/25 20:45 01/19/25 18:12 DC Hydralazine HCl (Apresoline Injection) 10 mg Q6HP PRN IV SBP>160 01/19/25 18:00 01/19/25 18:13 Acetaminophen/ Hydrocodone Bitart ([place] 5/325MG Tab) 1 tab Q6HPRN PRN PO MODERATE PAIN (4-6 PAIN SCALE) 01/19/25 18:15 Review of Systems Constitutional: No symptom reported Ears, Nose, & Throat: No symptom reported Eyes: No symptom reported Neurological: No symptoms reported Pulmonary/Respiratory: No symptom reported Cardiovascular: Initially chest pain, currently denies chest pain or palpitations Gastrointestinal: No symptom reported Genitourinary: No symptom reported Musculoskeletal: No symptom reported Skin: No symptom reported Psychiatric: No symptom reported Endocrine: No symptom reported Hemotologic/Lymphatic: No symptom reported Vital Signs Vital Signs Date Time Temp Pulse Resp B/P (MAP) Pulse Ox O2 Delivery O2 Flow Rate FiO2 01/19/25 18:13 167/85 01/19/25 17:04 99.3 72 16 93 99.3 01/19/25 08:00 Room Air* 0 21 Physical Exam INITIAL VITAL SIGNS: Reviewed by me GENERAL: Elderly female, alert, No acute distress. HEAD: Head is normocephalic and atraumatic. EYES: EOMI, PERRL. No scleral icterus. No conjunctival injection. ENT: Moist mucous membranes. NECK: Supple, No masses, Full range of motion. RESPIRATORY: No tachypnea. Clear breath sounds bilaterally. No wheezing, rales, rhonchi. CV: Irregularly irregular rhythm initially, now sinus rhythm GI/: Active bowel sounds, soft, nondistended, nontender. No guarding. No rebound. No masses. No CVA tenderness. INTEGUMENTARY: Warm and dry. No obvious rashes. NEUROLOGIC: Alert and oriented. Face is symmetric. Speech is normal. Moves all extremities equally. Labs/Diagnostic Data Labs Test 01/19/25 06:03 01/18/25 17:47 01/18/25 15:07 01/18/25 11:53 Range/Units White Blood Count 4.6 # 4.4-10.8 10^3/uL Red Blood Count 3.79 L 4.0-5.20 10^6/uL Hemoglobin 11.9 #L 12.2-16.2 g/dL Hematocrit 35.1 #L 36.0-46.0 % Mean Corpuscular Volume 92.6 80.0-100.0 fL Mean Corpuscular Hemoglobin 31.4 28.0-32.0 pg Mean Corpuscular Hemoglobin Concent 33.9 32.0-36.0 g/dL Red Cell Distribution Width 14.8 H 11.8-14.3 % Platelet Count 156 140-450 10^3/uL Mean Platelet Volume 10.1 6.9-10.8 fL Neutrophils (%) (Auto) 44.1 37.0-80.0 % Lymphocytes (%) (Auto) 44.1 10.0-50.0 % Monocytes (%) (Auto) 7.3 0.0-12.0 % Eosinophils (%) (Auto) 4.0 0.0-7.0 % Basophils (%) (Auto) 0.5 0.0-2.0 % Neutrophils # (Auto) 2.0 1.6-8.6 10 ^3/uL Lymphocytes # (Auto) 2.0 0.4-5.4 10 ^3/uL Monocytes # (Auto) 0.3 0-1.3 10 ^3/uL Eosinophils # (Auto) 0.2 0-0.8 10 ^3/uL Basophils # (Auto) 0 0-0.2 10 ^3/uL Nucleated Red Blood Cells 0.1 % Sodium Level 144 136-145 mmol/L Potassium Level 3.6 3.5-5.1 mmol/L Chloride Level 110 H 98-107 mmol/L Carbon Dioxide Level 23 20-31 mmol/L Anion Gap 11 5-15 Blood Urea Nitrogen 22 9-23 mg/dL Creatinine 0.64 0.550-1.02 mg/dL Glomerular Filtration Rate Calc 88 >90 mL/min BUN/Creatinine Ratio 34.4 H 10.0-20.0 Serum Glucose 82 74-106 mg/dL Calcium Level 8.6 L 8.7-10.4 mg/dL Magnesium Level 1.7 1.6-2.6 mg/dL Troponin I High Sensitivity 286 *H </=34 ng/L Triglycerides Level 108 < 150 mg/dL Cholesterol Level 156 < 200 mg/dL LDL Cholesterol 77 < 100 mg/dL HDL Cholesterol 58 40-59 mg/dL Thyroid Stimulating Hormone (TSH) 0.67 0.55-4.78 uIU/mL Free Thyroxine (T4) Calculated 1.12 0.89-1.76 ng/dL Differential Total Cells Counted 100.0 100 Neutrophils % (Manual) 79 37.0-80.0 Band Neutrophils % (Manual) 0 Lymphocytes % (Manual) 16 10.0-50.0 Monocytes % (Manual) 2 0-12 Eosinophils % (Manual) 3 0-7 Basophils % (Manual) 0 0.0-2.0 Metamyelocytes % (manual) 0 Myelocytes % (Manual) 0 Promyelocytes % (Manual) 0 Blast Cells % (Manual) 0 Reactive Lymphocytes 0 Platelet Estimate Adequate B-Type Natriuretic Peptide 186.92 0-100 pg/mL Test 01/18/25 00:00 Range/Units Urine Color Light-yellow Yellow Urine Clarity Clear Clear Urine pH 5.5 5.0-9.0 Urine Specific [place] 1.021 1.001-1.035 Urine Protein Negative Negative Urine Ketones 2+ H Negative Urine Blood Trace H Negative /uL Urine Nitrite Negative Negative Urine Bilirubin Negative Negative Urine Urobilinogen 2 H Negative mg/dL Urine Leukocyte Esterase Negative Negative /uL Urine RBC 2 0 - 4 /hpf Urine Microscopic WBC 2 0-5 /HPF Urine Squamous Epithelial Cells Few <5 /hpf Urine Bacteria None seen None Seen /hpf Urine Mucus Few None Seen Urine Glucose Normal Normal mg/dL Urine Opiates Screen Neg NEGATIVE Urine Fentanyl Screen Neg NEGATIVE Urine Barbiturates Screen Neg NEGATIVE Urine Phencyclidine Screen Neg NEGATIVE Urine Amphetamines Screen Neg NEGATIVE Urine Benzodiazepines Screen Neg NEGATIVE Urine Cocaine Screen Neg NEGATIVE Urine Cannabinoids Screen Neg NEGATIVE PROCEDURE(s): CXRP - CHEST PORTABLE REASON: left sided chest pain ORDER NUMBER(s): [id number], ACCESSION NUMBER(s): [id number] CHEST RADIOGRAPH Indication: left sided chest pain Technique: Single frontal view of the chest was obtained COMPARISON: XY CHEST PORTABLE on DOS: 10/30/23, XY CHEST PORTABLE on DOS: 08/31/23, CHEST PORTABLE on DOS: 02/27/20 FINDINGS: Lines and Tubes: None Lungs: Clear Pleura: No effusion. No pneumothorax. Cardiomediastinal contours: Unremarkable Bones: Unremarkable IMPRESSION: No acute disease. Assessment AFib with RVR now in sinus rhythm Acute coronary syndrome Hypertension CAD with hx ?AK Thyroid disease Plan/Recommendation ( ): 1. AFib with RVR, now in sinus rhythm * Chads Vasc score 4, HAS BLED 2 * Rate control with metoprolol tartrate 25 mg b.i.d.. * Therapeutic Lovenox * Replete electrolytes. Magnesium oxide 400 b.i.d. 2. Chest pain to rule out ACS, Rule out progressive CAD * Continue to monitor on telemetry * Trend troponin * Echocardiogram pending * Close cardiac surveillance This medical document was created using an electronic medical record system with voice recognition software and computerized dictation system. Although this document has been carefully reviewed, there might still be some phonetic and typographical errors. Occasional wrong-word or ``sound-alike substitutions may have occurred due to the inherent limitations of voice recognition software. These areas are purely typographical due to imperfections of the software programs and do not reflect any compromise in the patient's medical care. Please read the chart carefully and recognize, using context, where these substitutions have occurred. Plan discussed with: Patient Plan discussed with: Patient NYHA Physical activity limitations: NA Date of Service: Jan 19, 2025 Billing Provider: DORIS MCDONALD MD Cardiology Common Codes: CONSULT ONLY Cardiology Consultation Codes: [id number] CONSULT <60MIN SHIRA WILCOX GLAUCOMA SPECIALIST Jan 19, 2025 18:54
[2025-01-19] MEDS: MAGNESIUM SULFATE 1GM/100ML 100 ML IV SCH (18:57)
--- NOTE | 2025-01-19 19:03 | DVHSR ---
APPROVED REPORT EXAM: Two-dimensional and M-mode echocardiogram with Doppler and color Doppler. Blood Pressure: 148/70 mmHg INDICATION Chest Pain RISK FACTORS Height: 5'2", Weight: 112 DIMENSIONS LVDd3.9 (3.8-5.7cm)LA (2D)4.0 (1.9-4.0cm)Aortic Root3.2 (2.0-3.7cm) LVDs2.6 (2.5-4.0cm)LA (MM) (1.9-4.0cm)Aortic Cusp Exc1.6 (1.5-2.0cm) EF (%) 60.0 (55-70%)Rt. Atrium3.7 (1.9-4.0cm)Asc. Aorta cm IVSd0.8 (0.7-1.1cm)RV (D)3.0 (1.8-2.4cm) PWd1.0 (0.7-1.1cm) Mitral Valve MitralMitral Stenosis E wave0.92m/sMV Mean GR.mmHg A wave1.29m/sMV Peak GR.mmHg E/A ratio0.72D MVAcm2 DECEL [id number] 1/2 Timems Aortic Valve Aortic ValveAortic Stenosis V10.71m/Mariana Mean GR.2mmHg V21.01m/Mariana Peak GR.4mmHg LVOT Diameter1.9 (1.8-2.4cm)Doppler AVA1.99cm2 Pulmonic Valve V20.55m/s Tricuspid Valve TR Velocity2.88m/s [id number] Conclusion MILD LVH AND MILD LV DIASTOLIC DYSFUNCTION LV EF IS 60% VERY HEAVILY CALCIFIED MITRAL LEAFLETS MODERATELY SEVERE MR MODERATELY DILATED LA CALCIFIED AORTIC LEAFLETS AORTIC SCLEROSIS MODERATE DEGREE PULMONARY HYPERTENSION RVSP IS 48 MM OF HG AND IS HIGH NO EFFUSION
[2025-01-19] MEDS: HYDROcodone-ACET 5/325MG TAB PO PRN (21:07)
[2025-01-19] MEDS: MAGNESIUM OXIDE 400 MG TAB PO SCH (21:07)
[2025-01-19] MEDS: ENOXAPARIN SOD 60 MG/0.6 ML SYRINGE SC SCH (21:07)
--- NOTE | 2025-01-19 22:59 | DVHINCON2 ---
Date Seen: Jan 19, [address] Kenny Reason for Consultation AFib with RVR, Chest pain History of Present Illness This is an 84-year-old female with a past medical history of AFib, hyperlipidemia, hypertension, dementia, CAD, and thyroid disease who presented to the emergency department via EMS with a complaint of chest pain. Patient reported sudden onset of severe chest pain rated 10/10 that began yesterday morning, with radiation to her left arm. EMS recorded hypotension with a systolic blood pressure of 60 mmHg and tachycardia with heart rates 150-160 beats per minute consistent with atrial fibrillation with rapid ventricular response. In the emergency department, the patient remained in AFib with RVR and received 500 mL normal saline bolus. Upon assessment, she currently denies chest pain or shortness of breath. Initial 12 lead ECG showed AFib with RVR but a repeat ECG revealed normal sinus rhythm. Serial troponin levels were positive and trending upward from 11, 43, 148, and the most recent lead to 286. Her CHADS-VASc score is 4 and HAS- BLED score is 2. The patient is alert and oriented but somehow poor historian. Chest x-ray showed NAD. Patient was ad mitted to the hospital. I am asked to consult on this patient. Past Medical History As stated in HPI Past Surgical History Denies Family History: Alcoholism Cerebrovascular accident Diabetes mellitus G8 MOTHER, FH: heart attack Allergies: Coded Allergies: No Known Drug Allergy (Verified Allergy, Unknown, 02/28/20) Home Meds Active Scripts Cephalexin (KEFLEX CAPSULE) 250 Mg Cp, 1 CAP PO TID, #21 CAP Prov:YARED MCINTYRE MD 12/08/23 Reported Medications Famotidine (Famotidine) 20 Mg Tab, 1 DAILY 09/27/24 Levodopa W/Carbidopa (Carbidopa/Levodopa) 1 Tab Tab, 1 TAB PO TID 12/07/23 Venlafaxine Hcl (Venlafaxine Hcl Er) 37.5 Mg Cap, 1 CAP PO DAILY 12/07/23 Oxycodone W/ Acetaminophen (Percocet 5/325MG) 1 Tab Tb, 1 TAB PO BID PRN for PAIN SCALE 7 THRU 10, TAB 10/31/23 Atorvastatin Calcium (ATORVASTATIN CALCIUM) 20 Mg Tab, 1 TAB PO HS, #30 TAB 5 Refills 09/01/23 Gabapentin (Gabapentin) 300 Mg Cap, 300 MG PO BID for 30 Days, MG 09/01/23 Levothyroxine Sodium (Levothyroxine Sodium) 25 Mcg Tab, 25 MCG PO QAM, TAB 09/01/23 Midodrine HCl (Midodrine HCl) 10 Mg Tab, 10 MG PO TID, TAB 02/28/20 Current Medications Current Medications Medications (Trade) Dose Ordered Sig/Judah Route PRN Reason Start Time Stop Time Status Last Admin Aspirin 81 mg DAILY PO 01/19/25 10:00 01/19/25 10:44 Atorvastatin Calcium (Lipitor) 40 mg HS PO 01/18/25 22:00 01/18/25 22:01 Famotidine (Pepcid Tablet) 20 mg DAILY PO 01/19/25 10:00 01/19/25 10:43 Gabapentin (Neurontin Capsule) 300 mg BID PO 01/18/25 22:00 01/19/25 10:43 Carbidopa/Levodopa (Sinemet 25/ 100MG) 1 tab TID PO 01/18/25 22:00 01/19/25 13:46 Levothyroxine Sodium (Synthroid Tablet) 25 mcg QAM PO 01/19/25 07:00 01/19/25 06:04 Midodrine (Proamatine Tablet) 10 mg TID PO 01/18/25 22:00 01/18/25 22:01 Venlafaxine HCl (Effexor Xr) 37.5 mg DAILY PO 01/19/25 10:00 01/19/25 10:44 Acetaminophen/ Hydrocodone Bitart ([place] 5/325MG Tab) 1 tab Q6HPRN PRN PO MILD PAIN (1-3 PAIN SCALE) 01/18/25 20:30 01/19/25 18:09 DC Acetaminophen/ Hydrocodone Bitart ([place] 5/325MG Tab) 1 tab Q6HPRN PRN PO MILD PAIN (1-3 PAIN SCALE) 01/18/25 20:45 01/19/25 18:12 DC Hydralazine HCl (Apresoline Injection) 10 mg Q6HP PRN IV SBP>160 01/19/25 18:00 01/19/25 18:13 Acetaminophen/ Hydrocodone Bitart ([place] 5/325MG Tab) 1 tab Q6HPRN PRN PO MODERATE PAIN (4-6 PAIN SCALE) 01/19/25 18:15 Magnesium Sulfate/ Dextrose 100 ml @ 100 mls/hr Q1HR IV 01/19/25 19:00 01/19/25 20:59 Metoprolol Tartrate (Lopressor Tablet) 25 mg BID PO 01/19/25 22:00 Magnesium Oxide (Mag-Ox Tablet) 400 mg BID PO 01/19/25 22:00 Enoxaparin Sodium (Lovenox) 50 mg Q12HR SC 01/19/25 22:00 Review of Systems Constitutional: No symptom reported Ears, Nose, & Throat: No symptom reported Eyes: No symptom reported Neurological: No symptoms reported Pulmonary/Respiratory: No symptom reported Cardiovascular: Initially chest pain, currently denies chest pain or palpitations Gastrointestinal: No symptom reported Genitourinary: No symptom reported Musculoskeletal: No symptom reported Skin: No symptom reported Psychiatric: No symptom reported Endocrine: No symptom reported Hemotologic/Lymphatic: No symptom reported Vital Signs Vital Signs Date Time Temp Pulse Resp B/P (MAP) Pulse Ox O2 Delivery O2 Flow Rate FiO2 01/19/25 18:54 94 109/72 01/19/25 17:04 99.3 16 93 99.3 01/19/25 08:00 Room Air* 0 21 Physical Exam GENERAL: Alert and oriented x 3. No acute distress. Elderly appearing. EYES: PERRL, EOMI. Anicteric. HENT: Moist mucous membranes. LUNGS: Clear to auscultation bilaterally. CARDIOVASCULAR: Regular rate and rhythm. ABDOMEN: Soft, nontender and nondistended. EXTREMITIES: No edema. NEUROLOGIC: No focal neurological deficits. SKIN: Warm, dry. Labs/Diagnostic Data Labs Test 01/19/25 06:03 01/18/25 17:47 01/18/25 15:07 01/18/25 11:53 Range/Units White Blood Count 4.6 # 4.4-10.8 10^3/uL Red Blood Count 3.79 L 4.0-5.20 10^6/uL Hemoglobin 11.9 #L 12.2-16.2 g/dL Hematocrit 35.1 #L 36.0-46.0 % Mean Corpuscular Volume 92.6 80.0-100.0 fL Mean Corpuscular Hemoglobin 31.4 28.0-32.0 pg Mean Corpuscular Hemoglobin Concent 33.9 32.0-36.0 g/dL Red Cell Distribution Width 14.8 H 11.8-14.3 % Platelet Count 156 140-450 10^3/uL Mean Platelet Volume 10.1 6.9-10.8 fL Neutrophils (%) (Auto) 44.1 37.0-80.0 % Lymphocytes (%) (Auto) 44.1 10.0-50.0 % Monocytes (%) (Auto) 7.3 0.0-12.0 % Eosinophils (%) (Auto) 4.0 0.0-7.0 % Basophils (%) (Auto) 0.5 0.0-2.0 % Neutrophils # (Auto) 2.0 1.6-8.6 10 ^3/uL Lymphocytes # (Auto) 2.0 0.4-5.4 10 ^3/uL Monocytes # (Auto) 0.3 0-1.3 10 ^3/uL Eosinophils # (Auto) 0.2 0-0.8 10 ^3/uL Basophils # (Auto) 0 0-0.2 10 ^3/uL Nucleated Red Blood Cells 0.1 % Sodium Level 144 136-145 mmol/L Potassium Level 3.6 3.5-5.1 mmol/L Chloride Level 110 H 98-107 mmol/L Carbon Dioxide Level 23 20-31 mmol/L Anion Gap 11 5-15 Blood Urea Nitrogen 22 9-23 mg/dL Creatinine 0.64 0.550-1.02 mg/dL Glomerular Filtration Rate Calc 88 >90 mL/min BUN/Creatinine Ratio 34.4 H 10.0-20.0 Serum Glucose 82 74-106 mg/dL Calcium Level 8.6 L 8.7-10.4 mg/dL Magnesium Level 1.7 1.6-2.6 mg/dL Troponin I High Sensitivity 286 *H </=34 ng/L Triglycerides Level 108 < 150 mg/dL Cholesterol Level 156 < 200 mg/dL LDL Cholesterol 77 < 100 mg/dL HDL Cholesterol 58 40-59 mg/dL Thyroid Stimulating Hormone (TSH) 0.67 0.55-4.78 uIU/mL Free Thyroxine (T4) Calculated 1.12 0.89-1.76 ng/dL Differential Total Cells Counted 100.0 100 Neutrophils % (Manual) 79 37.0-80.0 Band Neutrophils % (Manual) 0 Lymphocytes % (Manual) 16 10.0-50.0 Monocytes % (Manual) 2 0-12 Eosinophils % (Manual) 3 0-7 Basophils % (Manual) 0 0.0-2.0 Metamyelocytes % (manual) 0 Myelocytes % (Manual) 0 Promyelocytes % (Manual) 0 Blast Cells % (Manual) 0 Reactive Lymphocytes 0 Platelet Estimate Adequate B-Type Natriuretic Peptide 186.92 0-100 pg/mL Test 01/18/25 00:00 Range/Units Urine Color Light-yellow Yellow Urine Clarity Clear Clear Urine pH 5.5 5.0-9.0 Urine Specific Herman 1.021 1.001-1.035 Urine Protein Negative Negative Urine Ketones 2+ H Negative Urine Blood Trace H Negative /uL Urine Nitrite Negative Negative Urine Bilirubin Negative Negative Urine Urobilinogen 2 H Negative mg/dL Urine Leukocyte Esterase Negative Negative /uL Urine RBC 2 0 - 4 /hpf Urine Microscopic WBC 2 0-5 /HPF Urine Squamous Epithelial Cells Few <5 /hpf Urine Bacteria None seen None Seen /hpf Urine Mucus Few None Seen Urine Glucose Normal Normal mg/dL Urine Opiates Screen Neg NEGATIVE Urine Fentanyl Screen Neg NEGATIVE Urine Barbiturates Screen Neg NEGATIVE Urine Phencyclidine Screen Neg NEGATIVE Urine Amphetamines Screen Neg NEGATIVE Urine Benzodiazepines Screen Neg NEGATIVE Urine Cocaine Screen Neg NEGATIVE Urine Cannabinoids Screen Neg NEGATIVE Assessment AFib with RVR now in sinus rhythm. Acute coronary syndrome. Hypertension. CAD with hx ?GA. Thyroid disease. Plan/Recommendation I agree with your ongoing assessment and care of plan. Patient has been seen by Stefania Cisneros NP on my behalf, her and I discussed the plan with the patient. Chads Vasc score 4, HAS BLED 2. Rate control with metoprolol tartrate 25 mg b.i.d.. Therapeutic Lovenox. Replete electrolytes. Magnesium oxide 400 b.i.d. Continue to monitor on telemetry. Trend troponin. Echocardiogram pending. Close cardiac surveillance. Additional plan as per the hospital course. Plan discussed with: Patient NYHA Physical activity limitations: NA Date of Service: Jan 19, 2025 Billing Provider: DORIS MCDONALD MD Cardiology Common Codes: [id number] INP/OBS CARE (High) Cardiology Consultation Codes: [id number] CONSULT <60MIN DORIS MCDONALD MD Jan 19, 2025 19:05
[2025-01-20] VITALS (9 sets, daily range): BP systolic 100–135; BP diastolic 48–75; PULSE 63–89; RESP 14–17; TEMP 98–98.7; O2SAT 91–94
[2025-01-20] MEDS: METOPROLOL TARTRATE 25 MG TAB PO SCH
[2025-01-20] MEDS: MAGNESIUM SULFATE 1GM/100ML 100 ML IV SCH (11:00)
--- NOTE | 2025-01-20 11:44 | DVHPN2 ---
Reviewed: Care Plan, H&P, Labs, Medications, Previous Orders, Radiology Changes from previous H/P or p: No Changes Cardiovascular: Chest Pain Objective Vitals Vital Signs Date Time Temp Pulse Resp B/P (MAP) Pulse Ox O2 Delivery O2 Flow Rate FiO2 01/20/25 09:00 98.5 78 16 103/61 (75) 94 98.5 01/20/25 08:00 Room Air* 0 21 Intake/Output Intake and Output 01/20/25 07:00 Intake Total 602 ml Balance 602 ml Intake Oral 602 ml # Voids 4 # Bowel Movements 1 Medications Current Medications Medications Dose Ordered Sig/Judah Route Start Time Stop Time Status Last Admin Dose Admin Aspirin 81 mg DAILY PO 01/19/25 10:00 01/20/25 08:22 81 MG Atorvastatin Calcium 40 mg HS PO 01/18/25 22:00 01/19/25 21:06 40 MG Morphine Sulfate 2 mg Q30MP PRN IV 01/18/25 15:45 Acetaminophen 650 mg Q6HP PRN PO 01/18/25 15:45 Ondansetron HCl 4 mg Q4HP PRN IV 01/18/25 15:45 Nitroglycerin 0.4 mg Q5MINP PRN SL 01/18/25 15:45 Famotidine 20 mg DAILY PO 01/19/25 10:00 01/20/25 08:22 20 MG Gabapentin 300 mg BID PO 01/18/25 22:00 01/20/25 08:22 300 MG Carbidopa/Levodopa 1 tab TID PO 01/18/25 22:00 01/20/25 05:19 1 TAB Levothyroxine Sodium 25 mcg QAM PO 01/19/25 07:00 01/20/25 05:19 25 MCG Midodrine 10 mg TID PO 01/18/25 22:00 01/18/25 22:01 10 MG Venlafaxine HCl 37.5 mg DAILY PO 01/19/25 10:00 01/20/25 08:22 37.5 MG Hydralazine HCl 10 mg Q6HP PRN IV 01/19/25 18:00 01/19/25 18:13 10 MG Acetaminophen/ Hydrocodone Bitart 1 tab Q6HPRN PRN PO 01/19/25 18:15 01/20/25 05:32 1 TAB Metoprolol Tartrate 25 mg BID PO 01/19/25 22:00 01/20/25 00:00 25 MG Magnesium Oxide 400 mg BID PO 01/19/25 22:00 01/20/25 08:22 400 MG Enoxaparin Sodium 50 mg Q12HR SC 01/19/25 22:00 01/20/25 08:23 50 MG Laboratory Results Laboratory Tests 01/19/25 06:03 Chemistry Test 01/20/25 05:36 Magnesium Level 1.9 mg/dL (1.6-2.6) Urinalysis Test 01/18/25 00:00 Urine Color Light-yellow (Yellow) Urine Clarity Clear (Clear) Urine pH 5.5 (5.0-9.0) Urine Specific [place] 1.021 (1.001-1.035) Urine Protein Negative (Negative) Urine Ketones 2+ (Negative) H Urine Blood Trace /uL (Negative) H Urine Nitrite Negative (Negative) Urine Bilirubin Negative (Negative) Urine Urobilinogen 2 mg/dL (Negative) H Urine Leukocyte Esterase Negative /uL (Negative) Urine RBC 2 /hpf (0 - 4) Urine Microscopic WBC 2 /HPF (0-5) Urine Squamous Epithelial Cells Few /hpf (<5) Urine Bacteria None seen /hpf (None Seen) Urine Mucus Few (None Seen) Urine Glucose Normal mg/dL (Normal) Labs and/or images reviewed: Labs reviewed by me, Image(s) reviewed by me Assessment/Plan Assessment/Plan Acute chest pain rule out coronary artery disease Non ST-elevation [place] with a troponin to 48: Treatment per ACS protocol consult for Cardiology Dr. Doty Acute exacerbation of chronic back pain L-spine x-ray shows DJD changes, Grubbs Chronic compression fractures of T11, T12, L2, and L5. No retropulsion. Recurrent falls History of [place] AFib with RVR, metoprolol tartrate 25 mg p.o. b.i.d., magnesium oxide 400 mg p.o. b.i.d., therapeutic Lovenox Depression: Effexor Hypercholesterolemia lipitor Hypothyroidism : Synthroid Chronic hypotension: Midodrine Parkinson's: Sinemet Dementia Plan discussed with: Patient My Orders Orders - BLAKE LINDA MD Procedure Category Date Status Time * Cardiology Consult CONS 01/19/25 Transmitted 12:48 Date of Service: Jan 20, 2025 Billing Provider: BLAKE LINDA MD Common Visit Codes: [id number] INP/OBS CARE(HIGH) BLAKE LINDA MD Jan 20, 2025 11:44
--- NOTE | 2025-01-20 12:49 | DVHPN2 ---
Consult Progress Note Subjective Patient reports: No new complaints, Feels better Review of Systems: HEENT:Normal, CVS:Normal, RESPIRATORY:Normal Other Systems: No cardiac events reported Remained in sinus rhythm Objective vital signs Vital Sign Date Time Temp Pulse Resp B/P (MAP) Pulse Ox O2 Delivery O2 Flow Rate FiO2 01/20/25 09:00 98.5 78 16 103/61 (75) 94 98.5 01/20/25 08:00 Room Air* 0 21 Total Intake and Output 01/19/25 01/19/25 01/20/25 15:00 23:00 07:00 Intake Total 2 ml 600 ml Balance 2 ml 600 ml medications Current Medications Medications Dose Ordered Sig/Judah Route Start Time Stop Time Status Last Admin Dose Admin Aspirin 81 mg DAILY PO 01/19/25 10:00 01/20/25 08:22 81 MG Atorvastatin Calcium 40 mg HS PO 01/18/25 22:00 01/19/25 21:06 40 MG Morphine Sulfate 2 mg Q30MP PRN IV 01/18/25 15:45 Acetaminophen 650 mg Q6HP PRN PO 01/18/25 15:45 Ondansetron HCl 4 mg Q4HP PRN IV 01/18/25 15:45 Nitroglycerin 0.4 mg Q5MINP PRN SL 01/18/25 15:45 Famotidine 20 mg DAILY PO 01/19/25 10:00 01/20/25 08:22 20 MG Gabapentin 300 mg BID PO 01/18/25 22:00 01/20/25 08:22 300 MG Carbidopa/Levodopa 1 tab TID PO 01/18/25 22:00 01/20/25 05:19 1 TAB Levothyroxine Sodium 25 mcg QAM PO 01/19/25 07:00 01/20/25 05:19 25 MCG Midodrine 10 mg TID PO 01/18/25 22:00 01/18/25 22:01 10 MG Venlafaxine HCl 37.5 mg DAILY PO 01/19/25 10:00 01/20/25 08:22 37.5 MG Hydralazine HCl 10 mg Q6HP PRN IV 01/19/25 18:00 01/19/25 18:13 10 MG Acetaminophen/ Hydrocodone Bitart 1 tab Q6HPRN PRN PO 01/19/25 18:15 01/20/25 05:32 1 TAB Metoprolol Tartrate 25 mg BID PO 01/19/25 22:00 01/20/25 00:00 25 MG Magnesium Oxide 400 mg BID PO 01/19/25 22:00 01/20/25 08:22 400 MG Enoxaparin Sodium 50 mg Q12HR SC 01/19/25 22:00 01/20/25 08:23 50 MG Examination: GENERAL:Normal, LUNGS:Normal, CVS:Normal laboratory and microbiology Laboratory Tests 01/19/25 06:03 Test 01/19/25 06:03 Range/Units Serum Glucose 82 74-106 mg/dL Problem List/Assessment/Plan Problem List/Assessment/Plan AFib with RVR now in sinus rhythm Acute coronary syndrome Hypertension CAD with hx ?PR Thyroid disease Plan/Recommendation ( ): The patient presented with acute chest pain and acute transient atrial fibrillation with rapid ventricular response. She was successfully converted to sinus rhythm and has remained in sinus rhythm. She was started on low-dose metoprolol 25 mg daily and magnesium oxide 400 mg b.i.d.. Serial troponins were positive but downtrending. Transthoracic echocardiogram showed a preserved ejection fraction of 60% and moderate pulmonary hypertension with an estimated are RVSP of 48 mmHg. Given a CHADS-VASc score of four and HAS-Bled score of two, she was started on low-dose anticoagulation with apixaban 2.5 mg twice daily. She will continue on beta sotero therapy and it's advised to follow-up with a washer blanket in the outpatient setting for ongoing management. This medical document was created using an electronic medical record system with voice recognition software and computerized dictation system. Although this document has been carefully reviewed, there might still be some phonetic and typographical errors. Occasional wrong-word or ``sound-alike substitutions may have occurred due to the inherent limitations of voice recognition software. These areas are purely typographical due to imperfections of the software programs and do not reflect any compromise in the patient's medical care. Please read the chart carefully and recognize, using context, where these substitutions have occurred. Plan discussed with: Patient Plan discussed with: Patient NYHA Plan discussed with: Patient Date of Service: Jan 20, 2025 Billing Provider: DORIS MCDONALD MD Common Visit Codes: CONSULT ONLY Consultation Codes: [id number] CONSULT <45MIN SHIRA WILCOX [facility] Jan 20, 2025 12:49
--- NOTE | 2025-01-20 13:36 | ECG ---
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
[2025-01-20] MEDS: APIXABAN 2.5 MG TAB PO SCH (21:03)
--- NOTE | 2025-01-20 23:30 | DVHPN2 ---
Consult Progress Note Subjective Patient reports: No new complaints, Feels better Other Systems: Patient was seen and evaluated in follow up. No cardiac events reported. Patient remained in sinus rhythm. TROP 101. Telemetry reviewed. Objective vital signs Vital Sign Date Time Temp Pulse Resp B/P (MAP) Pulse Ox O2 Delivery O2 Flow Rate FiO2 01/20/25 09:00 98.5 78 16 103/61 (75) 94 98.5 01/20/25 08:00 Room Air* 0 21 Total Intake and Output 01/19/25 01/19/25 01/20/25 15:00 23:00 07:00 Intake Total 2 ml 600 ml Balance 2 ml 600 ml medications Current Medications Medications Dose Ordered Sig/Judah Route Start Time Stop Time Status Last Admin Dose Admin Aspirin 81 mg DAILY PO 01/19/25 10:00 01/20/25 08:22 81 MG Atorvastatin Calcium 40 mg HS PO 01/18/25 22:00 01/19/25 21:06 40 MG Morphine Sulfate 2 mg Q30MP PRN IV 01/18/25 15:45 Acetaminophen 650 mg Q6HP PRN PO 01/18/25 15:45 Ondansetron HCl 4 mg Q4HP PRN IV 01/18/25 15:45 Nitroglycerin 0.4 mg Q5MINP PRN SL 01/18/25 15:45 Famotidine 20 mg DAILY PO 01/19/25 10:00 01/20/25 08:22 20 MG Gabapentin 300 mg BID PO 01/18/25 22:00 01/20/25 08:22 300 MG Carbidopa/Levodopa 1 tab TID PO 01/18/25 22:00 01/20/25 05:19 1 TAB Levothyroxine Sodium 25 mcg QAM PO 01/19/25 07:00 01/20/25 05:19 25 MCG Midodrine 10 mg TID PO 01/18/25 22:00 01/18/25 22:01 10 MG Venlafaxine HCl 37.5 mg DAILY PO 01/19/25 10:00 01/20/25 08:22 37.5 MG Hydralazine HCl 10 mg Q6HP PRN IV 01/19/25 18:00 01/19/25 18:13 10 MG Acetaminophen/ Hydrocodone Bitart 1 tab Q6HPRN PRN PO 6/21/25 18:15 01/20/25 05:32 1 TAB Metoprolol Tartrate 25 mg BID PO 01/19/25 22:00 01/20/25 00:00 25 MG Magnesium Oxide 400 mg BID PO 01/19/25 22:00 01/20/25 08:22 400 MG Apixaban 2.5 mg BID PO 01/20/25 22:00 UNV Examination: GENERAL:Normal, HEENT:Normal, NECK:Normal, LUNGS:Normal, CVS:Normal, ABDOMEN:Normal, MSK:Normal laboratory and microbiology Laboratory Tests 01/19/25 06:03 Test 01/19/25 06:03 Range/Units Serum Glucose 82 74-106 mg/dL Problem List/Assessment/Plan Problem List/Assessment/Plan Problem List/Assessment/Plan AFib with RVR now in sinus rhythm. Acute coronary syndrome. Hypertension. CAD with hx ?MD. Thyroid disease. Plan/Recommendation Continued all current supportive medical care. Patient has been seen by Stefania Cisneros NP on my behalf, her and I discussed the plan with the patient. The patient presented with acute chest pain and acute transient atrial fibrillation with rapid ventricular response. She was successfully converted to sinus rhythm and has remained in sinus rhythm. She was started on low-dose metoprolol 25 mg daily and magnesium oxide 400 mg b.i.d.. Serial troponins were positive but downtrending. Transthoracic echocardiogram showed a preserved ejection fraction of 60% and moderate pulmonary hypertension with an estimated are RVSP of 48 mmHg. Given a CHADS-VASc score of four and HAS-Bled score of two, she was started on low-dose anticoagulation with apixaban 2.5 mg twice daily. She will continue on beta sotero therapy and it's advised to follow-up with a general counsel in the outpatient setting for ongoing management Additional plan as per the hospital course. Plan discussed with: Patient Date of Service: Jan 20, 2025 Billing Provider: DORIS MCDONALD MD Cardiology Common Codes: [id number] INP/OBS CARE (High) Cardiology Consultation Codes: [id number] CONSULT <45MIN DORIS MCDONALD MD Jan 20, 2025 13:34
[2025-01-21] VITALS (9 sets, daily range): BP systolic 108–149; BP diastolic 51–68; PULSE 57–66; RESP 14–18; TEMP 97.6–98.6; O2SAT 90–94
--- NOTE | 2025-01-21 12:23 | ECG ---
[facility] Test Date: 2025-01-18 Test Time: 11:20:14 Pat Name: MARIE BRANDT Department: ED Room: 0290T A Gender: F Field Rep: gp : 1940 Requested By: LAURA FERRIS Order Number: [id number] Reading MD: Tez Chamberlain Measurements Intervals [place] Rate: 156 P: 0 VA: 0 QRS: -23 QRSD: 85 T: 227 QT: 290 QTc: 467 Interpretive Statements Atrial fibrillation with rapid V-rate Ventricular premature complex Borderline left axis deviation Anterior infarct, old Repolarization abnormality, prob rate related Electronically Signed On 01-22-2025 22:34:29 PDT by Tez Chamberlain Please click the below link to view image of tracing.
[2025-01-21] MEDS ORDERED: APIX2.5T PO (15:20)
[2025-01-21] MEDS ORDERED: MAGN400C4 PO (15:20)
[2025-01-21] MEDS ORDERED: METO25TA5 PO (15:20)
--- NOTE | 2025-01-21 15:25 | DVHDS2 ---
Discharge Summary Date of Admission Jan 18, 2025 at 15:34 Date of Discharge: Jan 21, 2025 Admitting Diagnosis Generalized weakness Wounds: None Labs/Diagnostic Data: Laboratory Results Test 01/20/25 05:36 01/19/25 06:03 01/18/25 15:07 01/18/25 11:53 Magnesium Level 1.9 mg/dL (1.6-2.6) Troponin I High Sensitivity 101 ng/L (</=34) White Blood Count 4.6 10^3/uL (4.4-10.8) Red Blood Count 3.79 10^6/uL (4.0-5.20) Hemoglobin 11.9 g/dL (12.2-16.2) Hematocrit 35.1 % (36.0-46.0) Mean Corpuscular Volume 92.6 fL (80.0-100.0) Mean Corpuscular Hemoglobin 31.4 pg (28.0-32.0) Mean Corpuscular Hemoglobin Concent 33.9 g/dL (32.0-36.0) Red Cell Distribution Width 14.8 % (11.8-14.3) Platelet Count 156 10^3/uL (140-450) Mean Platelet Volume 10.1 fL (6.9-10.8) Neutrophils (%) (Auto) 44.1 % (37.0-80.0) Lymphocytes (%) (Auto) 44.1 % (10.0-50.0) Monocytes (%) (Auto) 7.3 % (0.0-12.0) Eosinophils (%) (Auto) 4.0 % (0.0-7.0) Basophils (%) (Auto) 0.5 % (0.0-2.0) Neutrophils # (Auto) 2.0 10 ^3/uL (1.6-8.6) Lymphocytes # (Auto) 2.0 10 ^3/uL (0.4-5.4) Monocytes # (Auto) 0.3 10 ^3/uL (0-1.3) Eosinophils # (Auto) 0.2 10 ^3/uL (0-0.8) Basophils # (Auto) 0 10 ^3/uL (0-0.2) Nucleated Red Blood Cells 0.1 % Sodium Level 144 mmol/L (136-145) Potassium Level 3.6 mmol/L (3.5-5.1) Chloride Level 110 mmol/L (98-107) Carbon Dioxide Level 23 mmol/L (20-31) Anion Gap 11 (5-15) Blood Urea Nitrogen 22 mg/dL (9-23) Creatinine 0.64 mg/dL (0.550-1.02) Glomerular Filtration Rate Calc 88 mL/min (>90) BUN/Creatinine Ratio 34.4 (10.0-20.0) Serum Glucose 82 mg/dL (74-106) Calcium Level 8.6 mg/dL (8.7-10.4) Triglycerides Level 108 mg/dL (< 150) Cholesterol Level 156 mg/dL (< 200) LDL Cholesterol 77 mg/dL (< 100) HDL Cholesterol 58 mg/dL (40-59) Thyroid Stimulating Hormone (TSH) 0.67 uIU/mL (0.55-4.78) Free Thyroxine (T4) Calculated 1.12 ng/dL (0.89-1.76) Differential Total Cells Counted 100.0 (100) Neutrophils % (Manual) 79 (37.0-80.0) Band Neutrophils % (Manual) 0 Lymphocytes % (Manual) 16 (10.0-50.0) Monocytes % (Manual) 2 (0-12) Eosinophils % (Manual) 3 (0-7) Basophils % (Manual) 0 (0.0-2.0) Metamyelocytes % (manual) 0 Myelocytes % (Manual) 0 Promyelocytes % (Manual) 0 Blast Cells % (Manual) 0 Reactive Lymphocytes 0 Platelet Estimate Adequate B-Type Natriuretic Peptide 186.92 pg/mL (0-100) Test 01/18/25 00:00 Urine Color Light-yellow (Yellow) Urine Clarity Clear (Clear) Urine pH 5.5 (5.0-9.0) Urine Specific [place] 1.021 (1.001-1.035) Urine Protein Negative (Negative) Urine Ketones 2+ (Negative) Urine Blood Trace /uL (Negative) Urine Nitrite Negative (Negative) Urine Bilirubin Negative (Negative) Urine Urobilinogen 2 mg/dL (Negative) Urine Leukocyte Esterase Negative /uL (Negative) Urine RBC 2 /hpf (0 - 4) Urine Microscopic WBC 2 /HPF (0-5) Urine Squamous Epithelial Cells Few /hpf (<5) Urine Bacteria None seen /hpf (None Seen) Urine Mucus Few (None Seen) Urine Glucose Normal mg/dL (Normal) Urine Opiates Screen Neg (NEGATIVE) Urine Fentanyl Screen Neg (NEGATIVE) Urine Barbiturates Screen Neg (NEGATIVE) Urine Phencyclidine Screen Neg (NEGATIVE) Urine Amphetamines Screen Neg (NEGATIVE) Urine Benzodiazepines Screen Neg (NEGATIVE) Urine Cocaine Screen Neg (NEGATIVE) Urine Cannabinoids Screen Neg (NEGATIVE) Other Laboratory Tests 01/19/25 06:03 Brief Hx & Hospital Course: Year-old female with a history of [place] AFib with RVR depression hypercholesterolemia hypothyroidism chronic hypotension Parkinson's dementia chronic 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 Found to have non ST-elevation [place] with a troponin 48 treated per ACS protocol cardiology consult by Dr. Doty patient was found to be in AFib with RVR started on metoprolol tartrate magnesium oxide urine and Eliquis. Patient has significantly improved and being discharged home. Reviewed all the home medications. New medications magnesium oxide Eliquis and metoprolol tartrate transmitted to pharmacy. Spoke with the patient's grandson Silvestre and he is comfortable taking the patient home. Patient will be discharged back to [facility] Consults/Reason for consult Cardiology Dr. Doty Operations or Procedures None Condition at Discharge: Fair Final Diagnosis/Problems List Acute chest pain rule out coronary artery disease Non ST-elevation [place] with a troponin to 48: Treatment per ACS protocol consult for Cardiology Dr. Doty Acute exacerbation of chronic back pain L-spine x-ray shows DJD changes, [place] Chronic compression fractures of T11, T12, L2, and L5. No retropulsion. Recurrent falls History of [place] AFib with RVR, metoprolol tartrate 25 mg p.o. b.i.d., magnesium oxide 400 mg p.o. b.i.d., therapeutic Lovenox Depression: Effexor Hypercholesterolemia lipitor Hypothyroidism : Synthroid Chronic hypotension: Midodrine Parkinson's: Sinemet Dementia Discharge Disposition: Home with Health Services Discharge Instruct/Medications Diet: Cardiac 2g Na,low cholest Activity: Light activity Follow Up/Referral: Resume all previous home medications Use new medications as prescribed Follow up with the primary doc Follow up with the food safety director Dr. Doty in two weeks Medications: Eliquis Metoprolol tartrate Magnesium oxide [facility] to [facility] (Time taken for discharge summary 35 minutes) Discharge Statement: "Patient was advised to return to the ER or call 911 if any headaches, dizziness, shortness of breath, chest pain, abdominal pain, bleeding, fevers, or worsening of medical condition. Patient was counseled about treatment plan, medications, possible side effects, patientverbalized understanding. All questions were answered to the best of my ability. This discharge took greater then 30 minutes in planning, reviewing documentation, counseling the patient, and discussing with other team members." ASSESSMENT ASSESSMENT Hospital Course Improved Assessment Acute chest pain rule out coronary artery disease Non ST-elevation [place] with a troponin to 48: Treatment per ACS protocol consult for Cardiology Dr. Doty Acute exacerbation of chronic back pain L-spine x-ray shows DJD changes, [place] Chronic compression fractures of T11, T12, L2, and L5. No retropulsion. Recurrent falls History of [place] AFib with RVR, metoprolol tartrate 25 mg p.o. b.i.d., magnesium oxide 400 mg p.o. b.i.d., therapeutic Lovenox Depression: Effexor Hypercholesterolemia lipitor Hypothyroidism : Synthroid Chronic hypotension: Midodrine Parkinson's: Sinemet Dementia Date of Service: Jan 21, 2025 Billing Provider: BLAKE LINDA MD Common Visit Codes: 23116-EMS/OBS DISCH DAY >30min BLAKE LINDA MD Jan 21, 2025 15:25
--- NOTE | 2025-01-21 22:51 | DVHPN2 ---
Progress Note - Dictate Date Seen: Jan 21, 2025 Medical Necessity Reason Pt with a Central, PICC or Fol: No Subjective Patient was seen and evaluated in follow up. No overnight events. Patient reports feeling better today. She is recommended for outpatient cardiology follow up. Telemetry reviewed. vital signs Vital Sign Date Time Temp Pulse Resp B/P (MAP) Pulse Ox O2 Delivery O2 Flow Rate FiO2 01/21/25 21:00 98.0 60 17 138/67 (90) 93 98.0 01/21/25 08:00 Room Air* 0 21 Total Intake and Output 01/20/25 01/20/25 01/21/25 15:00 23:00 07:00 Intake Total 200 ml 360 ml 100 ml Balance 200 ml 360 ml 100 ml medications Current Medications Medications Dose Ordered Sig/Judah Route Start Time Stop Time Status Last Admin Dose Admin Aspirin 81 mg DAILY PO 01/19/25 10:00 01/21/25 09:33 81 MG Atorvastatin Calcium 40 mg HS PO 01/18/25 22:00 01/21/25 20:58 40 MG Morphine Sulfate 2 mg Q30MP PRN IV 01/18/25 15:45 Acetaminophen 650 mg Q6HP PRN PO 01/18/25 15:45 Ondansetron HCl 4 mg Q4HP PRN IV 01/18/25 15:45 Nitroglycerin 0.4 mg Q5MINP PRN SL 01/18/25 15:45 Famotidine 20 mg DAILY PO 01/19/25 10:00 01/21/25 09:33 20 MG Gabapentin 300 mg BID PO 01/18/25 22:00 01/21/25 20:59 300 MG Carbidopa/Levodopa 1 tab TID PO 01/18/25 22:00 01/21/25 20:58 1 TAB Levothyroxine Sodium 25 mcg QAM PO 01/19/25 07:00 01/21/25 05:04 25 MCG Midodrine 10 mg TID PO 01/18/25 22:00 01/21/25 20:58 10 MG Venlafaxine HCl 37.5 mg DAILY PO 01/19/25 10:00 01/21/25 09:32 37.5 MG Hydralazine HCl 10 mg Q6HP PRN IV 01/19/25 18:00 01/19/25 18:13 10 MG Acetaminophen/ Hydrocodone Bitart 1 tab Q6HPRN PRN PO 01/19/25 18:15 01/21/25 21:04 1 TAB Metoprolol Tartrate 25 mg BID PO 01/19/25 22:00 01/21/25 21:00 25 MG Magnesium Oxide 400 mg BID PO 01/19/25 22:00 01/21/25 20:59 400 MG Apixaban 2.5 mg BID PO 01/20/25 22:00 01/21/25 20:59 2.5 MG objective GENERAL: Alert and oriented x 3. No acute distress. EYES: PERRL, EOMI. Anicteric. HENT: Moist mucous membranes. LUNGS: Clear to auscultation bilaterally. CARDIOVASCULAR: Regular rate and rhythm. ABDOMEN: Soft, non-tender and non-distended. EXTREMITIES: No edema. NEUROLOGIC: No focal neurological deficits. SKIN: Warm, dry. laboratory and microbiology Laboratory Tests 01/19/25 06:03 Test 01/19/25 06:03 Range/Units Serum Glucose 82 74-106 mg/dL Problem List AFib with RVR now in sinus rhythm. Acute coronary syndrome. Hypertension. CAD with hx ?[place]. Thyroid disease. Assessment/Plan Continued all current supportive medical care. Morphine and [place] for pain. Eliquis. Aspirin, Lipitor, Metoprolol. IV Hydralzine for SBP >160. Nitro SL. Additional plan as per the hospital course. Dietary Evaluation Review Comments: Monitor PO intake, lab values, wt trend Expected Outcomes/Goals: To meet >75% estimated needs Fu 3-5 days Plan discussed with: Patient DORIS MCDONALD MD Jan 21, 2025 22:51
[2025-01-22 01:00] VITALS: BP 152/80; PULSE 57; RESP 17; TEMP 98.1; O2SAT 93
[2025-01-22 04:56] VITALS: BP 149/82; PULSE 52; RESP 18; TEMP 98.4; O2SAT 94
[2025-01-22 08:00] VITALS: PULSE 65; RESP 18
[2025-01-22 08:33] VITALS: BP 157/76; PULSE 53; RESP 16; TEMP 98.1; O2SAT 96
[2025-01-22] MEDS ORDERED: MIDO10TA3 PO (09:15)
[2025-01-22] MEDS ORDERED: GABA-1250 PO (09:15)
[2025-01-22] MEDS ORDERED: PERCOT PO (09:15)
[2025-01-22] MEDS ORDERED: ATOR20TA PO (09:15)
[2025-01-22] MEDS ORDERED: FAMO20TA10 PO (09:15)
[2025-01-22] MEDS ORDERED: LEVO-848 PO (09:15)
[2025-01-22] MEDS ORDERED: CARB25TA79 PO (09:15)
--- NOTE | 2025-01-22 23:30 | DVHPN2 ---
Progress Note - Dictate Date Seen: Jan 22, 2025 Medical Necessity Reason Pt with a Central, PICC or Fol: No Subjective Patient was seen and evaluated in follow up. Patient has no new complaints at this time. Patient denies any cardiac symptoms. Patient is cardiac stable for discharge. Telemetry reviewed. vital signs Vital Sign Date Time Temp Pulse Resp B/P (MAP) Pulse Ox O2 Delivery O2 Flow Rate FiO2 01/22/25 08:47 53 159/81 01/22/25 08:33 98.1 16 96 98.1 01/22/25 08:00 Room Air* 0 21 Total Intake and Output 01/21/25 01/21/25 01/22/25 15:00 23:00 07:00 Intake Total 700 ml 300 ml Output Total 300 ml Balance 700 ml 0 ml objective GENERAL: Alert and oriented x 3. No acute distress. EYES: PERRL, EOMI. Anicteric. HENT: Moist mucous membranes. LUNGS: Clear to auscultation bilaterally. CARDIOVASCULAR: Regular rate and rhythm. ABDOMEN: Soft, non-tender and non-distended. EXTREMITIES: No edema. NEUROLOGIC: No focal neurological deficits. SKIN: Warm, dry. laboratory and microbiology Laboratory Tests 01/19/25 06:03 Test 01/19/25 06:03 Range/Units Serum Glucose 82 74-106 mg/dL Problem List AFib with RVR now in sinus rhythm. Acute coronary syndrome. Hypertension. CAD with hx ?[place]. Thyroid disease. Assessment/Plan Continued all current supportive medical care. Morphine and [place] for pain. Eliquis. Aspirin, Lipitor, Metoprolol. IV Hydralzine for SBP >160. Nitro SL. Additional plan as per the hospital course. Dietary Evaluation Review Comments: Monitor PO intake, lab values, wt trend Expected Outcomes/Goals: To meet >75% estimated needs Fu 3-5 days Plan discussed with: Patient DORIS MCDONALD MD Jan 22, 2025 23:30
== END 2025-01-22 09:12 | disposition home health service (06) | DRG 281 ==
LOC: EDBD 11:18 → ER 11:18 → OVERFLOW 15:34 → TELE-WESTW 23:20
PROVIDERS: ADMIT Family Medicine; ATTEND Family Medicine
DX: I21.4 Non-ST elevation (NSTEMI) myocardial infarction (principal); F02.83 Dementia in other diseases classified elsewhere, unspecified severity, with mood disturbance; M48.54XA Collapsed vertebra, not elsewhere classified, thoracic region, initial encounter for fracture; I25.10 Atherosclerotic heart disease of native coronary artery without angina pectoris; E03.9 Hypothyroidism, unspecified; E78.00 Pure hypercholesterolemia, unspecified; F32.A Depression, unspecified; G20.A1 Parkinson's disease without dyskinesia, without mention of fluctuations; G89.29 Other chronic pain; I95.89 Other hypotension; I48.91 Unspecified atrial fibrillation; I10 Essential (primary) hypertension; Z79.2 Long term (current) use of antibiotics; Z79.899 Other long term (current) drug therapy; Z96.641 Presence of right artificial hip joint; Z83.3 Family history of diabetes mellitus; Z82.49 Family history of ischemic heart disease and other diseases of the circulatory system; Z82.3 Family history of stroke; M47.816 Spondylosis without myelopathy or radiculopathy, lumbar region
CPT/HCPCS: 36415; 71045; 80048; 80061; 80307; 81001; 83735; 83880; 84439; 84443; 84484; 85007; 85025; 85027; 93005; 93306; 96360; 99291; G0378